=== PATIENT | female | born 1925 | race Caucasian/White ===

== ENCOUNTER 2016-12-23 00:51 | Inpatient (IN) | payer MEDICARE, OTHER ==
[~2016-12-23] VITALS: Ht 165.1 cm; Wt 59.8 kg
[2016-12-23] VITALS (8 sets, daily range): BP systolic 116–155; BP diastolic 66–88; PULSE 78–115; RESP 14–20; O2SAT 94–98
[~2016-12-23 00:51] MED LIST: ACET-171 PO; CEPH500C PO; CHOL10008 PO; ENOX40DI8 SUBQ; FOLI0.8T PO; FURO40TA4 PO; LIDOCAINE; OXYC5TAB72 PO; PRAM0.252 PO; TRAZ-115 PO; VERA180T5 PO; WARF5TAB7 PO
--- NOTE | 2016-12-23 01:17 | ED.REPORT ---
HPI-Abd Pain F 40 and Over Date of Service Dec 23, 2016 ED Provider: Dr. Cason Pt is an 89 year old female who presents to the ED with complaints of intermittent abdominal pain and an exacerbation of her restless leg syndrome. She reports a recent diagnosis of thickening of the lining of her colon found on a CT scan, ans she is scheduled for a colonoscopy in 6 days. She states that she has been having increased nausea and diarrhea tonight as well. She denies any fevers, vomiting, chest pain, shortness of breath or any other symptoms. Nursing Notes Stated Complaint: ABDOMINAL PAIN Chief Complaint: Female Abdominal Pain Nursing Notes Reviewed: Yes Allergies: Coded Allergies: No Known Allergies (Verified , 04/08/16) Scheduled Cephalexin (Cephalexin) 500 Mg Capsule 500 MG PO TID Cholecalciferol (Vitamin D3) (Vitamin D3) 1,000 Unit Tab.chew 1,000 UNIT PO DAILY Enoxaparin Sodium (Enoxaparin Sodium) 40 Mg/0.4 Ml Syringe 40 MG SUBQ Q24 Folic Acid (Folic Acid) 0.8 Mg Tablet 0.8 MG PO DAILY Furosemide (Furosemide) 40 Mg Tablet 40 MG PO DAILY Pantoprazole DR (Pantoprazole DR) 40 Mg Tablet.dr 40 MG PO DAILY Pramipexole Dihydrochloride (Mirapex) 0.25 Mg Tablet 0.5-1 TAB PO LATE AFTERNOON Pramipexole Dihydrochloride (Mirapex) 0.25 Mg Tablet 1-2 TAB PO HS Trazodone (Trazodone) 50 Mg Tablet 12.5-25 MG PO HS Verapamil ER (Verapamil ER) 180 Mg Tablet.er 180 MG PO DAILY Warfarin Sodium (Warfarin Sodium) 5 Mg Tablet 2.5 MG PO [id number] Warfarin Sodium (Warfarin Sodium) 5 Mg Tablet 5 MG PO MON-WED-FRI Scheduled PRN Acetaminophen (Acetaminophen) 500 Mg Tablet 1,000 MG PO Q8HR PRN PRN For Pain oxyCODONE (oxyCODONE) 5 Mg Tablet 5 MG PO Q4H PRN PRN For Moderate Pain Miscellaneous Medications ([Lidocaine]) General Time Seen by MD: 01:17 Chief Complaint Abdominal pain Hx Obtained From: Patient, Daughter Arrived By: Ambulance Sudden in Onset?: No Onset Occurred: More than a week ago... Symptom Duration: Intermittent Location: : Diffuse Quality: Painful Severity: Current: Mild Severity: Maximum: Mild Similar Sx Previous: Yes Past Medical History Past Medical History Chronic cough Palpitations Arthritis Hypertension CHF Atrial fibrillation Hyperlipidemia Past Surgical History Left hip surgery, fracture repair Family History non-contributory Smoking History Never Smoker Social History Alcohol Use: Denies alcohol use Drug Use: Denies drug use Ambulatory Status Independent Review of Systems Constitutional: Denies: Chills, Fever, Malaise Respiratory: Denies: Non-productive cough, Shortness of breath, Wheezing Cardiovascular: Denies: Chest pain GI: Reports: Abdominal pain, Diarrhea, Nausea, Denies: Constipation, Vomiting Female: Denies: Dysuria, Urinary frequency, Urinary urgency Musculoskeletal: Denies: Back pain Complete sys rev & neg: except as marked. Physical Exam Vital Signs Vital Signs (First) Date Time Temp Pulse Resp B/P Pulse Ox O2 Delivery O2 Flow Rate FiO2 12/23/16 00:55 36.9 104 14 124/73 96 Room Air Initial VS: Reviewed Head / Eyes: Atraumatic, Normocephalic, PERRL ENT: Mucous membranes moist, Conjunctiva normal, No scleral icterus Neck: Supple, Non-tender, Full range of motion Skin: Warm, Dry, No cyanosis Neurologic: Alert, Oriented, Nonfocal General/Constitutional: Awake, Alert Distress / Hydration: Positive: Distress mild Appearance / Presentation: Positive: Uncomfortable Cardiovascular: Heart rate NL, Regular rhythm, Heart sounds NL, No gallop, No murmurs, No rubs Heart Rate / Rhythm: Positive: Tachycardia Abdomen: Soft Bowel Sounds / Distention: Positive: Distention moderate Diffusely tender Back: Atraumatic, Inspection NL Interpretation & Diagnostics Lab Results Interpretation Result Diagram: 12/23/16 0612/23/16 06 Test 12/23/16 01:11 Prothrombin Time 27.3sec (8.1-12.5) Prothromb Time International Ratio 2.50ratio Lactic Acid Level 1.1mmol/L (0.4-2.0) Magnesium Level 2.1mg/dL (1.6-2.6) Troponin T 0.010ug/L (0.0-0.011) Lipase 21U/L (13-60) ECG Interpretation ECG Interpretation: A-fib - 117 Low voltage, extremity leads Prolonged QT interval Time: 01:12 Interpreted by: ED physician Re-Eval/Medical Decision Med Decision/Clinical Course Patient presents with rather intense abdominal pain. She has a diffusely tender and distended abdomen. X-rays are consistent with a small bowel obstruction. Air-fluid levels throughout. She has a leukocytosis and she is on warfarin so therefore were going to proceed with CT scan. I plan on admitting her to the hospitalist service with possible GI or surgical consultation. Source of Hx: Old records, Family Counseled Regarding: Diagnosis, Lab results, Need for admission Discharge & Departure Shift Change Sign-Out Response to Therapy: Improved Primary Impression: Bowel obstruction Intestinal obstruction type: other intestinal obstruction Qualified Code: K56.69 - Other intestinal obstruction Disposition: ADMITTED TO HOSPITAL Discharge Condition All VS Reviewed: Yes Condition: Stable Referrals: Manju Monge MD (PCP) Pia Attestation Portions of this note were transcribed by Sonali Turner. I, Dr. Cason personally performed the history, physical exam and medical decision-making; I reviewed and confirmed the accuracy of the information in the transcribed note. Signed by: Pia Palmer, 12/22/2016 [Time]. copies to: Manju Monge MD, Todd P DO Dec 23, 2016 01:17 MESERET TURNER Dec 23, 2016 01:26 Blood Urea Nitrogen 17mg/dL (8-27) Creatinine 0.50mg/dL (0.57-1.00) Estimat Glomerular Filtration Rate 166mL/min (>59) Glucose Level 135mg/dL (60-99) Lactic Acid Level 1.1mmol/L (0.4-2.0) Calcium Level 9.0mg/dL (8.5-10.1) Magnesium Level 2.1mg/dL (1.6-2.6) Total Bilirubin 0.4mg/dL (0.0-1.2) Aspartate Amino Transf (AST/SGOT) 16U/L (0-50) Alanine Aminotransferase (ALT/SGPT) 12U/L (0-32) Alkaline Phosphatase 94U/L (25-165) Troponin T 0.010ug/L (0.0-0.011) Total Protein 6.1g/dL (6.4-8.4) Albumin 3.2g/dL (3.4-5.0) Lipase 21U/L (13-60) ECG Interpretation ECG Interpretation: A-fib - 117 Low voltage, extremity leads Prolonged QT interval Time: 01:12 Interpreted by: ED physician Re-Eval/Medical Decision Med Decision/Clinical Course Patient presents with rather intense abdominal pain. She has a diffusely tender and distended abdomen. X-rays are consistent with a small bowel obstruction. Air-fluid levels throughout. She has a leukocytosis and she is on warfarin so therefore were going to proceed with CT scan. I plan on admitting her to the hospitalist service with possible GI or surgical consultation. Source of Hx: Old records, Family Counseled Regarding: Diagnosis, Lab results, Need for admission Discharge & Departure Primary Impression: Bowel obstruction Intestinal obstruction type: other intestinal obstruction Qualified Code: K56.69 - Other intestinal obstruction Disposition: ADMITTED TO HOSPITAL Discharge Condition All VS Reviewed: Yes Condition: Stable Referrals: Manju Monge MD (PCP) Pia Attestation Portions of this note were transcribed by Sonali Turner. I, Dr. Cason personally performed the history, physical exam and medical decision-making; I reviewed and confirmed the accuracy of the information in the transcribed note. Signed by: Pia Palmer, 12/22/2016 [Time]. copies to: Manju Monge MD, Todd P DO Dec 23, 2016 01:17 MESERET TURNER Dec 23, 2016 01:26
[2016-12-23 01:29] LABS: BASOPHILS % (AUTO) 0.3 % (0-3); EOSINOPHILS % (AUTO) 1.3 % (0-5); MONOCYTES % (AUTO) 9.1 % (4-12); Mean Corpuscular Hemoglobin 26.2 pg (27.0-35.0); Mean Corpuscular Volume 84.1 fL (81-100); NEUTROPHILS % (AUTO) 70.7 % (40-74); Platelet Count 377 bil/L (150-400)
[2016-12-23] MEDS ORDERED: 0.9% Sodium Chloride 500 ML IV ONE (01:35)
[2016-12-23] MEDS: HYDROmorphone 0.5 mg/0.5 mL iSecure Syringe IVPUSH PRN ×5 (01:39→23:20)
[2016-12-23] MEDS: Ondansetron 2 mg/mL 2 mL Inj IVPUSH PRN ×2 (01:39→03:06)
[2016-12-23 01:44] LABS: INR 2.5 ratio
[2016-12-23 01:57] LABS: TROPONIN T 0.01 ug/L (0.0-0.011)
[2016-12-23 02:07] LABS: Magnesium 2.1 mg/dL (1.6-2.6)
[2016-12-23] MEDS ORDERED: Ondansetron 2 mg/mL 2 mL Inj IVPUSH PRN ×2 (03:25→04:05)
--- NOTE | 2016-12-23 04:00 | NUR ---
Admission and NG Patient came the [facility] on an ER gurney with her [employer]. Patient was moved into bed with a slide board and assessment completed. Patient reported generalized abdominal pain and mild nausea without vomiting. Patient had an NG placed in ER. Placement verified by auscultation of the stomach and tube was secured to the nose with an adhesive NG hardy. NG tube at 65cm and set to low intermittent suction. Normal saline started at 100ml/hr and patient reports no needs at this time. Admission completed and fall precautions in place.
[2016-12-23] MEDS ORDERED: PANT40TA3 PO (04:38)
[2016-12-23] MEDS: 0.9% Sodium Chloride 1,000 ML IV SCH ×3 (05:15→22:56)
--- NOTE | 2016-12-23 05:20 | PCM.HPMED ---
Subjective Date of Service Dec 23, 2016 Primary Provider: Admitting Physician: Анна Brunner DO Primary Care Physician: Manju Monge MD Attending Physician: Анна Brunner DO Admit Status: From the Emergency Department Chief Complaint: Abdominal pain and nausea History of Present Illness: 89-year-old female patient with history of atrial fibrillation on Coumadin, hypertension, irritable bowel syndrome, arthritis presented to the ER with complaint of worsening abdominal pain. Patient reports for the past few months she has been experiencing worsening diarrhea, vomiting and abdominal pain. She states that she was seen by Dr. Cisneros of gastroenterology and they had planned/ scheduled a colonoscopy. Patient's daughter reports that Dr. Cisneros informed them that it was possible that there was a cancer/tumor causing an obstruction. Patient reports that tonight she felt increasingly weak and nauseated. Patient reports that she felt like she needed to vomit but was unable to. Patient states that she had a bowel movement this morning, but has not had anything since then. Patient reports that she is able to burp, but has not been able to pass gas. Patient describes the pain in her abdomen as diffuse and sharp. She denies any radiation of the pain. Patient denies any fever, chills, myalgias, chest pain or shortness of breath. Patient denies any hematochezia or melena. Vital signs in the ER as follows, temperature 36.9, pulse 104, respiratory rate 14, blood pressure 124/73, pulse ox 96 on room air. Review of Systems: A comprehensive review of systems was conducted with the patient and found to be negative except as above in the History of Present Illness. Allergies Coded Allergies: No Known Allergies (Verified , 04/08/16) Home Medications Furosemide 40 mg, one tablet daily Ketoconazole topical cream Pantoprazole 40 mg daily Potassium chloride 8 mEq 1 tablet daily Pramipexole 0.25 mg, 1 tablet in the afternoon and 2 tablets at bedtime Verapamil 180 mg 1 tablet daily Vitamin D3 1000 units 1 tablet daily Warfarin 5 mg tablet, 1 tablet Monday, half tablet Monday Iron supplements Folate acid supplements Trazodone PMH Atrial fibrillation on anticoagulation with Coumadin Hypertension Hyperlipidemia Mitral regurgitation Chronic cystitis Irritable bowel syndrome Restless leg syndrome Arthritis Sleep apnea requiring CPAP at night Spondylolysis of cervical spine Closed fracture of left femoral neck-2016 Surgical History Cholecystectomy Hysterectomy Bladder sling Tonsillectomy and adenoidectomy Appendectomy Left hip surgery Right hip replacement Family History Brother-cardiac issues Father-sudden cardiac Mother-CVA Social History Hx Alcohol Use: Yes (very rarely) Hx Substance Use: No Hx Tobacco Use: No Smoking Status: Never Smoker Living Arrangement: with Family Exam Vital Signs Vital Sign - Last Date Time Temp Pulse Resp B/P Pulse Ox O2 Delivery O2 Flow Rate FiO2 12/23/16 04:14 36.6 115 18 155/79 97 Room Air Intake and Output 12/22/16 12/22/16 12/23/16 Cumulative From/Thru 15:00 23:00 07:00 12/23/16 00:55 - 12/23/16 04:16 Intake Total 500 ml 500 ml Balance 500 ml 500 ml Intake IV Total 500 ml 500 ml Exam General: Mild distress, well-developed, well-nourished, appropriately interactive HEENT: NG tube in place .Normocephalic, atraumatic. External ears without defect. Pupils equal, round, and reactive to light and accommodation. Moist conjunctivae. Oropharynx with moist mucosa. Neck: Supple with full range of motion.No lymphadenopathy Cardiovascular: Irregularly irregular rate and rhythm with systolic murmur auscultated . No rubs, or gallops appreciated Pulmonary: Clear to auscultation bilaterally with no crackles, wheezes, or rhonchi. Normal respiratory effort with no use of accessory muscles. Abdomen: Diffusely tender abdomen. Hypotonic bowel tones present. Soft and nondistended abdomen . Extremities: Trace pitting edema bilateral lower extremities Skin: Normal temperature, turgor, and texture; no rash, ulcers, or subcutaneous nodules appreciated. Psychiatric: Normal mood and affect. Alert and oriented to person, place, and time. Lab and Diagnostics Result Diagram: 12/23/1611012/23/16 011 X-Rays, CTs and MRIs CT abdomen and pelvis with contrast-- -- In the mid to distal descending colon there is an irregular concentric lesion narrowing the bowel lumen. Beyond this point the colon is collapsed. Proximal to the lesion there is severe dilatation of the cecal region. There is associated diffuse dilatation of the distal and mid small bowel. There is no bowel wall thickening in the small bowel and no intramural air. There is some stranding in the mesenteric fat. -- Concentric lesion in the ascending colon producing colonic obstruction and secondary small bowel obstruction. The appearance is suspicious for adenocarcinoma of the colon Additional Diagnostics: Most recent echocardiogram was 03/11/2014 -"EF was 55-60%. Left atrium was severely dilated. Right atrium was severely dilated. There was mild to moderate mitral regurg. There was mild tricuspid regurg." Assessment & Plan Acute small bowel obstruction secondary to concentric lesion in the ascending colon, present on admission, ongoing -Patient presented with worsening abdominal pain and nausea -Patient previously seen by Dr. Cisneros of GI with plan for colonoscopy -CT performed in the ER demonstrating small bowel obstruction secondary to concentric lesion in the ascending colon, suspicious for adenocarcinoma -Discussed results with patient and family and are aware it could represent a malignancy -NG tube placed -Pt is NPO -NS 100mls/hr -Dilaudid available for pain management -ER physician spoke with GI, and they will see the patient in the AM -Continue to monitor labs Acute leukocytosis unknown etiology, present on admission, ongoing -Patient has mild leukocytosis 11.5, neutrophils 70.0 -UA pending -No clear etiology at this time -Have not started the patient on antibiotics Chronic atrial fibrillation anticoagulated with Coumadin, present on admission, stable -Continue with home dose of verapamil -Last echo done in 2013 -Pharmacy to dose warfarin Chronic hypertension, stable, present on admission, ongoing -Continue with home medications -Continue to monitor Obstructive sleep apnea managed with CPAP, stable, present on admission, ongoing -Day team to contact respiratory therapy for CPAP machine Restless leg syndrome, chronic, stable -Continue with home medications -Continue to monitor PCP: Gastroenterology: Dr. Cisneros Electrical Tester Battery: Dr. Rascon CODE STATUS: Full code Patient is admitted under inpatient status with expected length of stay greater than 2 midnights due to severity of presenting symptoms, risk of adverse event, and complexity of treatment plan. Pain Evaluation: Adequate Pain Control VTE Prophylaxis: SCDs Resuscitation Status: CPR: Attempt Resuscitation Attending Statement The patient was seen and examined together with house staff on 12/23/2016 and I agree with the history, exam and plan as outlined in the note above. copies to: Manju Monge MD, Tara L DO Dec 23, 2016 05:04 Анна Brunner DO Dec 23, 2016 05:42
[2016-12-23 06:27] LABS: BASOPHILS % (AUTO) 0.3 % (0-3); EOSINOPHILS % (AUTO) 0.3 % (0-5); Mean Corpuscular Hemoglobin 26.1 pg (27.0-35.0); Mean Corpuscular Volume 84.7 fL (81-100); NEUTROPHILS % (AUTO) 77.4 % (40-74); Platelet Count 368 bil/L (150-400)
--- NOTE | 2016-12-23 08:50 | DRSVH ---
PROCEDURE: CT ABDOMEN AND PELVIS WITH CONTRAST ([id number]) INDICATIONS: abdominal pain, known colon lesion, leukocytosis TECHNIQUE: After the administration of intravenous contrast, 5 mm thick sections acquired from the diaphragm to the symphysis. 5 mm coronal and sagittal reformats were acquired. For radiation dose reduction, the following was used: automated exposure control, adjustment of mA and/or kV according to patient elsie lakhani. COMPARISON: [facility], CT, CT ABD PELVIS W CON, 12/06/2016, 12:00. FINDINGS: Image quality: Excellent. ABDOMEN: Lung bases: Lung bases are clear. Heart size is normal. Solid organs: Liver and spleen are normal in size and enhancement. Gallbladder surgically absent. Th ere is mild intrahepatic biliary ductal dilatation and the common bile duct is mildly ectatic through out its course. Pancreas enhances normally. No adrenal nodules. Kidneys demonstrate normal size and enhancement, without hydronephrosis. Peritoneum and bowel: The stomach is fluid-filled. There is diffuse, moderate dilatation throughout t he small bowel. A thickwalled, enhancing mass is present within the mid ascending colon. There is mar ked dilatation of the cecum. The downstream colon is decompressed. Nodes and vessels: No retroperitoneal or mesenteric adenopathy by size criteria. Aorta and inferior vena cava are normal in size. There are scattered atheromatous calcifications throughout the aorta and iliac arteries bilaterally. Miscellaneous: No ventral hernias. PELVIS: Genitourinary: Bladder wall thickness is normal. The uterus is nonvisualized and may be surgically absent. Miscellaneous: No inguinal hernias or adenopathy. Bones: No suspicious bony lesions. No vertebral body compression fractures. Bilateral hip arthropl asties are grossly intact. IMPRESSION: 1. 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 Note: The preliminary [facility] interpretation and the final report are concordant. Dictated by: Brynn Marques M.D. on 12/23/2016 at 8:43 Approved by: Brynn Marques M.D. on 12/23/2016 at 8:48
--- NOTE | 2016-12-23 09:24 | DRSVH ---
PROCEDURE: X-RAY ACUTE ABDOMINAL SERIES ([id number]) INDICATIONS: acute abdominal pain TECHNIQUE: One view chest and two views of the abdomen were acquired. COMPARISON: Merged With [facility], CT, CT ABD PELVIS W CON, 12/23/2016, 2:50. FINDINGS: Surgical changes and devices: Bilateral hip arthroplasties and cholecystectomy clips. Chest: Lungs are clear. Heart size is normal. No pleural effusions. No pneumoperitoneum. Abdomen: Abnormal bowel gas pattern is present. Asymmetric dilatation of small bowel throughout the abdomen and pelvis with paucity of gas within the colon. No pneumatosis or bowel wall thickening. No pneumoperitoneum. Bones: No suspicious bony lesions. IMPRESSION: Persistent small bowel obstructive pattern. Dictated by: Marcial YIN Interpreted: Brynn Marques MD on 12/23/2016 at 9:22 Transcribed by: JONATAN on 12/23/2016 at 9:23 Approved by: Brynn Marques M.D. on 12/23/2016 at 14:53
--- NOTE | 2016-12-23 10:49 | PCM.PNMED ---
Subjective Date of Service Dec 23, 2016 Subjective 89-year-old female patient with history of atrial fibrillation on Coumadin, hypertension, irritable bowel syndrome, arthritis presented to the ER with complaint of worsening abdominal pain. Today, she states that she has had 2 loose bowel movements since last night. One bowel movement was very large. She is no longer nauseous. Her abdominal pain is still present, but feels better after the bowel movement. She noticed that her abdomen is also less distended. Exam Vital Signs Vital Sign - Last Date Time Temp Pulse Resp B/P Pulse Ox O2 Delivery O2 Flow Rate FiO2 12/23/16 08:00 96 12/23/16 04:14 36.6 18 155/79 97 Room Air Intake and Output 12/22/16 12/22/16 12/23/16 Cumulative From/Thru 15:00 23:00 07:00 12/23/16 00:55 - 12/23/16 06:43 Intake Total 500 ml 500 ml Balance 500 ml 500 ml Intake Oral 0 ml 0 ml IV Total 500 ml 500 ml # Voids 1 1 # Bowel Movements 1 1 Exam General: Mild distress, well-developed, well-nourished, appropriately interactive HEENT: NG tube in place .Normocephalic, atraumatic. External ears without defect. Pupils equal, round, and reactive to light and accommodation. Moist conjunctivae. Oropharynx with moist mucosa. Neck: Supple with full range of motion.No lymphadenopathy Cardiovascular: Irregularly irregular rate and rhythm with systolic murmur auscultated . No rubs, or gallops appreciated Pulmonary: Clear to auscultation bilaterally with no crackles, wheezes, or rhonchi. Normal respiratory effort with no use of accessory muscles. Abdomen: Mild diffusely tender abdomen. Hyperactive bowel tones present. Soft and nondistended abdomen . Extremities: Trace pitting edema bilateral lower extremities Skin: Normal temperature, turgor, and texture; no rash, ulcers, or subcutaneous nodules appreciated. Psychiatric: Normal mood and affect. Alert and oriented to person, place, and time. IVs and Medications Medications Reviewed: Medications were reviewed in detail Lab and Diagnostics Result Diagram: 12/23/1660412/23/16604 X-Rays, CTs and MRIs PROCEDURE: CT ABDOMEN AND PELVIS WITH CONTRAST IMPRESSION: 1. 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 Approved by: Brynn Marques M.D. on 12/23/2016 at 8:48 PROCEDURE: X-RAY ACUTE ABDOMINAL SERIES IMPRESSION: Persistent small bowel obstructive pattern. Dictated by: Marcial YIN Interpreted: Brynn Marques MD on 12/23/2016 at 9:22 Transcribed by: JONATAN on 12/23/2016 at 9:23 Additional Diagnostics Most recent echocardiogram was 03/11/2014 -"EF was 55-60%. Left atrium was severely dilated. Right atrium was severely dilated. There was mild to moderate mitral regurg. There was mild tricuspid regurg. Assessment & Plan #Acute bowel obstruction secondary to concentric lesion in the ascending colon , present on admission, resolving -Patient presented with worsening abdominal pain and nausea, which improved after bowel movements this morning. -Patient previously seen by Dr. Cisneros of GI with plan for colonoscopy -CT performed in the ER demonstrating small bowel obstruction secondary to concentric lesion in the ascending colon, suspicious for adenocarcinoma -Discussed results with patient and family and are aware it could represent a malignancy -NG tube placed -Pt is NPO -NS 100mls/hr -Dilaudid available for pain management -ER physician spoke with GI, and they will see the patient today -will hold warfarin in case colonoscopy and biopsy decided on current admission, current INR 2.5 # suspected colon cancer,under workup -awaiting colonoscopy and biopsy #Acute leukocytosis due to SBO, present on admission, ongoing -Patient had mild leukocytosis 11.5, neutrophils 70.0 initially. -UA pending -No clear etiology at this time -Have not started the patient on antibiotics #Chronic atrial fibrillation anticoagulated with Coumadin, present on admission , stable -Continue with home dose of verapamil -Last echo done in 2013 -hold warfarin for now #Chronic hypertension, stable, present on admission, ongoing -Continue with home medications -Continue to monitor #Obstructive sleep apnea managed with CPAP, stable, present on admission, ongoing -Day team to contact respiratory therapy for CPAP machine #Restless leg syndrome, chronic, stable -Continue with home medications -Continue to monitor PCP: Gastroenterology: Dr. Cisneros Operator Coating Furnace: Dr. Rascon CODE STATUS: Full code disposition:pending hspital course and GI recs VTE Prophylaxis: SCDs VTE Mechanical Devices: Intermittant Pneumatic CD Resuscitation Status: CPR: Attempt Resuscitation Joselyn Oseguera DO Dec 23, 2016 10:38 Ismael Vasquez MD Dec 23, 2016 14:18
--- NOTE | 2016-12-23 11:41 | NUR ---
Social Work: Initial Assessment D: Per EMR review, pt is an 89 year old female admitted for bowel obstruction/AFIB with RVR. Pt is Medicare with [employer] Supplement; pt has no LTC insurance or VA benefits. PCP is Manju Monge MD. NOK is Courtney Resendiz, Spouse, . Advanced directives completed but not on file- family will locate a copy and provide for pt's chart. Readmit score not entered at this this time. CIRCULATION ANALYST met with pt and family at bedside. Sw role explained and contact information provided. See initial assessment. Pt and spouse live in an Independent Living facility on [facility]. Pt is I with ADLs and uses a 4WW at baseline. Pt continues to drive and has no concerns about discharge home when medically stable. Pt states she has no steps to enter her home. She has a history with [facility] for RN and PT however is not currently open for services. Pt has also been a resident at [facility]. Pt has very good family support and has a daughter who is an RN and flying in to stay with the pt for several weeks. Pt and family would like a new order for home health. HH CHOICE LIST PROVIDED. Preference is for [facility]. CIRCULATION ANALYST will review pt's clinical progress and discuss with MD whether HH is appropriate for the pt. F2F is in folder for MD signature if pt meets criteria. A: Pt who is I at baseline. P: Anticipate pt to discharge home; CIRCULATION ANALYST to r/o HH for this pt. Preference is for [facility] if pt meets criteria. No referral made at this time. LUIS MANUEL Gilbert Addendum: 12/23/16 at 1146 by BRADLEY NOWAK SS Amended: Links added.
--- NOTE | 2016-12-23 18:05 | PCM.CHPMED ---
Subjective Date of Service: Dec 23, 2016 Primary Physician: Admitting Physician: Анна Brunner DO Primary Care Physician: Manju Monge MD Attending Physician: Анна Brunner DO Chief Complaint: Chief Complaint: GI consult note: Abdominal pain, nausea. History of Present Illness: This is an 89-year-old female with past medical history significant for atrial fibrillation on chronic Coumadin, hypertension, irritable bowel syndrome, past cholecystectomy who presented to [facility] on 12/22/2016 for nausea and abdominal pain. The patient's GI history is significant for chronic abdominal discomfort. The patient was seen in the GI clinic in May 2015 due to a change in bowel patterns, alternating diarrhea and constipation. The patient was diagnosed with narcotic bowel syndrome and EGD and colonoscopy were offered but patient declined. Her symptoms have progressed since this time and she states that now she has chronic diarrhea and bowel incontinence occurring several times per week. She also suffered from some unintentional weight loss. The patient most recently saw Dr. Cisneros on 12/14/2016 in GI clinic to review a CAT scan that showed irregularity with enhancement of colonic mucosa in the ascending colon. Dr. Cisneros felt the differential included cancer and spoke to patient about treatment such as surgery and possible chemotherapy. The patient did state at that time that she would like to pursue aggressive treatment. A colonoscopy was set up at that point to be performed on an outpatient basis. Beginning approximately one week ago the patient began to have worsening abdominal pain that was present in the right upper quadrant. The patient states that she had nausea associated but was not able to vomit. The patient continues to have multiple bowel movements per day that are described as diarrhea. She has had several episodes of incontinence as well. She denies any melena, hematochezia, hemoptysis, hematemesis, shortness of breath, chest pain or pressure, fevers, chills. Patient's initial vitals in the hospital were temperature 36.9 Celsius, pulse 104, respiratory rate 14, blood pressure 124/73 Her initial laboratory results showed a WBC of 11.7, hemoglobin 10.7, hematocrit 34.4, and platelets of 377. Her CMP showed a blood glucose of 135 but was otherwise without concerning abnormalities. Albumin was 3.2, lipase 21. Total bilirubin 0.4, AST 16, ALT 12 , alkaline phosphatase 94. Occult blood test was positive. 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 The patient was admitted to the hospital and NG tube was placed, NPO status, patient was given IV fluids, and Dilaudid was given for pain control. Today, the patient states that her abdominal pain is much improved. She continues to have multiple episodes of diarrhea today. She states that she has had bowel incontinence throughout the day. She denies any melena or hematochezia today. Review of Systems: A comprehensive review of systems was conducted with the patient and found to be negative except as above in the History of Present Illness. PMH Past Medical History History of chronic abdominal pain Recurrent UTIs History of chronic cystitis Hypertension Hyperlipidemia Atrial fibrillation on chronic warfarin Mitral regurgitation Chronic pain Irritable bowel syndrome Restless leg syndrome Sleep apnea requiring CPAP Closed fracture left femoral neck Chronic diarrhea. Surgical History Cholecystectomy Hysterectomy Bladder sling Tonsillectomy and adenoidectomy Appendectomy Left hip surgery Right hip replacement Home Medications Deisi Vera. [id number] 1925 12/14/2016 12:10 PM /5 acetaminophen 500 mg tablet take 2 tablet by oral route every 8 hours as needed FUROSEMIDE 40MG TABLET = TAKE ONE TABLET BY MOUTH ONCE DAILY TAKE AN EXTRA 1/2 TAB ONCE DAILY NEEDED FOR EDEMA pantoprazole 40 mg tablet,delayed release take 1 tablet by oral route every day potassium chloride ER 8 mEq tablet,extended release take 1 tablet by oral route every day with food pramipexole 0.25 mg tablet take 1 tablet in late afternoon and 2 tablets before bedtime for RLS verapamil ER 180 mg 24 hr capsule,extended release take 1 capsule by oral route every day Vitamin D3 1,000 unit capsule d1 daily warfarin 5 mg tablet take 1/2 tablet (2.5mg) daily except 1 tablet (5mg) MWF or as directed by coumadin clinic Allergies: Coded Allergies: No Known Allergies (Verified , 04/08/16) Family History Family History Family history is negative for gastrointestinal cancer. Father and brother both of heart attacks at the age of 80. Mother had CVA, colitis. Brother had colitis with colectomy. Social History Hx Alcohol Use: Yes (very rarely)Hx Substance Use: NoHx Tobacco Use: No Smoking Status: Never Smoker Living Arrangement: with Family Exam Vital Signs Vital Sign - Last Date Time Temp Pulse Resp B/P Pulse Ox O2 Delivery O2 Flow Rate FiO2 12/23/16 11:29 36.9 78 18 130/75 96 Room Air Intake and Output 12/22/16 12/22/16 12/23/16 Cumulative From/Thru 15:00 23:00 07:00 12/23/16 00:55 - 12/23/16 06:43 Intake Total 500 ml 500 ml Balance 500 ml 500 ml Intake Oral 0 ml 0 ml IV Total 500 ml 500 ml # Voids 1 1 # Bowel Movements 1 1 Additional Information: General: No acute distress, well-developed, well-nourished, appropriately interactive HEENT: Normocephalic, atraumatic. External ears without defect. Pupils equal, round, and reactive to light and accommodation. Anicteric sclerae, moist conjunctivae, and no lid lag. Neck: Supple with full range of motion. No jugular venous distension. No bruits. No lymphadenopathy or thyromegaly. Cardiovascular: Regular rate and rhythm with no murmurs, rubs, or gallops appreciated Pulmonary: Clear to auscultation bilaterally with no crackles, wheezes, or rhonchi. Normal respiratory effort with no use of accessory muscles. Abdomen: Bowel tones present. Soft, nondistended, nontender. No hepatosplenomegaly or masses appreciated. Extremities: No clubbing, cyanosis, edema, or lymphadenopathy appreciated. Skin: Normal temperature, turgor, and texture; no rash, ulcers, or subcutaneous nodules appreciated. Neurological: Cranial nerves grossly intact. Normal muscle strength, tone, and bulk. Reflexes, coordination, and sensory function within normal limits. No known gait impairment. Psychiatric: Normal mood and affect. Alert and oriented to person, place, and time. Lab and Diagnostics Result Diagram: 12/23/1660412/23/16 06 X-Rays, CTs and MRIs Abdominal x-ray 12/23/2016: IMPRESSION: Persistent small bowel obstructive pattern. Dictated by: Marcial Griffith RRSoham Interpreted: Brynn Marques MD on 12/23/2016 at 9:22 CT of the abdomen and pelvis with contrast on 12/23/2016: IMPRESSION: 1. 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 Note: [facility] and the final report are concordant. Dictated by: Brynn Marques M.D. on 12/23/2016 at 8:43 Assessment & Plan Assessment This is a 89-year-old female who states that since 2014 she has had alternating diarrhea and constipation. More recently she has had increasing episodes of diarrhea as well as bowel incontinence. She is also had an unintentional weight loss of approximately 10 pounds in last year. 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 Colonic mass: -Patient will need colonoscopy. Plan is for Monday. Will monitor INR with goal to be at 1.5. Full bowel prep tomorrow. -Continue NG tube. -Clear liquid diet ordered -CEA level ordered. Problems: Pain Evaluation: Adequate Pain Control VTE Prophylaxis: SCDs VTE Mechanical Devices: Intermittant Pneumatic CD Resuscitation Status: CPR: Attempt Resuscitation Attending Statement Patient seen and examined. Agree with assessment and plan as described by Dr Smith. Obstruction symptom have abated. Prep tomorrow. Colonoscopy Monday. Please do not assess a physician charge from me for this note. Juan Smith DO Dec 23, 2016 15:39 Willian Sanchez MD Dec 23, 2016 22:09
--- NOTE | 2016-12-23 18:48 | NUR ---
Shift: No c/o nausea or vomiting, NG tube with approx 100mL output. Pending Gi consult. Care ongoing.
[2016-12-24] VITALS (9 sets, daily range): BP systolic 105–157; BP diastolic 49–97; PULSE 67–128; RESP 16–20; O2SAT 92–97
[2016-12-24 03:32] LABS: BASOPHILS % (AUTO) 0.6 % (0-3); EOSINOPHILS % (AUTO) 3.6 % (0-5); MONOCYTES % (AUTO) 13.7 % (4-12); Mean Corpuscular Hemoglobin 26.2 pg (27.0-35.0); Mean Corpuscular Volume 86.6 fL (81-100); NEUTROPHILS % (AUTO) 55.6 % (40-74); Platelet Count 344 bil/L (150-400)
--- NOTE | 2016-12-24 03:35 | NUR ---
GI: NG secured and in place throughout shift to low intermittent suction. Green/brown NG output during shift. No bowel movements passed during shift. Denies nausea. No overt signs or symptoms of distress.
--- NOTE | 2016-12-24 05:02 | NUR ---
NG tube output: No previous shifts have appeared to have documented NG drainage amount for their shift, or have marked NG suction container for their prior shifts. Therefore, this shift, NG output of 800mL is the result of this shift and previous shifts NG output combined. Will notify following shifts that NG suction output is to be drained and documented each shift.
[2016-12-24] MEDS: HYDROmorphone 0.5 mg/0.5 mL iSecure Syringe IVPUSH PRN ×2 (06:09→15:19)
[2016-12-24 10:55] LABS: INR 2.73 ratio
--- NOTE | 2016-12-24 11:22 | PROG NOTE ---
[address] [address] PROGRESS NOTE PATIENT: ERNESTINE ENGLISH : 1925 MR#: [id number] ADMIT: 12/23/2016 JOB ID: [id number] DATE: 12/24/2016 SUBJECTIVE: The patient tolerated liquids but we inadvertently forgot to clamp her NG tube, so a lot of what she consumed simply ended up in the bedside canister. She certainly had no further symptoms of obstruction overnight. OBJECTIVE: Blood pressure this morning 145/49, breathing 20, pulse 106, temperature 36.6, 97% on room air. The patient was in no distress. Alert, oriented, appropriate, cooperative. Her daughter from [place] had arrived and was at the bedside. NG was in situ. Looked like there was a small amount of old blood in the tubing as well. LABORATORIES: INR is still pending for this morning. Hemoglobin is 10.0, white count 8.5, creatinine 0.42. The CEA level was within normal limits at 2.6. ASSESSMENT AND PLAN: An 89-year-old female with abnormal imaging concerning for an ascending colon malignancy. Her acute obstructive symptoms have subsided. She will receive bowel prep today by way of the NG tube. It will be a split prep with half the prep tomorrow morning between 6 and 8 a.m. NPO after 8 a.m. for procedure sometime mid to late morning. Based on her atrial fibrillation and age, I have requested anesthesia support for her sedation needs. Please do not apply a physician charge to this particular note today. This was a no charge visit. QUENTIN
[2016-12-24] MEDS: Verapamil SR 180 mg ER12 Tablet PO SCH (12:03)
--- NOTE | 2016-12-24 12:30 | PCM.PNMED ---
Subjective Date of Service Dec 24, 2016 Subjective 89-year-old female patient with history of atrial fibrillation on Coumadin, hypertension, irritable bowel syndrome, arthritis presented to the ER with complaint of worsening abdominal pain. Ms. Vera states that she continues to no longer have nausea or vomiting. Her abdominal pain has improved since she first come. She has no concerns this morning. Exam Vital Signs Vital Sign - Last Date Time Temp Pulse Resp B/P Pulse Ox O2 Delivery O2 Flow Rate FiO2 12/24/16 11:50 37.5 128 18 157/75 92 Room Air Intake and Output 12/23/16 12/23/16 12/24/16 Cumulative From/Thru 14:59 22:59 06:59 12/23/16 00:55 - 12/24/16 06:28 Intake Total 625 ml 832 ml 1957 ml Output Total 400 ml 1500 ml 1900 ml Balance 225 ml -668 ml 57 ml Intake Oral 0 ml 200 ml 200 ml IV Total 625 ml 632 ml 1757 ml Output Urine Total 400 ml 700 ml 1100 ml Gastric Drainage Total 800 ml 800 ml # Voids 2 2 5 # Bowel Movements 4 5 Exam General: Mild distress, well-developed, well-nourished, appropriately interactive HEENT: NG tube in place .Normocephalic, atraumatic. External ears without defect. Pupils equal, round, and reactive to light and accommodation. Moist conjunctivae. Oropharynx with moist mucosa. Neck: Supple with full range of motion.No lymphadenopathy Cardiovascular: Irregularly irregular rate and rhythm with systolic murmur auscultated . No rubs, or gallops appreciated Pulmonary: Clear to auscultation bilaterally with no crackles, wheezes, or rhonchi. Normal respiratory effort with no use of accessory muscles. Abdomen: Mild diffusely tender abdomen. Normal bowel tones present. Soft and nondistended abdomen . Extremities: Trace pitting edema bilateral lower extremities Skin: Normal temperature, turgor, and texture; no rash, ulcers, or subcutaneous nodules appreciated. Psychiatric: Normal mood and affect. Alert and oriented to person, place, and time. IVs and Medications Medications Reviewed: Medications were reviewed in detail Lab and Diagnostics Result Diagram: 12/24/16 0325 12/24/16 0325 X-Rays, CTs and MRIs PROCEDURE: CT ABDOMEN AND PELVIS WITH CONTRAST IMPRESSION: 1. 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 Approved by: Brynn Marques M.D. on 12/23/2016 at 8:48 PROCEDURE: X-RAY ACUTE ABDOMINAL SERIES IMPRESSION: Persistent small bowel obstructive pattern. Dictated by: Marcial YIN Interpreted: Brynn Marques MD on 12/23/2016 at 9:22 Transcribed by: JONATAN on 12/23/2016 at 9:23 Additional Diagnostics Most recent echocardiogram was 03/11/2014 -"EF was 55-60%. Left atrium was severely dilated. Right atrium was severely dilated. There was mild to moderate mitral regurg. There was mild tricuspid regurg. Assessment & Plan 89-year-old female patient with history of atrial fibrillation on Coumadin, hypertension, irritable bowel syndrome, arthritis presented to the ER with complaint of worsening abdominal pain. # suspected colon cancer,under workup -CT performed in the ER demonstrating small bowel obstruction secondary to concentric lesion in the ascending colon, suspicious for adenocarcinoma -Discussed results with patient and family and are aware it could represent a malignancy -CT abdomen and pelvis as above -awaiting colonoscopy and biopsy tomorrow -Bowel prep tonight and tomorrow morning -Clear liquid diet until midnight then NPO after midnight #Acute bowel obstruction secondary to concentric lesion in the ascending colon , present on admission, resolving -Patient presented with worsening abdominal pain and nausea, which improved after bowel movements on 12/23/16. -Patient previously seen by Dr. Cisneros of GI with plan for colonoscopy -NG tube placed -Dilaudid available for pain management -Hold warfarin in preparation for colonoscopy and biopsy with goal of INR 1.5. Colonoscopy tomorrow late morning or afternoon. #Acute leukocytosis due to SBO, present on admission, improving -Patient had mild leukocytosis 11.5, neutrophils 70.0 initially. -UA pending -No clear etiology at this time -Have not started the patient on antibiotics #Chronic atrial fibrillation anticoagulated with Coumadin, present on admission , stable -Continue with home dose of verapamil -Last echo done in 2013 -hold warfarin for now #Chronic hypertension, stable, present on admission, ongoing -Continue with furosemide -Continue to monitor #Obstructive sleep apnea managed with CPAP, stable, present on admission, ongoing -Contact respiratory therapy for CPAP machine once patient no longer has NG tube in place #Restless leg syndrome, chronic, stable -Continue with home medications -Continue to monitor PCP: Gastroenterology: Dr. Cisneros Accountant Cost: Dr. Rascon CODE STATUS: Full code disposition:pending hospital course and GI recs VTE Prophylaxis: SCDs VTE Mechanical Devices: Intermittant Pneumatic CD Resuscitation Status: CPR: Attempt Resuscitation Attending Statement The patient was seen and examined together with Dr. Oseguera on 12/24/2016 and I agree with the history, exam and plan as outlined in the note above. Joselyn Oseguera DO Dec 24, 2016 12:30 Ismael Vasquez MD Dec 24, 2016 16:57
[2016-12-24] MEDS ORDERED: Furosemide 10 mg/mL 2 mL Inj IVPUSH ONE (14:00)
[2016-12-24] MEDS: PEG/Electrolytes 4,000 mL Solution PO SCH (16:02)
--- NOTE | 2016-12-24 18:34 | NUR ---
Bowel Prep patient started prep at 1600hrs, GoLytely via NG tube. patient tolerated well. 2 liters in by 1830hrs. patient reported mild nausea once during prep, slowed intake of GoLytely and nausea resolved. continue to monitor.
[2016-12-25] VITALS (17 sets, daily range): BP systolic 85–149; BP diastolic 42–99; PULSE 63–130; RESP 16–20; O2SAT 88–98
[2016-12-25] MEDS: HYDROmorphone 1 mg/mL Inj IVPUSH PRN ×3 (00:11→17:31)
[2016-12-25 02:48] LABS: BASOPHILS % (AUTO) 0.3 % (0-3); EOSINOPHILS % (AUTO) 0.3 % (0-5); MONOCYTES % (AUTO) 10.7 % (4-12); Mean Corpuscular Hemoglobin 26.1 pg (27.0-35.0); NEUTROPHILS % (AUTO) 64.2 % (40-74); Platelet Count 315 bil/L (150-400)
[2016-12-25 03:14] LABS: INR 2.92 ratio
[2016-12-25] MEDS ORDERED: 0.9% Sodium Chloride 250 ML ONE (04:18)
[2016-12-25] MEDS: PEG/Electrolytes 4,000 mL Solution PO SCH (05:58)
--- NOTE | 2016-12-25 06:08 | NUR ---
INR/Colonoscopy prep: INR: 2.92 this a.m. 2 units FFP administered per physician order for INR >2. Repeat INR scheduled for 0900. FFP transfused with no adverse effects observed. Second half of go-lytely colonoscopy prep started at 0600 per physician order (2 liters to be administered between [id number]). Pt. to be NPO after 0800 per physician order.
[2016-12-25] MEDS ORDERED: KCl 40 mEq/D5W 500 mL 40 MEQ in IV Premix 500 EACH IV ONE (07:20)
[2016-12-25] MEDS ORDERED: Potassium Phos (mEq) Inj 40 MEQ in Dextrose 5% 500 ML IV ONE (07:35)
[2016-12-25] MEDS ORDERED: Potassium Chloride 20 mEq/15 mL 15mL Oral Soln PO ONE (07:35)
[2016-12-25] MEDS ORDERED: Potassium Chloride Inj 30 MEQ in Dextrose 5% 100 ML IV ONE (07:50)
[2016-12-25 09:57] LABS: INR 1.85 ratio
[2016-12-25] MEDS: Verapamil SR 180 mg ER12 Tablet PO SCH (10:25)
[2016-12-25] MEDS ORDERED: 0.9% Sodium Chloride 1,000 ML ONE (10:40)
[2016-12-25] MEDS ORDERED: fentaNYL-PF 50 mCg/mL 2 mL Inj ONE (10:41)
--- NOTE | 2016-12-25 10:42 | PCM.PNMED ---
Subjective Date of Service Dec 25, 2016 Subjective Overnight: Patient completed [employer] overnight. No complaints overnight. INR was 2.92 early AM, and pt received 2 U FFP Today: Pt reports sore throat from NG tube, and mild nausea, but no other complaints. Denies constipation, abdominal pain, vomiting, fevers, chills. Exam Vital Signs Vital Sign - Last Date Time Temp Pulse Resp B/P Pulse Ox O2 Delivery O2 Flow Rate FiO2 12/25/16 09:55 130 12/25/16 05:54 36.7 20 138/99 12/25/16 02:48 89 Room Air Intake and Output 12/24/16 12/24/16 12/25/16 Cumulative From/Thru 15:00 23:00 07:00 12/23/16 00:55 - 12/25/16 05:55 Intake Total 720 ml 464 ml 3141 ml Output Total 900 ml 800 ml 3600 ml Balance -180 ml -336 ml -459 ml Intake Oral 720 ml 0 ml 920 ml IV Total 1757 ml FFP 464 ml 464 ml Output Urine Total 900 ml 800 ml 2800 ml Gastric Drainage Total 800 ml # Voids 5 # Bowel Movements 6 0 11 Exam General: Alert, Oriented X3, Cooperative, No Acute Distress Head: Normocephalic, atraumatic. External ears normal. NG tube in place Eyes: PERRLA, EOMI. Anicteric sclerae. Mouth: Mouth Normal, Mucous Membranes Moist/[place] Neck: Neck supple with full range of motion. Chest & Lungs: Clear to auscultation bilaterally with no crackles, wheezes, or rhonchi. Cardiovascular: Irregular rhythm, systolic murmur present. Abdomen: Non-tender, Non-distended, No masses, Normoactive bowel tones, Soft Musculoskeletal: Normal Range of Motion Extremities: Mild edema Neurological: Grossly Neurologically Intact, Normal Speech Lab and Diagnostics Result Diagram: 12/25/1624412/25/16 024 X-Rays, CTs and MRIs PROCEDURE: CT ABDOMEN AND PELVIS WITH CONTRAST IMPRESSION: 1. 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 Approved by: Brynn Marques M.D. on 12/23/2016 at 8:48 PROCEDURE: X-RAY ACUTE ABDOMINAL SERIES IMPRESSION: Persistent small bowel obstructive pattern. Dictated by: Marcial YIN Interpreted: Brynn Marques MD on 12/23/2016 at 9:22 Transcribed by: JONATAN on 12/23/2016 at 9:23 Additional Diagnostics Most recent echocardiogram was 03/11/2014 -"EF was 55-60%. Left atrium was severely dilated. Right atrium was severely dilated. There was mild to moderate mitral regurg. There was mild tricuspid regurg. Assessment & Plan 89-year-old female patient with history of atrial fibrillation on Coumadin, hypertension, irritable bowel syndrome, arthritis presented to the ER with complaint of worsening abdominal pain. Admitted for acute bowel obstruction secondary to suspected colon cancer. 1. Suspected colon cancer,under workup -CT performed in the ER demonstrating small bowel obstruction secondary to concentric lesion in the ascending colon, suspicious for adenocarcinoma. Discussed results with patient and family and are aware it could represent a malignancy -CT abdomen and pelvis as above -Colonoscopy to be completed today.Dr Sanchez says he will consult surgery -reversed INR with FFPs for procedure 2. Acute bowel obstruction secondary to concentric lesion in the ascending colon, present on admission, resolving -Patient presented with worsening abdominal pain and nausea, which improved after bowel movements on 12/23/16. Patient previously seen by Dr. Cisneros of GI with plan for colonoscopy -NG tube placed -Dilaudid available for pain management -Colonoscopy scheduled for today. consider starting warfarin tomorrow if no plan for surgery . 3. Acute leukocytosis due to SBO, present on admission, improving -Patient had mild leukocytosis 11.5, neutrophils 70.0 initially. -UA pending -No clear etiology at this time -Have not started the patient on antibiotics 4. Chronic atrial fibrillation anticoagulated with Coumadin, present on admission, stable -Continue with home dose of verapamil -Last echo done in 2013 -Holding warfarin for colonoscopy. Will restart tomorrow if no plan for surgery on current admission 5. Chronic hypertension, stable, present on admission, ongoing -Continue with furosemide -Continue to monitor 6. Obstructive sleep apnea managed with CPAP, stable, present on admission, ongoing -Contact respiratory therapy for CPAP machine once patient no longer has NG tube in place 7. Restless leg syndrome, chronic, stable -Continue with home medications -Continue to monitor PCP: Gastroenterology: Dr. Cisneros Production Control Expert: Dr. Rascon CODE STATUS: Full code disposition:pending hospital course and GI recs VTE Prophylaxis: SCDs VTE Mechanical Devices: Intermittant Pneumatic CD Resuscitation Status: CPR: Attempt Resuscitation Attending Statement The patient was seen and examined together with Dr. Haque on 12/25/2016 and I agree with the history, exam and plan as outlined in the note above. Ethan Haque Dec 25, 2016 10:42 Ismael Vasquez MD Dec 25, 2016 15:18
[2016-12-25] MEDS ORDERED: fentaNYL-PF 50 mCg/mL 2 mL Inj IVPUSH PRN (10:45)
--- NOTE | 2016-12-25 11:12 | PCM.PHAPRO ---
Progress Warfarin Management by Pharmacy: -Indication: afib -Home Dose: warfarin 5mg on MoWeFr and 2.5mg aod -Inr Goal: 2-3 -Concurrent Anticoagulation: none -CHADSVASc Score: 4 -H/H 9.3/30.7 Plt 315 -Plan: pt had FFP in anticipation of colonoscopy today. Inr this morning was 1.85. called hospitalist to confirm if warfarin was to be resumed today or tomorrow. may begin this evening with dose of warfarin 2.5mg. serial inr's have been ordered Rosmery Tirado [facility] Dec 25, 2016 11:12
[2016-12-25] MEDS ORDERED: TPN Per Pharmacist XX ONE (15:45)
[2016-12-25] MEDS ORDERED: Sodium Chloride LOK Flush 10 mL Syringe IVFLUSH PRN ×2 (15:45)
--- NOTE | 2016-12-25 18:11 | NUR ---
PICC evaluation I and Debra Wills RN , IV therapy team looked and evaluated the patients arms for a vein large enough to support a picc line. Neither one of us could find a vein big enough to support a 5Fr catheter. The veins ranged from 50% to 54% in inside diameter. Shanice Strickland RN the patients nurse has been advised. She states she will contact Dr. Wilburn and inform him of our findings. Sudarshan London RN
--- NOTE | 2016-12-25 18:33 | CONS ---
[address] [address] CONSULTATION REPORT PATIENT: ERNESTINE ENGLISH : 1925 MR#: [id number] ADMIT: 12/23/2016 JOB ID: [id number] DATE OF SERVICE: 12/25/2016 CHIEF COMPLAINT/IDENTIFICATION: Dr. 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 HISTORY OF PRESENT ILLNESS: She presented to the emergency department on the complaining of increased abdominal pain. She was scheduled for a colonoscopy this week. She was admitted based on her CT scan that demonstrated a probable near obstructing colon cancer with a partial small bowel obstruction. She tolerated a clear liquid bowel prep and had a colonoscopy today which demonstrates probable colon cancer, biopsy pending. She and her family report that she has had progressive weight loss this year in the setting of recovering from two separate hip surgeries. Her feels that she has had increased abdominal bloating and abdominal discomfort for the past two years. PAST MEDICAL HISTORY: Bilateral hip fractures within the past six months both requiring surgery. She has never gotten back to her full level of activity which was quite high prior to this. She has had previous cholecystectomy, hysterectomy, bladder suspension and appendectomy. She has a history of recurrent UTIs, hypertension, hyperlipidemia, mitral regurgitation, restless leg syndrome and atrial fibrillation on chronic Coumadin. She also has sleep apnea requiring a CPAP at home. MEDICATIONS: 1. Acetaminophen. 2. Furosemide. 3. Pantoprazole. 4. Potassium. 5. Pramipexole for restless leg. 6. Verapamil. 7. Warfarin. 8. Vitamin D 3. ALLERGIES: No known allergies. SOCIAL HISTORY: The patient lives with her . She really is barely getting around with a walker these days since her hip surgeries. She is seen with her , her daughter who is a surgical nurse at another facility, and her son. She is not a smoker. She does not drink alcohol on a daily basis. FAMILY HISTORY: Negative for gastrointestinal cancer. REVIEW OF SYSTEMS: Per admission history and physical examination. PHYSICAL EXAMINATION: Very pleasant, alert, 89-year-old woman who appears younger than her stated age. Vital signs are recorded in the chart and are within normal limits. Heart sounds are irregularly irregular. Her abdomen is soft, with a fullness in the right upper quadrant. She has no evidence of groin adenopathy. LABORATORY DATA: Her hematocrit was 30 this morning, 34 on admission. White count was 11.5. Chemistries within normal limits except for a potassium of 2.9 this morning, repeat of 4.3 at 1:10. Her albumin is 2.5 currently, was 3.2 on admission. IMAGING: Abdominal CAT scan: Demonstrates a circumferential ascending colon mass consistent with primary colonic neoplasm but no evidence of metastatic disease. She has not had a chest x-ray in the past six months. IMPRESSION/PLAN: A relatively healthy, 89-year-old female with probable right colon cancer, near obstructing. Her albumin is low, representing her poor nutritional status. Given the fact that she is nearly completely obstructed, I think she should have her surgery this hospitalization. I discussed with the family the history and current viewpoint of the value of preoperative nutrition in a situation like this. I think it would be very reasonable to keep her in the hospital for a week or two of intensive nutritional therapy. As well, I think the option of early surgery after simply tuning her up over the next few days is a reasonable alternative; the family and the patient tend to want to move ahead in her best interest. We discussed the fact that I will be turning her care over to Dr. Caldwell and the final decision regarding timing of surgery and the value and amount of preoperative nutrition supplements will be left up to him and them. I will order TPN and Impact to start tonight. I will leave her on clear liquids until tomorrow morning.
--- NOTE | 2016-12-25 18:34 | NUR ---
Tele/PO intake/Pain Patient alert and oriented x3, up multiple times to BSC (daughter at bedside who is RN assisting with toileting), pure liquid yellow stool/urine mix. Tele Afib, 60s while sleeping up to 100s with BSC with PVC pairs. SPO2 on RA mid 90s, no reports of SOB, no n/v or abdominal pain, clear liquid diet started for dinner, ate approx 50% and tolerating well. Reported 5/10 cramping/spasm type pain from restless legs -- administered 0.5mg IV Dilaudid x2 -- patient reported significant relief. NG tube removed.
--- NOTE | 2016-12-25 19:47 | ENDO ---
[address] [address] ENDOSCOPY PROCEDURE PATIENT: ERNESTINE ENGLISH : 1925 MR#: [id number] ADMIT: 12/23/2016 JOB ID: [id number] DATE: 12/25/2016 PROCEDURE: 1. Colonoscopy with biopsy. 2. Hot snare polypectomy and Arabella ink tattoo placement. INDICATIONS: An 89-year-old female with obstructing lesion as identified by CT in the ascending colon. Acute obstructive symptoms have resolved. Colonoscopic interrogation is pursued. EQUIPMENT: [employer] H 180 AL. SEDATION: 3 mg Versed and 100 mcg fentanyl. COMPLICATIONS: None identified. BOWEL PREPARATION: Excellent distally. PROCEDURE INFORMATION: After the risks and benefits were explained, written and verbal informed consent was obtained. The patient was brought into the endoscopy suite and placed into the left lateral decubitus position. Sedation was achieved as above. A digital rectal examination accomplished. Moderate internal hemorrhoids noted. The scope was introduced into the rectum and advanced under direct visualization to the hepatic flexure. At that location we encountered an irregular ulcerated circumferential mass effect and could not advance the scope any further. Biopsy and Arabella ink tattoo were placed. The scope was then slowly withdrawn to carefully examine the mucosa for any defects or lesions. Multiple direct views were made through the dentate line for exclusion of pathology. The colon was decompressed. The scope removed from the patient who tolerated the procedure well. FINDINGS: There was an ulcerated, irregular mass lesion on the ascending colon side of the hepatic flexure. I could not navigate through this lesion into the cecum proper. A couple of biopsies were acquired for histopathologic purposes. We placed an approximately 1 mL Arabella ink tattoo just distal to the lesion in the proximal transverse colon right around the hepatic flexure. There was an approximately 1 cm polyp in the transverse colon that was removed with hot snare polypectomy. A portion of this polyp remained in situ after our initial snare and had to be removed with the Jumbo snare. After our efforts, all of the polyp appeared to have been excised. There was moderate diverticulosis in the left colon. No other significant pathology appreciated. ENDOSCOPIC DIAGNOSES: 1. Obstructing ascending colon mass lesion. 2. Transverse colon polyp. 3. Diverticulosis. 4. Hemorrhoids. RECOMMENDATIONS: 1. Await histopathology. 2. Surgical consultation. 3. Oncology consultation is additionally recommended. 4. The patient should be able to tolerate a smoothie consistency diet. I would perhaps, however, only advance to this diet from clear liquids at the discretion of the surgical service. It may be appropriate to continue holding her Coumadin and proceed with the surgery in the next day or two.
[2016-12-26] VITALS (9 sets, daily range): BP systolic 94–134; BP diastolic 52–83; PULSE 56–109; RESP 16–20; O2SAT 94–98
[2016-12-26 03:23] LABS: BASOPHILS % (AUTO) 0.3 % (0-3); EOSINOPHILS % (AUTO) 0.5 % (0-5); NEUTROPHILS % (AUTO) 70.8 % (40-74); Platelet Count 311 bil/L (150-400)
[2016-12-26 03:35] LABS: INR 2.22 ratio
--- NOTE | 2016-12-26 05:03 | NUR ---
Temp/O2 Pt had max temp of 38.2. Her room was very warm and she was covered in blankets. Attempted non pharmacologic therapies such as taking off blankets and cool cloths. When temp remained slightly elevated, called MD and got order for one time dose of PO acetaminophen. Pt did fall asleep before that dose was administered. Last set of vitals showed pt to be afebrile. SpO2 on RA when trying to sleep was high 80s. Placed pt on 2 L NC for sleep and she does have CPAP at home per report. Tolerated well and increased SpO2 to high 90s. Care ongoing
[2016-12-26] MEDS: Verapamil SR 180 mg ER12 Tablet PO SCH (08:18)
[2016-12-26] MEDS: HYDROmorphone 1 mg/mL Inj IVPUSH PRN ×3 (08:19→20:43)
--- NOTE | 2016-12-26 09:06 | PCM.PNSURG ---
Subjective Visit Information: Reason for Visit Bowel Obstruction/Afib With Rvr Surgery/Surgery Date Post-Op Day # Date of Admission: Dec 23, 2016 at 03:25 Hospital Day # Subjective: not able to get a PICC line in; no major abd pain, tolerated bowel prep via NGT ; INR 2.22 today Objective Objective Awake in bed Daughter in room Abd: mild distention but soft Vital Sign- Last 8 Hours Date Time Temp Pulse Resp B/P Pulse Ox O2 Delivery O2 Flow Rate FiO2 12/26/16 08:21 Supplement Oxygen 12/26/16 08:05 36.9 92 18 131/83 98 Nasal Cannula 2.00 12/26/16 04:03 37.1 93 20 112/79 97 Nasal Cannula 4.00 12/26/16 01:37 38.0 109 18 134/75 94 Nasal Cannula 2.00 Intake and Output- Last 8 Hour 12/26/16 Cumulative From/Thru 07:00 12/23/16 00:55 - 12/26/16 06:19 Intake Total 320 ml 4486 ml Output Total 300 ml 6600 ml Balance 20 ml -2114 ml Intake Oral 320 ml 1760 ml IV Total 2262 ml FFP 464 ml Output Urine Total 300 ml 3200 ml Urine/Stool Mix 2600 ml Gastric Drainage Total 800 ml # Voids 1 7 # Bowel Movements 0 11 Result Diagram: 12/26/16 0310 12/26/16 0310 Assessment & Plan Impression A fib on coumadin INR 2.22 this am R colon mass, likely CA Problems: Plan Discussed case with pt and her daughter Recommend po nutrition support with Impact Central line placement and start TPN Allow INR to correct down to normal range prior to operation sometime this week VTE Prophylaxis: SCDs Resuscitation Status: CPR: Attempt Resuscitation Jeremy Caldwell MD Dec 26, 2016 09:06
[2016-12-26] MEDS ORDERED: Sodium Chloride LOK Flush 10 mL Syringe IVFLUSH PRN ×2 (10:45)
--- NOTE | 2016-12-26 11:05 | NUR ---
NUTRITION ASSESSMENT: ASSESS: Pt is an 89yo F admitted for bowel obstruction. She is s/p colonoscopy that showed probable colon ca with partial small bowel obstruction. Pt is to start on TPN to help improve her nutritional status. She is currently on CL diet with Impact Recovery and Gelatein on all trays per Dr. Caldwell. PO has been good at 75-100%. Goal is to improve pt's nutritional status enough for surgery. PMHX: Afib, HTN, HLD, IBS LABS: Reviewed. Benzol Operator .40, Glu 115, Ca 8.2, Alb 2.7 MEDS: Reviewed. GI: 0 BM, new colon ca diagnosis. SKIN: Owen 16 CURRENT WTS: 58.5kg, BMI 21.5kg/m2. Family reporting progressive wt loss. Per chart review, wt has been stable x 1year. DIET: CL, PO 75-100% EST. NEEDS: colon ca, wt gain Kcals: 1780-2075kcal/day (30-35kcal/kg) Pro: 70-90g/day (1.2-1.5g/kg) Fluid: ~1500-1780mlday (25-30ml/kg) NUTRITION DIAGNOSIS: 1.) Inadequate oral intake related to altered GI function as evidence by current CL diet order and partial SBO. 2.) Increased nutrient needs related to new ca diagnosis as evidence by new colon ca NUTRITION INTERVENTION: 1.) Recommend start TPN at 150g Dex, 45g AA and 30g lipids to provide 1020kcal and 45g pro (~50% kcal and pro needs) 2.) Once tolerated recommend increase macronutrients to goal of 220g Dex, 70g AA and 45g lipids to provide 1480kcal and 70g pro (~80% kcal and 100% pro needs). TPN provides 80% kcal needs due to pt tolerating CL diet well at 75-100%. 3.) Adjust TPN goal macronutrients based on PO intake/diet order. 4.) Per Dr. Caldwell, Impact Recovery and Gelatein were added to all trays. MONITOR / EVAL: TPN start/tiffanie, labs, diet advance, wt, GI, PO intake, POC, nutrition status. Will continue to follow per high nutrition risk guidelines
--- NOTE | 2016-12-26 11:14 | PCM.CONPHA ---
Subjective Date of Service: Dec 26, 2016 TPN Reason for Pharmacy Consult: TPN Management Assessment/Plan Assessment/Plan A/ New TPN start. Electrolytes WNL, no glycemic concerns. P/ Substrates recommended by dietary are as follows; 150g dextrose, 45g AA and 30g lipids. Pharmacy will follow and adjust daily. Initial admixture to be hung today(12/26) @2100 : PARENTERAL NUTRITION ORDERS 1 - Standard Hang Time: 2100 Substrates Total kcal: 990 AMINO ACIDS 45 g DEXTROSE 150 g Total Volume (mL): 1000 LIPIDS 30 g Sterile Water for Injection QS mL To Infuse Over (hrs): 24 Total Volume 1000 mL At at a rate of (mL/hr): 42 Additives Sodium Chloride 50 mEq "typical" daily requirements Sodium Acetate 20 mEq Sodium 50-120mEq Potassium Chloride 40 mEq Potassium 60-120mEq Potassium Phosphate 10 mEq Phosphate 20-40mEq Calcium Gluconate 9 mEq Magnesium 8-32mEq Magnesium Sulfate 8 mEq Calcium 9-22mEq Acetate* 80-120mEq Chloride* 80-120mEq Regular Insulin units *Depending on acid-base status Famotidine mg Multivitamins 1 std dose Insulin Regimen Trace Elements 1 std dose none Thiamine mg Regular Low Intensity Subcut Folic Acid mg Regular Medium Intensity Subcut Ascorbic Acid mg Regular High Intensity Subcut Regular Insulin Infusion Alvarado Moreau Dec 26, 2016 11:14
--- NOTE | 2016-12-26 14:36 | DRSVH ---
PROCEDURE: X-RAY PICC LINE PLACEMENT BY NURSE ([id number]) INDICATIONS: need access for TPN COMPARISON: None. FINDINGS: PICC was placed by the intravenous therapy team from the right side. Fluoroscopic spot fi lm demonstrates tip projected over the lower SVC. IMPRESSION: Tip of PICC projected over the lower SVC . Dictated by: Marcial YIN Interpreted: Mckenzie Martini MD on 12/26/2016 at 14:35 Transcribed by: ANATOLIY on 12/26/2016 at 14:35 Approved by: Mckenzie Martini M.D. on 12/26/2016 at 16:04
[2016-12-26] MEDS ORDERED: Phytonadione (Adult) 10 MG in Dextrose 5%-Pha MIX 50 ML IV ONE (15:50)
--- NOTE | 2016-12-26 16:20 | NUR ---
Social Work Note: Continued Discharge Planning Data& Assessment: Per MD in morning rounds, pt may be started on TPN. SW met with pt and pt family at bedside to discuss discharge planning. Pt and pt family emphasized that pt will be returning home and not a SNF at time of discharge. Pt has had [facility] in the past and would like these services again. Referral sent to [facility], RN, [employer]. Pt and pt daughter deny any other needs at this time. SW to continue to follow. Plan: Anticipated discharge home with family support and [facility] RN, and [employer]. Pt and pt daughter deny any other needs at this time. SW to continue to follow. LUIS MANUEL Erickson
--- NOTE | 2016-12-26 18:51 | NUR ---
Tele/Respiratory/Bowel No reports of chest pain/pressure/discomfort. Tele AFIB 90s throughout shift. No reports of nausea or vomiting, patient had one episode of pure liquid light brown stool with urine mix, unable to obtain UA, NOC RN aware of need. No reports of SOB/dizziness at rest, patient on 2L NC during the day, SPO2 at 96-98%. Patient left for PICC insertion in OR, returned alert and oriented x3, in no apparent respiratory distress and denied SOB however SPO2 on 2L NC 89-90%, increased to 4LNC patient SPO2 now 96% on 4L NC. Vitamin K administered per MD orders.
--- NOTE | 2016-12-26 20:35 | PCM.PNMED ---
Subjective Date of Service Dec 26, 2016 Subjective Overnight: Patient had a colonoscopy yesterday. She had a temp of 38.2, which normalized with non pharmacologic therapies such as taking off blankets and cool cloths. PO acetaminophen was not administered because patient fell asleep. She has been afebrile since. She was placed on 2 L NC for sleep and tolerated well. She reports to be home CPAP at 2L. Tele afib 90s. Today: Patient reports to feel weak from the bowel prep yesterday, but has no pain complaint. She had one pure liquid light brown stool with urine mix this morning. NOC RN aware of need. No reports of SOB/dizziness at rest, patient on 2L NC during the day, SPO2 at 96-98%. Successful PICC insertion. INR went up to 2.22 today although warfarin has been held. Exam Vital Signs Vital Sign - Last Date Time Temp Pulse Resp B/P Pulse Ox O2 Delivery O2 Flow Rate FiO2 12/26/16 19:59 36.8 76 16 104/60 95 Nasal Cannula 3.00 Intake and Output 12/25/16 12/25/16 12/26/16 Cumulative From/Thru 14:59 22:59 06:59 12/23/16 00:55 - 12/26/16 06:19 Intake Total 1025 ml 320 ml 4486 ml Output Total 2700 ml 300 ml 6600 ml Balance -1675 ml 20 ml -2114 ml Intake Oral 520 ml 320 ml 1760 ml IV Total 505 ml 2262 ml FFP 464 ml Output Urine Total 100 ml 300 ml 3200 ml Urine/Stool Mix 2600 ml 2600 ml Gastric Drainage Total 800 ml # Voids 1 1 7 # Bowel Movements 0 11 Exam General: Alert, Oriented X3, Cooperative, No Acute Distress Head: Normocephalic, atraumatic. External ears normal. NG tube in place Eyes: EOMI. Anicteric sclerae. Mouth: Mouth Normal, Mucous Membranes Moist/[place] Neck: Neck supple with full range of motion. Chest & Lungs: Clear to auscultation bilaterally with no crackles, wheezes, or rhonchi. Cardiovascular: Irregular rhythm, systolic murmur present. Abdomen: Soft, Non-tender, Non-distended, No masses, Normoactive bowel tones. Musculoskeletal: Normal Range of Motion Extremities: Mild edema Neurological: Grossly Neurologically Intact, Normal Speech IVs and Medications Medications Reviewed: Medications were reviewed in detail Lab and Diagnostics Result Diagram: 12/26/1630912/26/16309 X-Rays, CTs and MRIs PROCEDURE: CT ABDOMEN AND PELVIS WITH CONTRAST IMPRESSION: 1. 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 Approved by: Brynn Marques M.D. on 12/23/2016 at 8:48 PROCEDURE: X-RAY ACUTE ABDOMINAL SERIES IMPRESSION: Persistent small bowel obstructive pattern. Dictated by: Marcial Griffith RRSoham Interpreted: Brynn Marques MD on 12/23/2016 at 9:22 Transcribed by: JONATAN on 12/23/2016 at 9:23 Additional Diagnostics Most recent echocardiogram was 03/11/2014 -"EF was 55-60%. Left atrium was severely dilated. Right atrium was severely dilated. There was mild to moderate mitral regurg. There was mild tricuspid regurg. Assessment & Plan 89-year-old female patient with history of atrial fibrillation on Coumadin, hypertension, irritable bowel syndrome, arthritis presented to the ER with complaint of worsening abdominal pain. Admitted for acute bowel obstruction secondary to suspected colon cancer. 1. Suspected colon cancer,under workup -CT performed in the ER demonstrating small bowel obstruction secondary to concentric lesion in the ascending colon, suspicious for adenocarcinoma. Discussed results with patient and family and are aware it could represent a malignancy -CT abdomen and pelvis as above -Colonoscopy was done yesterday 12/25. Biopsy pending. -2 units of FFPs were given prior to the colonoscopy. Will try to reverse INR with Vitamin K 10mg IV. -Check INR tomorrow -Dr. Caldwell (surgery) saw the patient and recommended TPN. No surgery until INR down to normal range. 2. Acute bowel obstruction secondary to concentric lesion in the ascending colon, present on admission, resolving -Patient presented with worsening abdominal pain and nausea, which improved after bowel movements on 12/23/16. Patient previously seen by Dr. Cisneros of GI with plan for colonoscopy -NG tube was D/C yesterday. -Dilaudid available for pain management -Surgical plan as above -PICC line placed today. Will start TPN at 2100 tonight. 3. Acute leukocytosis due to SBO, present on admission, active. -Patient had mild leukocytosis 11.5, neutrophils 70.0 initially. Today WBC of 12 and neutrophils 70.8. -Highest temp 38.1 last night -No clear etiology at this time. -Will continue to monitor signs and symptoms of infection. Will consider starting antibiotics if patient becomes febrile. 4. Chronic atrial fibrillation anticoagulated with Coumadin, present on admission, stable -Continue with home dose of verapamil -Last echo done in 2013 -INR is therapeutic, however, for surgical purpose, will hold warfarin until after the surgery. -Continue to monitor INR. 5. Chronic hypertension, stable, present on admission, ongoing -Continue with furosemide -Continue to monitor 6. Obstructive sleep apnea managed with CPAP, stable, present on admission, ongoing -O2 supplement. Will ask family to bring CPAP machine tomorrow. 7. Restless leg syndrome, chronic, active. -Patient reports no improvement with home dose Pramipexole, but improvement on Dilaudid. -Increase Pramipexole to 0.5mg QHS and 0.125-0.25 PRN during the day. -Continue to monitor PCP: Gastroenterology: Dr. Cisneros [employer] Craftsman: Dr. Rascon CODE STATUS: Full code disposition: Patient and daughters are anxious for the surgery. Risk of bleeding discussed with them, and they agreed to the plan of waiting for a normalized INR. Pending hospital course and Surgery recs Pain Evaluation: Adequate Pain Control VTE Prophylaxis: SCDs VTE Mechanical Devices: Intermittant Pneumatic CD Resuscitation Status: CPR: Attempt Resuscitation Attending Statement The patient was seen and examined together with Dr. Veronica on 12/26/2016 and I agree with the history, exam and plan as outlined in the note above. . Jairo Veronica DO Dec 26, 2016 20:35 Alvarado Mcqueen MD Dec 27, 2016 07:39
[2016-12-26] MEDS: TPN Per Pharmacist XX SCH (21:00)
[2016-12-26] MEDS: Total Parenteral Nutrition 1 BAG IV SCH (21:00)
[2016-12-27] VITALS (7 sets, daily range): BP systolic 94–151; BP diastolic 49–87; PULSE 62–108; RESP 19–20; O2SAT 93–97
--- NOTE | 2016-12-27 00:50 | PROG NOTE ---
[address] [address] PROGRESS NOTE PATIENT: ERNESTINE ENGLISH : 1925 MR#: [id number] ADMIT: 12/23/2016 JOB ID: [id number] DATE: 12/26/2016 SUBJECTIVE: No events overnight. The patient was ultimately able to get a PICC line in the right upper extremity. She is on a liquid diet. The plan is to start her on some temporary TPN to boost nutrition, hold her Coumadin, and plan for surgery before she leaves the hospital. No obstructive symptoms at the moment. OBJECTIVE: Vitals are stable. The patient was in good spirits. Conversational. ASSESSMENT AND PLAN: An 89-year-old female with obstructing ascending colon lesion, pathology is pending, but this will need to be operated on. I will sign off for now and defer management to Oncology and General Surgery.
[2016-12-27 05:00] LABS: BASOPHILS % (AUTO) 0.3 % (0-3); EOSINOPHILS % (AUTO) 2.8 % (0-5); MONOCYTES % (AUTO) 10.3 % (4-12); Mean Corpuscular Volume 86.2 fL (81-100); NEUTROPHILS % (AUTO) 59.8 % (40-74); Platelet Count 327 bil/L (150-400)
[2016-12-27 05:11] LABS: INR 1.36 ratio
--- NOTE | 2016-12-27 06:39 | NUR ---
TPN / Tele TPN started 2117 @ 41.7 Ml/hr Urine sample sent to lab , Tele A-Fib 65. restful sleep most of the night except when disturbed for care. A&O x3 , using call light sparingly.
[2016-12-27] MEDS: TPN Per Pharmacist XX SCH (08:30)
[2016-12-27] MEDS: Verapamil SR 180 mg ER12 Tablet PO SCH (08:44)
[2016-12-27] MEDS ORDERED: Heparin 5,000 Unit/mL Inj IVPUSH ONE (09:10)
[2016-12-27] MEDS ORDERED: Heparin 25K Unit/500mL 0.45 NS 25,000 UNIT in IV Premix 1 EACH IV SCH (09:10)
--- NOTE | 2016-12-27 10:01 | PCM.PNMED ---
Subjective Date of Service Dec 27, 2016 Subjective Overnight: no acute event. TPN started at 2117. Patient had restful sleep most of the night with no complaint. Had another bowel movement. She had 10mg of Vitamin K yesterday and her INR went down to 1.36 this morning. Today: Patient reports to feel well, except not much appetite. She is eager to get out of the bed and move around. She denies fever, chills, abdominal pain, nausea, vomiting, or headache. Exam Vital Signs Vital Sign - Last Date Time Temp Pulse Resp B/P Pulse Ox O2 Delivery O2 Flow Rate FiO2 12/27/16 07:56 37.3 108 20 144/87 97 Nasal Cannula 2.50 Intake and Output 12/26/16 12/26/16 12/27/16 Cumulative From/Thru 15:00 23:00 07:00 12/23/16 00:55 - 12/27/16 06:26 Intake Total 1142 ml 833 ml 6461 ml Output Total 750 ml 650 ml 8000 ml Balance 392 ml 183 ml -1539 ml Intake Oral 1040 ml 500 ml 3300 ml IV Total 102 ml 333 ml 2697 ml FFP 464 ml Output Urine Total 550 ml 650 ml 4400 ml Stool Total 200 ml 200 ml Urine/Stool Mix 2600 ml Gastric Drainage Total 800 ml # Voids 1 3 11 # Bowel Movements 1 1 13 Exam General: Alert, Oriented X3, Cooperative, No Acute Distress Head: Normocephalic, atraumatic. External ears normal. NG tube in place Eyes: EOMI. Anicteric sclerae. Mouth: Mouth Normal, Mucous Membranes Moist/[place] Neck: Neck supple with full range of motion. Chest & Lungs: Mild rales at the bilaterally bases. No wheezes, or rhonchi. Cardiovascular: Irregular rhythm, systolic murmur present. Abdomen: Soft, Non-tender, Non-distended, No masses, Normoactive bowel tones. Musculoskeletal: Normal Range of Motion Extremities: No edema Neurological: Grossly Neurologically Intact, Normal Speech IVs and Medications Medications Reviewed: Medications were reviewed in detail Lab and Diagnostics Result Diagram: 12/27/1642912/27/16429 X-Rays, CTs and MRIs PROCEDURE: CT ABDOMEN AND PELVIS WITH CONTRAST IMPRESSION: 1. 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 Approved by: Brynn Marques M.D. on 12/23/2016 at 8:48 PROCEDURE: X-RAY ACUTE ABDOMINAL SERIES IMPRESSION: Persistent small bowel obstructive pattern. Dictated by: Marcial Griffith [facility] Interpreted: Brynn Marques MD on 12/23/2016 at 9:22 Transcribed by: JONATAN on 12/23/2016 at 9:23 Additional Diagnostics Most recent echocardiogram was 03/11/2014 -"EF was 55-60%. Left atrium was severely dilated. Right atrium was severely dilated. There was mild to moderate mitral regurg. There was mild tricuspid regurg. Assessment & Plan 89-year-old female patient with history of atrial fibrillation on Coumadin, hypertension, irritable bowel syndrome, arthritis presented to the ER with complaint of worsening abdominal pain. Admitted for acute bowel obstruction secondary to suspected colon cancer. 1. Suspected colon cancer,under workup -CT performed in the ER demonstrating small bowel obstruction secondary to concentric lesion in the ascending colon, suspicious for adenocarcinoma. Discussed results with patient and family and are aware it could represent a malignancy -CT abdomen and pelvis as above -Colonoscopy was done yesterday 12/25. Biopsy pending. -2 units of FFPs were given prior to the colonoscopy. One dose of Vitamin K 10mg IV was given on 12/26. -IRN is 1.36 today. Continue to follow INR. -GI signed off. Followed by general surgery. -Will plan on lap R jenaro on morning 12/29 per surgery. 2. Acute bowel obstruction secondary to concentric lesion in the ascending colon, present on admission, resolving -Patient presented with worsening abdominal pain and nausea, which improved after bowel movements on 12/23/16. Patient previously seen by Dr. Cisneros of GI with plan for colonoscopy -NG tube was D/C on 12/25. -Dilaudid available for pain management -Surgical plan as above -PICC line placed 12/26. TPN started at 2100 on 12/26. 3. Acute leukocytosis due to SBO, present on admission, improved. -Patient had mild leukocytosis 11.5, neutrophils 70.0 initially. Today WBC of 11.5 and neutrophils 59.8. -No clear etiology at this time. -Will continue to monitor signs and symptoms of infection. Will consider starting antibiotics if patient becomes febrile. 4. Chronic atrial fibrillation anticoagulated with Coumadin, present on admission, stable -Continue with home dose of verapamil -Last echo done in 2013 -For surgical purpose, will hold warfarin until after the surgery. -Continue to monitor INR. 5. Chronic hypertension, stable, present on admission, ongoing -Continue with furosemide -Continue to monitor 6. Obstructive sleep apnea managed with CPAP, stable, present on admission, ongoing -On O2 supplement. 7. Restless leg syndrome, chronic, active. -Patient reports no improvement with home dose Pramipexole, but improvement on Dilaudid. -Pramipexole was increased to 0.5mg QHS and 0.125-0.25 PRN during the day. -Continue to monitor PCP: Gastroenterology: Dr. Cisneros Baggage Screener: Dr. Rascon CODE STATUS: Full code disposition: Patient and daughters are anxious for the surgery. Risk of bleeding discussed with them, and they agreed to the plan of waiting for a normalized INR. Pending hospital course and Surgery recs Pain Evaluation: Adequate Pain Control VTE Prophylaxis: SCDs VTE Mechanical Devices: Intermittant Pneumatic CD Resuscitation Status: CPR: Attempt Resuscitation Attending Statement The patient was seen and examined together with Dr. Veronica on 12/27/2016 and I agree with the history, exam and plan as outlined in the note above. . Jairo Veronica DO Dec 27, 2016 10:01 Alvarado Mcqueen MD Dec 29, 2016 17:32
--- NOTE | 2016-12-27 10:12 | PCM.PNSURG ---
Subjective Visit Information: Reason for Visit Bowel Obstruction/Afib With Rvr Surgery/Surgery Date Post-Op Day # Date of Admission: Dec 23, 2016 at 03:25 Hospital Day # Subjective: tolerated clears, TPN started last night, INR down to normal this am Objective Objective Awake in bed family in room Abd: soft Vital Sign- Last 8 Hours Date Time Temp Pulse Resp B/P Pulse Ox O2 Delivery O2 Flow Rate FiO2 12/27/16 07:56 37.3 108 20 144/87 97 Nasal Cannula 2.50 12/27/16 04:46 36.7 104 20 151/87 97 Nasal Cannula 2.50 Intake and Output- Last 8 Hour 12/27/16 Cumulative From/Thru 07:00 12/23/16 00:55 - 12/27/16 06:26 Intake Total 833 ml 6461 ml Output Total 650 ml 8000 ml Balance 183 ml -1539 ml Intake Oral 500 ml 3300 ml IV Total 333 ml 2697 ml FFP 464 ml Output Urine Total 650 ml 4400 ml Stool Total 200 ml Urine/Stool Mix 2600 ml Gastric Drainage Total 800 ml # Voids 3 11 # Bowel Movements 1 13 Result Diagram: 12/27/16 0430 12/27/16 0430 Assessment & Plan Impression R colon mass Malnutrition Problems: Plan Continue pre-op nutritional support Advance to full liquid and no further Will plan on lap assisted R jenaro on morning VTE Prophylaxis: SCDs Resuscitation Status: CPR: Attempt Resuscitation Jeremy Caldwell MD Dec 27, 2016 10:12
[2016-12-27 10:43] LABS: Phosphorus 2.5 mg/dL (2.5-4.9)
--- NOTE | 2016-12-27 10:58 | PCM.PHAPRO ---
Progress Date of Service: Dec 27, 2016 TPN A/ Electrolytes WNL. P/ Keep macros the same per dietary and I increased the sodium content in the TPN slightly, otherwise the same as yesterday. PARENTERAL NUTRITION ORDERS 2 27-Dec-16 Standard Hang Time: 2100 Substrates Total kcal: 990 AMINO ACIDS 45 g DEXTROSE 150 g Total Volume (mL): 1000 LIPIDS 30 g Sterile Water for Injection QS mL To Infuse Over (hrs): 24 Total Volume 1000 mL At at a rate of (mL/hr): 42 Additives Sodium Chloride 70 mEq "typical" daily requirements Sodium Acetate 30 mEq Sodium 50-120mEq Potassium Chloride 40 mEq Potassium 60-120mEq Potassium Phosphate 10 mEq Phosphate 20-40mEq Calcium Gluconate 9 mEq Magnesium 8-32mEq Magnesium Sulfate 8 mEq Calcium 9-22mEq Acetate* 80-120mEq Chloride* 80-120mEq Regular Insulin units *Depending on acid-base status Famotidine mg Multivitamins 1 std dose Insulin Regimen Trace Elements 1 std dose none Thiamine mg Regular Low Intensity Subcut Folic Acid mg Regular Medium Intensity Subcut Ascorbic Acid mg Regular High Intensity Subcut Alvarado Moreau Dec 27, 2016 10:58
--- NOTE | 2016-12-27 11:08 | NUR ---
NUTRITION FOLLOW-UP: ASSESS: Pt is an 89yo F admitted for bowel obstruction. She is s/p colonoscopy that showed probable colon ca with partial small bowel obstruction. TPN was started 12/26. Tolerating well so far. Pt is to have colectomy in next day or two. Continues to tolerate CL diet with Impact Recovery and Gelatein on all trays per Dr. Caldwell at 75-100% of all trays. PMHX: Afib, HTN, HLD, IBS LABS: Reviewed. Counseling Department Chair .38, Glu 113, Alb 2.9. Mg 2.0, phos 2.5 MEDS: Reviewed. GI: BMx1 12/27 SKIN: Owen 16 CURRENT WTS: 59.9kg, BMI 22.0kg/m2. Admit wt 57.6kg Family reporting progressive wt loss. Per chart review, wt has been stable x 1year. DIET: CL, PO 75-100% EST. NEEDS: colon ca, wt gain Kcals: 1780-2075kcal/day (30-35kcal/kg) Pro: 70-90g/day (1.2-1.5g/kg) Fluid: ~1500-1780mlday (25-30ml/kg) NUTRITION DIAGNOSIS: 1.) Inadequate oral intake related to altered GI function as evidence by current CL diet order and partial SBO. --IMPROVING 2.) Increased nutrient needs related to altered GI function as evidence by new colon ca diagnosis and colectomy surgery soon.--PERSISTS NUTRITION INTERVENTION: 1.) Recommend continue current TPN at 150g Dex, 45g AA and 30g lipids to provide 1020kcal and 45g pro (~50% kcal and pro needs)--Pharmacy aware. 2.) Once tolerated recommend increase macronutrients to goal of 220g Dex, 70g AA and 45g lipids to provide 1480kcal and 70g pro (~80% kcal and 100% pro needs). TPN provides 80% kcal needs due to pt tolerating CL diet well at 75-100%. 3.) Adjust TPN goal macronutrients based on PO intake/diet order. 4.) Per Dr. Caldwell, continue Impact Recovery and Gelatein to all trays. MONITOR / EVAL: TPN tiffanie/advance, labs, diet advance, wt, GI, PO intake, POC, nutrition status. Will continue to follow per high nutrition risk guidelines
[2016-12-27] MEDS ORDERED: Potassium Chloride 20 mEq SR Tablet PO ONE (11:45)
[2016-12-27] MEDS: HYDROmorphone 1 mg/mL Inj IVPUSH PRN ×2 (12:57→20:26)
[2016-12-27] MEDS: Heparin 5,000 Unit/mL Inj IVPUSH PRN (17:29)
--- NOTE | 2016-12-27 18:28 | NUR ---
Afib/Activity Cardiac: Pt denies CP, Afib 90s-100s, Cardiac heparin gtt started this AM. Resp: Pt denies SOB, SPO2 97% on RA. Family is very interested in getting pt up and ambulating to keep lungs clear. Pt ambulated with staff in the hallways, up in chair for lunch. GI/: No reports of n/v, mild LLQ abdominal pain with movement or palpation. Neuro: Alert and oriented x3, GUERRERO, reports full sensation -- generalized weakness. Pt gets PRN Dilaudid for restless leg, only given once this shift.
[2016-12-27] MEDS: Total Parenteral Nutrition 1 BAG IV SCH (21:35)
[2016-12-28] VITALS (7 sets, daily range): BP systolic 98–148; BP diastolic 56–84; PULSE 69–108; RESP 16–19; O2SAT 92–96
[2016-12-28 03:47] LABS: BASOPHILS % (AUTO) 0.3 % (0-3); EOSINOPHILS % (AUTO) 3.3 % (0-5); MONOCYTES % (AUTO) 12.9 % (4-12); Mean Corpuscular Hemoglobin 25.9 pg (27.0-35.0); NEUTROPHILS % (AUTO) 61.3 % (40-74); Platelet Count 296 bil/L (150-400)
[2016-12-28 04:00] LABS: INR 1.16 ratio
[2016-12-28] MEDS: Heparin 5,000 Unit/mL Inj IVPUSH PRN ×2 (05:20→10:24)
--- NOTE | 2016-12-28 06:30 | NUR ---
Heparin gtt/Activity/restless legs Heparin gtt running at 925 units/hr per protocol, no s/sx of bleeding noted. Pt up to BS for urination and tolerating well. Pt had one episode of restless legs and administered .5 mg of PRN Dilaudid and effective, no further complaints of restless legs. VSS and Tele Afib 60-70's
--- NOTE | 2016-12-28 08:22 | PCM.CONPHA ---
Subjective Date of Service: Dec 28, 2016 TPN Reason for Pharmacy Consult: TPN Management Objective Vital Signs Date Time Temp Pulse Resp B/P Pulse Ox O2 Delivery O2 Flow Rate FiO2 12/28/16 07:22 37.4 108 18 148/84 95 Nasal Cannula 1.00 12/28/16 04:09 93 12/28/16 03:01 37.1 106 19 129/78 92 Nasal Cannula 1.00 12/27/16 23:29 37.2 72 19 119/71 97 Nasal Cannula 1.00 12/27/16 21:36 Supplement Oxygen 12/27/16 20:22 37.0 77 20 113/63 97 Nasal Cannula 1.00 12/27/16 15:57 36.8 62 20 94/49 95 Nasal Cannula 2.50 12/27/16 12:04 36.8 75 20 105/55 93 Nasal Cannula 2.50 12/27/16 11:03 101 12/27/16 10:35 Supplement Oxygen Intake and Output 12/26/16 12/27/16 12/28/16 00:00 00:00 00:00 Intake Total 1489 ml 1462 ml 2020 ml Output Total 3500 ml 1050 ml 770 ml Balance -2011 ml 412 ml 1250 ml Weight (Kilograms): 59.900 Height (Feet): 5 Height (Inches): 5.00 Test 12/23/16 01:11 12/23/16 06:05 12/27/16 04:30 12/28/16 03:30 Lactic Acid Level 1.1mmol/L (0.4-2.0) Troponin T 0.010ug/L (0.0-0.011) Lipase 21U/L (13-60) Carcinoembryonic Antigen 2.6ng/mL (0.0-4.7) Hold Urine Received (Received) Phosphorus Level 2.5mg/dL (2.5-4.9) Magnesium Level 2.0mg/dL (1.6-2.6) White Blood Count 10.3th/mm3 (3.8-10.1) Red Blood Count 3.40mil/mm3 (3.90-5.20) Hemoglobin 8.8g/dL (12.0-15.6) Hematocrit 28.9% (35.0-46.0) Mean Corpuscular Volume 85.0fL (81-100) Mean Corpuscular Hemoglobin 25.9pg (27.0-35.0) Mean Corpuscular Hemoglobin Concent 30.4% (32.0-37.0) Red Cell Distribution Width 14.6% (12.3-15.4) Platelet Count 296bil/L (150-400) Neutrophils (%) (Auto) 61.3% (40-74) Lymphocytes (%) (Auto) 21.8% (14-46) Monocytes (%) (Auto) 12.9% (4-12) Eosinophils (%) (Auto) 3.3% (0-5) Basophils (%) (Auto) 0.3% (0-3) Prothrombin Time 12.4sec (8.1-12.5) Prothromb Time International Ratio 1.16ratio Activated Partial Thromboplast Time 49.2sec (22.8-33.0) Sodium Level 139mEq/L (134-144) Potassium Level 4.4mEq/L (3.5-5.2) Chloride Level 105mEq/L (97-108) Carbon Dioxide Level 25mmol/L (18-29) Blood Urea Nitrogen 28mg/dL (8-27) Creatinine 0.36mg/dL (0.57-1.00) Estimat Glomerular Filtration Rate 243mL/min (>59) Glucose Level 108mg/dL (60-99) Calcium Level 8.4mg/dL (8.5-10.1) Total Bilirubin 0.4mg/dL (0.0-1.2) Aspartate Amino Transf (AST/SGOT) 14U/L (0-50) Alanine Aminotransferase (ALT/SGPT) 9U/L (0-32) Alkaline Phosphatase 77U/L (25-165) Total Protein 5.2g/dL (6.4-8.4) Albumin 2.6g/dL (3.4-5.0) Assessment/Plan Assessment/Plan Assessment: * Patient is needing TPN management for diet supplementation. * Patient received TPN #2 on 12/27/16 at 2100. * Patient's BUN is slightly above the normal range at 28 mg/dL, but per the sales office manager, the patient is eating normally and the TPN is for diet supplementation in anticipation of colon surgery. Plan: * Patient will be started on TPN #3 on 12/28/16 at 2100 which will contain the following: PARENTERAL NUTRITION ORDERS 3 28-Dec-16 Standard Hang Time: 2100 Substrates Total kcal: 990 AMINO ACIDS 45 g DEXTROSE 150 g Total Volume (mL): 1000 LIPIDS 30 g Sterile Water for Injection QS mL To Infuse Over (hrs): 24 Total Volume 1000 mL At at a rate of (mL/hr): 42 Additives Sodium Chloride 70 mEq "typical" daily requirements Sodium Acetate 30 mEq Sodium 50-120mEq Potassium Chloride 40 mEq Potassium 60-120mEq Potassium Phosphate 10 mEq Phosphate 20-40mEq Calcium Gluconate 9 mEq Magnesium 8-32mEq Magnesium Sulfate 8 mEq Calcium 9-22mEq Acetate* 80-120mEq Chloride* 80-120mEq Regular Insulin units *Depending on acid-base status Famotidine mg Multivitamins 1 std dose Insulin Regimen Trace Elements 1 std dose none Thiamine mg Regular Low Intensity Subcut Folic Acid mg Regular Medium Intensity Subcut Ascorbic Acid mg Regular High Intensity Subcut Regular Insulin Infusion Other: * No changes from TPN #2 * BUN should be watched closely over the next couple of days. If the BUN continues to increase, the amino acid content will need to be decreased. * Will continue to follow. Allen Warren Dec 28, 2016 08:22
[2016-12-28] MEDS: TPN Per Pharmacist XX SCH (08:30)
[2016-12-28] MEDS: Verapamil SR 180 mg ER12 Tablet PO SCH (09:00)
--- NOTE | 2016-12-28 09:21 | NUR ---
NUTRITION FOLLOW-UP: ASSESS: Pt is an 89yo F admitted for bowel obstruction. She is s/p colonoscopy that showed probable colon ca with partial small bowel obstruction. Plan is for pt to undergo colectomy. TPN was started 12/26 as supplemental nutrition to help improve nutrition status prior to surgery. Tolerating well. Pt's BUN has increased today. Pharmacy is aware. Will continue to monitor lab trends and possible need to decrease AA. Pt's diet was advanced to FL yesterday per surgery. She continues to tolerate PO well at ~75% of most meals. PMHX: Afib, HTN, HLD, IBS LABS: Reviewed. Bun 28, Document Photographer .36, Glu 108, Ca 8.4, Alb 2.6 MEDS: Reviewed. GI: BMx2 12/27 SKIN: Owen 16 CURRENT WTS: 59.9kg, BMI 22.0kg/m2. Admit wt 57.6kg Family reporting progressive wt loss. Per chart review, wt has been stable x 1year. DIET: FL, PO 75% EST. NEEDS: colon ca, wt gain Kcals: 1780-2075kcal/day (30-35kcal/kg) Pro: 70-90g/day (1.2-1.5g/kg) Fluid: ~1500-1780mlday (25-30ml/kg) NUTRITION DIAGNOSIS: 1.) Inadequate oral intake related to altered GI function as evidence by current CL diet order and partial SBO. --IMPROVING 2.) Increased nutrient needs related to altered GI function as evidence by new colon ca diagnosis and colectomy surgery soon.--PERSISTS NUTRITION INTERVENTION: 1.) Recommend continue current TPN at 150g Dex, 45g AA and 30g lipids to provide 1020kcal and 45g pro (~50% kcal and pro needs)--Pharmacy aware. 2.) If pt's BUN continues to be elevated, recommend decrease pt's AA to 35g. 3.) Per Dr. Caldwell, continue Impact Recovery and Gelatein to all trays. MONITOR / EVAL: TPN tiffanie/advance, labs, diet advance, wt, GI, PO intake, POC, nutrition status. Will continue to follow per high nutrition risk guidelines Addendum: 12/29/16 at [address] Pt having surgery today. Continuing current TPN today. Pt's BUN improved to 24 today. Will monitor pt's nutrition status post-op. If pt needs to be NPO, recommend increasing pt's TPN to meet 100% of estimated needs (265g Dex, 85g AA and 55g lipids to provide 1790kcal and 85g pro). Will continue to monitor per high nutrition risk guidelines
--- NOTE | 2016-12-28 10:22 | PCM.PNSURG ---
Subjective Date of Service: Dec 28, 2016 Visit Information: Reason for Visit: Bowel Obstruction/Afib With Rvr Date of Admission: Dec 23, 2016 at 03:25 Hospital Day #5 Subjective: Patient is doing well this morning, pain is well controlled. She is ambulating and voiding without difficultly and tolerating liquid diet. Last bowel movement was this morning. Of note, she reports increased urinary frequency and a cough productive of clear sputum. She denies dysuria, hematuria, shortness of breath, chest pain, fever or chills. Postop General: No Shortness of Breath, No Chest Pain Gastrointestinal: Tolerating Oral Feedings, No N/V, Passing Stool Pain Management: IV Push Postop Activity: Ambulating Independently, Ambulating in Room Only Objective Vital Sign- Last 8 Hours Date Time Temp Pulse Resp B/P Pulse Ox O2 Delivery O2 Flow Rate FiO2 12/28/16 07:22 37.4 108 18 148/84 95 Nasal Cannula 1.00 12/28/16 04:09 93 12/28/16 03:01 37.1 106 19 129/78 92 Nasal Cannula 1.00 Intake and Output- Last 8 Hour 12/28/16 Cumulative From/Thru 07:00 12/23/16 00:55 - 12/28/16 06:46 Intake Total 886 ml 8534 ml Output Total 800 ml 8920 ml Balance 86 ml -386 ml Intake Oral 200 ml 4100 ml IV Total 201 ml 3485 ml TPN/PPN 485 ml 485 ml FFP 464 ml Output Urine Total 800 ml 5320 ml Stool Total 200 ml Urine/Stool Mix 2600 ml Gastric Drainage Total 800 ml # Voids 11 # Bowel Movements 0 14 General: Alert, Oriented X3 Lungs: Clear to Auscultation Heart: Exam Unremarkable Abdomen: Soft, Non-tender, Non-distended, Normoactive bowel tones Extremities: Distal Pulses Palpable, Warm, Thigh&Calf Soft/Nontender Neuro: Grossly Neurologically Intact Result Diagram: 12/28/16 03312/28/16 033 Lab & Micro Results: Laboratory Tests Test 12/27/16 16:44 12/27/16 21:19 12/28/16 03:30 Activated Partial Thromboplast Time 44.3sec (22.8-33.0) 51.6sec (22.8-33.0) 49.2sec (22.8-33.0) White Blood Count 10.3th/mm3 (3.8-10.1) Red Blood Count 3.40mil/mm3 (3.90-5.20) Hemoglobin 8.8g/dL (12.0-15.6) Hematocrit 28.9% (35.0-46.0) Mean Corpuscular Volume 85.0fL (81-100) Mean Corpuscular Hemoglobin 25.9pg (27.0-35.0) Mean Corpuscular Hemoglobin Concent 30.4% (32.0-37.0) Red Cell Distribution Width 14.6% (12.3-15.4) Platelet Count 296bil/L (150-400) Neutrophils (%) (Auto) 61.3% (40-74) Lymphocytes (%) (Auto) 21.8% (14-46) Monocytes (%) (Auto) 12.9% (4-12) Eosinophils (%) (Auto) 3.3% (0-5) Basophils (%) (Auto) 0.3% (0-3) Prothrombin Time 12.4sec (8.1-12.5) Prothromb Time International Ratio 1.16ratio Sodium Level 139mEq/L (134-144) Potassium Level 4.4mEq/L (3.5-5.2) Chloride Level 105mEq/L (97-108) Carbon Dioxide Level 25mmol/L (18-29) Blood Urea Nitrogen 28mg/dL (8-27) Creatinine 0.36mg/dL (0.57-1.00) Estimat Glomerular Filtration Rate 243mL/min (>59) Glucose Level 108mg/dL (60-99) Calcium Level 8.4mg/dL (8.5-10.1) Total Bilirubin 0.4mg/dL (0.0-1.2) Aspartate Amino Transf (AST/SGOT) 14U/L (0-50) Alanine Aminotransferase (ALT/SGPT) 9U/L (0-32) Alkaline Phosphatase 77U/L (25-165) Total Protein 5.2g/dL (6.4-8.4) Albumin 2.6g/dL (3.4-5.0) Diagnostics: CT ABDOMEN AND PELVIS WITH CONTRAST (12/28/16) FINDINGS: ABDOMEN: -Lung bases: Lung bases are clear. Heart size is normal. -Solid organs: Liver and spleen are normal in size and enhancement. Gallbladder surgically absent. There is mild intrahepatic biliary ductal dilatation and the common bile duct is mildly ectatic throughout its course. Pancreas enhances normally. No adrenal nodules. Kidneys demonstrate normal size and enhancement, without hydronephrosis. -Peritoneum and bowel: The stomach is fluid-filled. There is diffuse, moderate dilatation throughout the small bowel. A thickwalled, enhancing mass is present within the mid ascending colon. There is marked dilatation of the cecum. The downstream colon is decompressed. -Nodes and vessels: No retroperitoneal or mesenteric adenopathy by size criteria. Aorta and inferior vena cava are normal in size. There are scattered atheromatous calcifications throughout the aorta and iliac arteries bilaterally. -Miscellaneous: No ventral hernias. PELVIS: -Genitourinary: Bladder wall thickness is normal. The uterus is nonvisualized and may be surgically absent. -Miscellaneous: No inguinal hernias or adenopathy. -Bones: No suspicious bony lesions. No vertebral body compression fractures. Bilateral hip arthroplasties are grossly intact. 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 Dictated by: Brynn Marques M.D. on 12/23/2016 at 8:43 Approved by: Brynn Marques M.D. on 12/23/2016 at 8:48 X-RAY ACUTE ABDOMINAL SERIES (12/28/16) FINDINGS: -Surgical changes and devices: Bilateral hip arthroplasties and cholecystectomy clips. -Chest: Lungs are clear. Heart size is normal. No pleural effusions. No pneumoperitoneum. -Abdomen: Abnormal bowel gas pattern is present. Asymmetric dilatation of small bowel throughout the abdomen and pelvis with paucity of gas within the colon. No pneumatosis or bowel wall thickening. No pneumoperitoneum. -Bones: No suspicious bony lesions. IMPRESSION: Persistent small bowel obstructive pattern. Dictated by: Marcial YIN Interpreted: Brynn Marques MD on 12/23/2016 at 9:22 Transcribed by: JONATAN on 12/23/2016 at 9:23 Approved by: Brynn Marques M.D. on 12/23/2016 at 14:53 Assessment & Plan Impression 89 y/o female with a hx of Afib on Coumadin, irritable bowel syndrome, HTN, and recurrent UTIs who presented to [facility] on 12/22/2016 with the complaint of abdominal pain, nausea and unintentional weight loss of approximately 10 pounds in last year. Found to have a circumferential ascending colonic mass consistent with primary colonic neoplasm with resultant small bowel obstruction and marked cecal dilation on CT. Surgery has been pending INR reversal and improvement in patient's nutritional status. Problems: Plan - Laprascopic assisted right hemicolectomy planned for tomorrow morning. - NPO after midnight - INR 1.16 this AM - STOP Heparin drip at midnight VTE Prophylaxis: SCDs Resuscitation Status: CPR: Attempt Resuscitation Attending Statement: I agree with Dr. Posada's assessment and plan for upcoming surgery. Florence Posada DO Dec 28, 2016 08:15 Jeremy Caldwell MD Jan 11, 2017 10:59
[2016-12-28] MEDS: HYDROmorphone 1 mg/mL Inj IVPUSH PRN ×2 (10:23→19:27)
[2016-12-28] MEDS ORDERED: Heparin 25K Unit/500mL 0.45 NS 25,000 UNIT in IV Premix 1 EACH IV SCH ×2 (10:25→16:30)
[2016-12-28] MEDS ORDERED: Heparin 5,000 Unit/mL Inj IVPUSH PRN ×2 (10:25→16:30)
--- NOTE | 2016-12-28 18:37 | PCM.PNMED ---
Subjective Date of Service Dec 28, 2016 Subjective Overnight: No acute event. Patient walked to [facility] for urination and tolerating well. She had one episode of restless legs and administered 0.5 mg of PRN Dilaudid and effective, no further complaints of restless legs. Tele Afib 60-70 's. Today: patient is in good spirit and has no complaint. She reports very well pain control on the Dilaudid 0.5mg that lasts for approximately 12 hours. She reports some dry, intermittent cough that improves with cough drops. Exam Vital Signs Vital Sign - Last Date Time Temp Pulse Resp B/P Pulse Ox O2 Delivery O2 Flow Rate FiO2 12/28/16 07:22 37.4 108 18 148/84 95 Nasal Cannula 1.00 Intake and Output 12/27/16 12/27/16 12/28/16 Cumulative From/Thru 15:00 23:00 07:00 12/23/16 00:55 - 12/28/16 06:46 Intake Total 1187 ml 886 ml 8534 ml Output Total 120 ml 800 ml 8920 ml Balance 1067 ml 86 ml -386 ml Intake Oral 600 ml 200 ml 4100 ml IV Total 587 ml 201 ml 3485 ml TPN/PPN 485 ml 485 ml FFP 464 ml Output Urine Total 120 ml 800 ml 5320 ml Stool Total 200 ml Urine/Stool Mix 2600 ml Gastric Drainage Total 800 ml # Voids 11 # Bowel Movements 1 0 14 Exam General: Alert, Oriented X3, Cooperative, No Acute Distress Head: Normocephalic, atraumatic. External ears normal. NG tube in place Eyes: EOMI. Anicteric sclerae. Mouth: Mouth Normal, Mucous Membranes Moist/[place] Neck: Neck supple with full range of motion. Chest & Lungs: Mild rales at the bilaterally bases. No wheezes, or rhonchi. Cardiovascular: Irregular rhythm, systolic murmur present. Abdomen: Soft, Non-tender, Non-distended, No masses, Normoactive bowel tones. Musculoskeletal: Normal Range of Motion Extremities: No edema Neurological: Grossly Neurologically Intact, Normal Speech IVs and Medications Medications Reviewed: Medications were reviewed in detail Lab and Diagnostics Result Diagram: 12/28/16 0330 12/28/16 033 X-Rays, CTs and MRIs PROCEDURE: CT ABDOMEN AND PELVIS WITH CONTRAST IMPRESSION: 1. 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 Approved by: Brynn Marques M.D. on 12/23/2016 at 8:48 PROCEDURE: X-RAY ACUTE ABDOMINAL SERIES IMPRESSION: Persistent small bowel obstructive pattern. Dictated by: Marcial Griffith RR Interpreted: Brynn Marques MD on 12/23/2016 at 9:22 Transcribed by: JONATAN on 12/23/2016 at 9:23 Additional Diagnostics Most recent echocardiogram was 03/11/2014 -"EF was 55-60%. Left atrium was severely dilated. Right atrium was severely dilated. There was mild to moderate mitral regurg. There was mild tricuspid regurg. Assessment & Plan 89-year-old female patient with history of atrial fibrillation on Coumadin, hypertension, irritable bowel syndrome, arthritis presented to the ER with complaint of worsening abdominal pain. Admitted for acute bowel obstruction secondary to suspected colon cancer. 1. Suspected colon cancer, unknown chronicity, under workup -CT performed in the ER demonstrating small bowel obstruction secondary to concentric lesion in the ascending colon, suspicious for adenocarcinoma. Discussed results with patient and family and are aware it could represent a malignancy -CT abdomen and pelvis as above -Colonoscopy was done yesterday 12/25. Biopsy pending. -2 units of FFPs were given prior to the colonoscopy on 12/24. One dose of Vitamin K 10mg IV was given on 12/26. -IRN is 1.16 today. Continue to follow INR. -Followed by general surgery, who plan on a lap R jenaro on morning 12/29. 2. Acute bowel obstruction secondary to concentric lesion in the ascending colon, present on admission, resolving -Patient presented with worsening abdominal pain and nausea, which improved after bowel movements on 12/23/16. Patient previously seen by Dr. Cisneros of GI with plan for colonoscopy -NG tube was D/C on 12/25. -Dilaudid available for pain management -Surgical plan as above -PICC line placed 12/26. TPN started at 2100 on 12/26. 3. Acute leukocytosis due to SBO, present on admission, improved. -Patient had mild leukocytosis 11.5, neutrophils 70.0 initially. Today WBC of 10.3. -No clear etiology at this time. -Will continue to monitor signs and symptoms of infection. Will consider starting antibiotics if patient becomes febrile. 4. Chronic atrial fibrillation anticoagulated with Coumadin, present on admission, stable -Continue with home dose of verapamil. -Last echo done in 2013 -On heparin drip. Will hold at midnight for surgery in the morning. -Continue to monitor INR. 5. Chronic hypertension, stable, present on admission, ongoing -Continue with furosemide 40mg PO daily. -Continue to monitor 6. Obstructive sleep apnea managed with CPAP, stable, present on admission, ongoing -On O2 supplement. 7. Restless leg syndrome, chronic, active. -Patient reports no improvement with home dose Pramipexole, but improvement on Dilaudid. -Pramipexole was increased to 0.5mg QHS and 0.125-0.25 PRN during the day. -PRN Dilaudid available. - Continue to monitor PCP: Gastroenterology: Dr. Cisneros Loans Officer: Dr. Rascon CODE STATUS: Full code disposition: Pending hospital course and surgery. Pain Evaluation: Adequate Pain Control VTE Prophylaxis: Sub-Q Heparin (Unfractionated), SCDs VTE Mechanical Devices: Intermittant Pneumatic CD Resuscitation Status: CPR: Attempt Resuscitation Attending Statement The patient was seen and examined together with Dr. Veronica on 12/28/2016 and I agree with the history, exam and plan as outlined in the note above. . Jairo Veronica DO Dec 28, 2016 07:48 Alvarado Mcqueen MD Dec 29, 2016 17:35
--- NOTE | 2016-12-28 19:18 | NUR ---
Heparin/Activity Cardiac: Pt denies CP, Afib 90s-100s, Cardiac heparin gtt continues, instructions to turn off heparin at midnight prior to surgery passed on to NOC nurse. Resp: Denies SOB, SpO2 97% on 1L NC, slightly wheezy this AM and pt has coughing fits. Denies aspiration. GI/: Denies N/V bowel tones present. NPO at midnight posted. Neuro: Alert and oriented x3, GUERRERO, reports full sensation -- generalized weakness. Pt up to BR in room, sitting in chair for meals and walking in [place] with staff.
[2016-12-28] MEDS: Total Parenteral Nutrition 1 BAG IV SCH (20:11)
[2016-12-29] VITALS (20 sets, daily range): BP systolic 100–133; BP diastolic 50–96; PULSE 69–113; RESP 11–24; O2SAT 88–98
[2016-12-29 03:39] LABS: BASOPHILS % (AUTO) 0.5 % (0-3); EOSINOPHILS % (AUTO) 4.3 % (0-5); MONOCYTES % (AUTO) 12.6 % (4-12); Mean Corpuscular Hemoglobin 25.9 pg (27.0-35.0); Mean Corpuscular Volume 84.5 fL (81-100); NEUTROPHILS % (AUTO) 47.9 % (40-74); Platelet Count 320 bil/L (150-400)
[2016-12-29 04:06] LABS: INR 1.1 ratio
[2016-12-29 04:11] LABS: Magnesium 2.1 mg/dL (1.6-2.6); Phosphorus 3.5 mg/dL (2.5-4.9)
--- NOTE | 2016-12-29 04:40 | NUR ---
Heparin/NPO/Sleep Pt heparin turned off at midnight. NPO status started at that time as well. Goal of care for pt is to get adequate sleep. Care clustered for limited interruption. Care ongoing
[2016-12-29] MEDS: Lactated Ringer's 1,000 ML IV SCH ×2 (05:44→07:29)
--- NOTE | 2016-12-29 06:57 | PCM.PNMED ---
Subjective Date of Service Dec 29, 2016 Subjective Overngiht: No acute event. NPO and Heparin turned off at midnight. Today: Surgery this morning. Patient was seen post-op, a little sleepier than usually, but reports to feel great. She was alert and oriented. She has no pain complaint at this point. Exam Vital Signs Vital Sign - Last Date Time Temp Pulse Resp B/P Pulse Ox O2 Delivery O2 Flow Rate FiO2 12/29/16 06:22 69 12/29/16 04:04 36.6 16 131/84 94 Room Air 12/28/16 07:22 1.00 Intake and Output 12/28/16 12/28/16 12/29/16 Cumulative From/Thru 15:00 23:00 07:00 12/23/16 00:55 - 12/29/16 05:42 Intake Total 1411 ml 813 ml 11124 ml Output Total 1500 ml 650 ml 42837 ml Balance -89 ml 163 ml -312 ml Intake Oral 720 ml 100 ml 4920 ml IV Total 691 ml 713 ml 4889 ml TPN/PPN 485 ml FFP 464 ml Output Urine Total 1500 ml 650 ml 7470 ml Stool Total 200 ml Urine/Stool Mix 2600 ml Gastric Drainage Total 800 ml # Voids 11 # Bowel Movements 2 0 16 Exam General: Slightly sleepy, but alert when asked, Oriented X3, Cooperative, No Acute Distress Head: Normocephalic, atraumatic. External ears normal. NG tube in place Eyes: EOMI. Anicteric sclerae. Mouth: Mouth Normal, Mucous Membranes Moist/[place] Neck: Neck supple with full range of motion. Chest & Lungs: Mild rales at the bilateral bases. No wheezes, or rhonchi. Cardiovascular: Irregular rhythm, systolic murmur present. Abdomen: Soft, Non-distended, Surgical dressing in place with no drainage noted. Generalized tender to palpation. Extremities: No edema Neurological: Grossly Neurologically Intact, Normal Speech IVs and Medications Medications Reviewed: Medications were reviewed in detail Lab and Diagnostics Result Diagram: 12/29/16 0320 12/29/16 032 X-Rays, CTs and MRIs PROCEDURE: CT ABDOMEN AND PELVIS WITH CONTRAST IMPRESSION: 1. 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 Approved by: Brynn Marques M.D. on 12/23/2016 at 8:48 PROCEDURE: X-RAY ACUTE ABDOMINAL SERIES IMPRESSION: Persistent small bowel obstructive pattern. Dictated by: Marcial Griffith RRA Interpreted: Brynn Marques MD on 12/23/2016 at 9:22 Transcribed by: JONATAN on 12/23/2016 at 9:23 Additional Diagnostics Most recent echocardiogram was 03/11/2014 -"EF was 55-60%. Left atrium was severely dilated. Right atrium was severely dilated. There was mild to moderate mitral regurg. There was mild tricuspid regurg. Assessment & Plan 89-year-old female patient with history of atrial fibrillation on Coumadin, hypertension, irritable bowel syndrome, arthritis presented to the ER with complaint of worsening abdominal pain. Admitted for acute bowel obstruction secondary to suspected colon cancer. 1. Suspected colon cancer, unknown chronicity, under workup -CT performed in the ER demonstrating small bowel obstruction secondary to concentric lesion in the ascending colon, suspicious for adenocarcinoma. Discussed results with patient and family and are aware it could represent a malignancy -CT abdomen and pelvis as above -Colonoscopy was done yesterday 12/25. Biopsy pending. -2 units of FFPs were given prior to the colonoscopy on 12/24. One dose of Vitamin K 10mg IV was given on 12/26. -IRN is 1.10 today. Continue to follow INR. -Followed by general surgery, who performed a lap R jenaro this morning 12/29. Post- op pain management per surgery. -NPO per Surgery 2. Acute bowel obstruction secondary to concentric lesion in the ascending colon, present on admission, resolving -Patient presented with worsening abdominal pain and nausea, which improved after bowel movements on 12/23/16. Patient previously seen by Dr. Cisneros of GI with plan for colonoscopy -NG tube was D/C on 12/25. -Dilaudid available for pain management -PICC line placed 12/26. TPN started at 2100 on 12/26. 3. Acute leukocytosis due to SBO, present on admission, improved. -Patient had mild leukocytosis 11.5, neutrophils 70.0 initially. Today WBC of 10.2 preop. -No clear etiology at this time. -Will continue to monitor signs and symptoms of infection. Will consider starting antibiotics if patient becomes febrile. 4. Chronic atrial fibrillation anticoagulated with Coumadin, present on admission, stable -Stop PO verapamil due to no PO med. Switch to Diltiazem 10mg IV daily. -Last echo done in 2013 -Patient was on heparin drip. Will consult with surgery before resuming her anticoagulation . -Continue to monitor INR. 5. Chronic hypertension, stable. -Stop furosemide 40mg PO daily due to NPO and low blood pressure. -Continue to monitor BP. 6. Obstructive sleep apnea managed with CPAP, stable, present on admission, ongoing -On O2 supplement. 7. Restless leg syndrome, chronic, active. -Patient reports no improvement with home dose Pramipexole, but improvement on Dilaudid. -Pramipexole was increased to 0.5mg QHS and 0.125-0.25 PRN during the day. -PRN Dilaudid available. -Continue to monitor PCP: Gastroenterology: Dr. Cisneros Seasoner: Dr. Rascon CODE STATUS: Full code disposition: Pending hospital course and surgery. Pain Evaluation: Adequate Pain Control VTE Prophylaxis: Sub-Q Heparin (Unfractionated), SCDs Resuscitation Status: CPR: Attempt Resuscitation Attending Statement The patient was seen and examined together with Dr. Veronica on 12/29/2016 and I agree with the history, exam and plan as outlined in the note above. . Jairo Veronica DO Dec 29, 2016 06:57 Alvarado Mcqueen MD Dec 29, 2016 17:36
[2016-12-29] MEDS ORDERED: Lactated Ringer's 1,000 ML IV SCH (07:26)
[2016-12-29] MEDS ORDERED: Lactated Ringer's 500 ML IV PRN (07:26)
--- NOTE | 2016-12-29 07:26 | PCM.HPANE ---
Patient Data Date of Service: Dec 29, 2016 Surgeon Admitting Provider:Анна Brunner DO Attending Provider:Анна Brunner DO Primary Care Physician:Manju Monge MD Other Provider:[place] Anesthesia Reason for Visit Bowel Obstruction/Afib With Rvr Ht/WT & BMI Height (Feet): 5 Height (Inches): 5.00 Weight (Kilograms): 59.900 Body Mass Index 21.00 Allergies Coded Allergies: No Known Allergies (Verified , 04/08/16) Past Anesthesia History Anesthesia History: Denies:: Anesthesia Reactions Diabetes History Hx Diabetes?: No Current Bedside Blood Glucose: 94 MRSA MRSA: No Medications Active Scripts Cephalexin 500 Mg [id number] Mg PO TID #30 CAPSULE Ref 0 Prov:Sharon Reilly MD 04/08/16 Enoxaparin Sodium 40 Mg/0.4 Ml [id number] Mg SUBQ Q24 #3 SYR Ref 1 Prov:Arvind Cotter MD 03/30/16 oxyCODONE 5 Mg Tablet5 Mg PO Q4H PRN For Moderate Pain #20 TABLET Ref 0 Prov:Arvind Cotter MD 03/30/[address] 40 Mg Tablet.dr40 Mg PO DAILY Ref 0 12/23/16 Warfarin Sodium 5 Mg Tablet5 Mg PO MON-MON-MON 30 Days Ref 0 03/25/16 Warfarin Sodium 5 Mg Tablet2.5 Mg PO JG-BGM-BK-THUR 30 Days Ref 0 03/25/16 Cholecalciferol (Vitamin D3) (Vitamin D3)1,000 Unit Tab.chew1,000 Unit PO DAILY 03/25/16 Verapamil ER 180 Mg Tablet.er180 Mg PO DAILY Ref 0 03/25/16 Trazodone 50 Mg Sxuayy05.5-25 Mg PO HS Ref 0 03/25/16 Pramipexole Dihydrochloride (Mirapex)0.25 Mg Tablet1-2 Tab PO HS 03/25/16 Pramipexole Dihydrochloride (Mirapex)0.25 Mg Tablet0.5-1 Tab PO LATE AFTERNOON 03/25/16 [Lidocaine] No Conflict Check 03/25/16 Furosemide 40 Mg Pqhxoq85 Mg PO DAILY 03/25/16 Folic Acid 0.8 Mg Tablet0.8 Mg PO DAILY 03/25/16 Acetaminophen 500 Mg Tablet1,000 Mg PO Q8HR PRN For Pain 03/25/16 History History of ENT Problems?: Yes HEENT History: Positive for:: Cataracts (surg both eyes) Denies:: Dysphagia Glaucoma Sinus Problem Denture Type: Full- Upper Hx of Heart Problems?: Yes Cardiovascular History: Positive for:: Atrial Fibrillation Congestive Heart Failure (slight) Edema Hypertension Denies:: Cardiac Surgery Chest Pain Heart Murmur Irregular Heartbeat Pacemaker Thrombophlebitis Hx of Respiratory Problem?: Yes Respiratory History: Positive for:: Dyspnea (w/activity) Denies:: Asthma COPD Chest Surgery Emphysema Hemoptysis Pneumonia Tuberculosis Hx Neurologic Problems?: No Neurological History: Denies:: Alzheimer's Disease CVA Dementia Dizziness Headaches Parkinson's Disease Seizures Hx of GI Problems?: Yes Gastrointestinal History: Positive for:: Gastroesphageal Reflux Heartburn Denies:: Diverticulitis Gastrointestinal Bleeding Hepatitis Hiatal Hernia Rectal Bleeding Hx of Problems?: Yes Genitourinary History: Positive for:: Kidney Stones Denies:: HX of Hemodialysis Urinary Tract Infection HX of Peritoneal Dialysis: No Female Hx: Denies:: Currently Hx Musculoskeletal Problems?: Yes Musculoskeletal History: Denies:: Back Injury Joint Replacement Musculoskeletal Trauma Hx of Psycho/Social Problems?: Yes Psycho Social History: Positive for:: Anxiety Hx Depression Denies:: Bipolar Disorder Suicide Attempt Hx Surgeries?: Yes (tonsillectomy, appendectomy, juan, hysterectomy, bladder suspen surgery) Hx Any Other Health Problems?: Yes Other History: Positive for:: Hospitalization (juan) Denies:: Cancer Thyroid Disease History Blood Transfusions: Positive for:: Accept Blood Products? Blood Transfusions Denies:: Blood Transfuse Reaction Hx Diabetes: NoBedside Blood Glucose: 94 Hx Alcohol Use: Yes (very rarely)Hx Substance Use: No Smoking Status: Never Smoker Have You Smoked inLast 12 mo: No Stop/Bang Treated for Sleep Apnea?: No Do You Have a CPAP Machine?: Yes S-Snoring: Do You Snore Loudly: Yes T-Tired: feel tired, fatigued: No O-Obsered: Observed not breath: No P-Blood Pressure: treated: Yes B- Body Mass Index > 35 kg/m2: No A- Age over 50: Yes N- Neck Large Circumference: No G- Gender Male: No EVANGELISTA Total Score: 3 EVANGELISTA Risk Assessment: Low Risk, <3 Yes Risk Assessment Category Category 1A: Patient has history of documented sleep apnea, and HAS NOT received any narcotic, sedative or anesthesia administration during this stay. Category 1B: Patient has history of documented sleep apnea, and HAS received any narcotic , sedative or anesthesia administration during this stay Category 2: Patient has SUSPECTED Obstructive Sleep Apnea, and HAS received any narcotic , sedative or anesthesia administration during this stay. Category 3: Patient has SUSPECTED Obstructive Sleep Apnea and HAS NOT received narcotic, sedative or anesthesia administration during this stay. Category 4: Outpatient in Procedural Areas with known sleep apnea or who screen positive for High Risk via the STOP/BANG questionnaire. Exam Exam Vital Signs Vital Signs Date Time Temp Pulse Resp B/P Pulse Ox O2 Delivery O2 Flow Rate FiO2 12/29/16 06:22 69 12/29/16 04:04 36.6 85 16 131/84 94 Room Air 12/28/16 23:54 36.5 76 16 103/65 94 Room Air General Appearance: Alert, Oriented X3, Cooperative, No Acute Distress HEENT/AIRWAY: MP 2 (upper dentures) Lungs: Clear to Auscultation, Normal Air Movement Heart: Exam Unremarkable, Regular Rate/Rhythm, No Murmurs/Rubs/Gallops Meds/Labs/Diagnostics Admission Meds Current Medications Lactated Ringer's (Lr) 1,000 ml @ 120 mls/hr Q8H20M IV Last administered on t 05:44; Start 12/29/16 at 05:00; Stop 12/29/16 at 13:19 Bedside Blood Glucose: 94 Labs Test 12/23/16 01:11 12/23/16 06:05 12/27/16 04:30 12/28/16 20:55 Lactic Acid Level 1.1mmol/L (0.4-2.0) Troponin T 0.010ug/L (0.0-0.011) Lipase 21U/L (13-60) Carcinoembryonic Antigen 2.6ng/mL (0.0-4.7) Hold Urine Received (Received) Activated Partial Thromboplast Time 78.7sec (22.8-33.0) Test 12/29/16 03:20 White Blood Count 10.2th/mm3 (3.8-10.1) Red Blood Count 3.48mil/mm3 (3.90-5.20) Hemoglobin 9.0g/dL (12.0-15.6) Hematocrit 29.4% (35.0-46.0) Mean Corpuscular Volume 84.5fL (81-100) Mean Corpuscular Hemoglobin 25.9pg (27.0-35.0) Mean Corpuscular Hemoglobin Concent 30.6% (32.0-37.0) Red Cell Distribution Width 14.8% (12.3-15.4) Platelet Count 320bil/L (150-400) Neutrophils (%) (Auto) 47.9% (40-74) Lymphocytes (%) (Auto) 34.2% (14-46) Monocytes (%) (Auto) 12.6% (4-12) Eosinophils (%) (Auto) 4.3% (0-5) Basophils (%) (Auto) 0.5% (0-3) Prothrombin Time 11.8sec (8.1-12.5) Prothromb Time International Ratio 1.10ratio Sodium Level 138mEq/L (134-144) Potassium Level 4.1mEq/L (3.5-5.2) Chloride Level 104mEq/L (97-108) Carbon Dioxide Level 25mmol/L (18-29) Blood Urea Nitrogen 24mg/dL (8-27) Creatinine 0.42mg/dL (0.57-1.00) Estimat Glomerular Filtration Rate 203mL/min (>59) Glucose Level 103mg/dL (60-99) Calcium Level 8.3mg/dL (8.5-10.1) Phosphorus Level 3.5mg/dL (2.5-4.9) Magnesium Level 2.1mg/dL (1.6-2.6) Total Bilirubin 0.3mg/dL (0.0-1.2) Aspartate Amino Transf (AST/SGOT) 14U/L (0-50) Alanine Aminotransferase (ALT/SGPT) 9U/L (0-32) Alkaline Phosphatase 78U/L (25-165) Total Protein 5.3g/dL (6.4-8.4) Albumin 2.6g/dL (3.4-5.0) Plan Impression Patient chart reviewed, patient interviewed and anesthestic plan with risks, benefits, and alternatives discussed, and informed consent obtained. NPO Status: MIDNIGHT ASA Physical Status: ASA3 Severe Disease Anesthetic Plan: GA Bene/Risks/Altern/Consents: Yes HP Complete Prior to Induction: Yes Apollo Ball MD Dec 29, 2016 07:26
[2016-12-29] MEDS ORDERED: Phenylephrine 10,000 mCg/mL Inj IVPUSH PRN (07:30)
[2016-12-29] MEDS ORDERED: fentaNYL-PF 50 mCg/mL 2 mL Inj IVPUSH PRN (07:30)
[2016-12-29] MEDS ORDERED: hydrALAZINE 20 mg/mL Inj IVPUSH PRN (07:30)
[2016-12-29] MEDS ORDERED: EPHEDrine Sulfate 50 mg/mL Inj IVPUSH PRN (07:30)
[2016-12-29] MEDS ORDERED: Labetalol 5 mg/mL 4 mL Inj IV PRN (07:30)
[2016-12-29] MEDS ORDERED: MetoCLOpramide 5 mg/mL 2 mL Inj IVPUSH PRN (07:30)
[2016-12-29] MEDS ORDERED: HYDROmorphone 1 mg/mL Inj IVPUSH PRN (07:30)
[2016-12-29] MEDS ORDERED: Dexamethasone 4 mg/mL Inj IVPUSH PRN (07:30)
[2016-12-29] MEDS ORDERED: Ondansetron 2 mg/mL 2 mL Inj IVPUSH PRN ×2 (07:30→10:00)
[2016-12-29] MEDS ORDERED: metroNIDAZOLE Inj 500 MG in IV Premix 1 EACH IV ONE (08:05)
[2016-12-29] MEDS ORDERED: CeFAZolin Inj 2 GM in IV Premix 1 EACH IV ONE (08:10)
[2016-12-29] MEDS ORDERED: Bupivacaine-MPF 0.5% W/EPI 30 mL Inj INFILTRATE ONE (08:21)
[2016-12-29] MEDS: TPN Per Pharmacist XX SCH (08:30)
[2016-12-29] MEDS ORDERED: Phenylephrine/NS 100 mCg/mL 10 mL Syringe IVPUSH ONE (09:00)
[2016-12-29] MEDS ORDERED: Propofol 10,000 mCg/mL 20 mL Inj ONE (09:00)
[2016-12-29] MEDS ORDERED: fentaNYL-PF 50 mCg/mL 2 mL Inj ONE (09:00)
[2016-12-29] MEDS ORDERED: Neostigmine 1 mg/mL 5 mL Inj ONE (09:00)
[2016-12-29] MEDS ORDERED: Ondansetron 2 mg/mL 2 mL Inj ONE (09:00)
[2016-12-29] MEDS ORDERED: Ketamine 10 mg/mL 20 mL Inj ONE (09:00)
[2016-12-29] MEDS ORDERED: Dexamethasone 4 mg/mL Inj ONE (09:00)
[2016-12-29] MEDS ORDERED: SUGAMMADEX SODIUM IV ONE (09:59)
[2016-12-29] MEDS ORDERED: Lactated Ringer's 1,000 ML IV ONE (10:07)
[2016-12-29] MEDS ORDERED: HYDROmorphone 0.5 mg/0.5 mL iSecure Syringe ONE (10:34)
--- NOTE | 2016-12-29 11:14 | OP ---
[address] [address] OPERATIVE REPORT PATIENT: ERNESTINE ENGLISH : 1925 MR#: [id number] ADMIT: 12/23/2016 JOB ID: [id number] DATE OF SURGERY: 12/29/2016 SURGEON: Jeremy Caldwell MD. POLICE SPECIALIST: Fariha Saravia PA-C. ANESTHESIA: General. PREOPERATIVE DIAGNOSIS(ES): Right colon cancer. POSTOPERATIVE DIAGNOSIS(ES): Right colon cancer. PRINCIPAL PROCEDURE: 1. Laparoscopic-assisted right hemicolectomy. 2. Lysis of adhesions. 3. Liver biopsy. INDICATION FOR PROCEDURE: The patient is an 89-year-old female with right-sided colon cancer based on CT scan and colonoscopy. PRINCIPAL FINDING: Successful laparoscopically assisted right hemicolectomy with primary anastomosis, some lysis of adhesions, and liver biopsy. The assistance from a surgical PA was critical in completion of the case. PROCEDURE COURSE: The patient was brought to the operating table and was provided with general anesthesia. The patient was given IV antibiotics and SCDs. A time-out was performed. The patient's abdomen was then prepped and draped in the usual sterile fashion. The patient was given an OG tube and also a Rahman catheter. A time-out was performed. We started with insufflating her abdomen through the left upper quadrant site. A port was placed, and the laparoscope was introduced. A second port was placed in the left lateral abdomen and a third port was placed in the lower midline. There were some omental adhesions to the undersurface of the anterior abdominal wall, and these were taken down using electrocautery. We could clearly identify the hard right colon mass that was near the hepatic flexure, and we could see the endoscopically placed tattoo ink. At this point, we enlarged the midline port to approximately 6 cm and we placed a GelPort into her abdomen. With my left hand in her abdomen, we started to mobilize the ileum and the cecum. The right colon was then detached from the lateral abdominal wall and the hepatic flexure was freed until we were well beyond the tattoo inking. Care was taken not to injure the duodenum or any retroperitoneal structures. At this point, we could extract the entire specimen out of the lower midline incision very easily. The ileum was divided using a SATISH stapler and the transverse colon beyond the tattoo ink was also divided using a SATISH stapler. The mesentery was then divided using the Impact LigaSure device, and the specimen was then sent to Pathology. A [id number] functional end-to-end ileal to transverse colon anastomosis was achieved using another firing of the SATISH stapler, and the common channel was then closed using a fourth firing of the stapler. The anastomosis was palpated to be widely patent and a crotch stitch was placed at the end of the staple line. Hemostasis was controlled. During the laparoscopic phase of the procedure, we could see some whitish lesion or scar at the inferior edge of the liver. Photographs were obtained, and multiple biopsies of the liver were performed and sent to Pathology. Not sure if these represent metastatic disease or benign nodules. Next, irrigation of the abdomen was carried out and fluid was aspirated. Hemostasis was verified. Next, CO2 was allowed to escape and the GelPort was removed from the patient. The fascial opening was then reapproximated using a running #1 PDS suture. Local anesthetic was applied to both sides of the abdominal wall of the incision. Skin edges were then reapproximated using absorbable sutures. By the end of the procedure, needle counts and sponge counts were correct. The patient was then extubated and taken to the recovery room in stable satisfactory condition.
[2016-12-29 12:02] LABS: APPEARANCE,URINE HAZY (CLEAR,HAZY); COLOR,URINE STRAW (YELLOW); OCCULT BLOOD,URINE NEGATIVE (NEGATIVE); UROBILINOGEN,URINE NORMAL (NORMAL)
--- NOTE | 2016-12-29 12:25 | PCM.ANEP2 ---
Post Anesthesia Evaluation ASA/CMS Post Anesthesia VS in Patient's Normal Range?: Yes Resp Stable; Airway Patent?: Yes CV Function & Hydration Stable: Yes Mental Status Recovered?: Yes Pain control Satisfactory?: Yes N/V Control Satisfactory?: Yes Apollo Ball MD Dec 29, 2016 12:25
--- NOTE | 2016-12-29 12:25 | PCM.ANEP1 ---
Post Anesthesia Phase 1 PACU Phase 1 Assessment Date of Service: Dec 29, 2016 Vital Signs Vital Signs Date Time Temp Pulse Resp B/P Pulse Ox O2 Delivery O2 Flow Rate FiO2 12/29/16 12:12 36.4 89 19 102/53 96 Nasal Cannula 3.00 12/29/16 11:30 92 14 106/54 94 Nasal Cannula 3 12/29/16 11:15 91 11 100/63 96 Simple Mask 14 12/29/16 11:05 89 13 107/52 98 Simple Mask 14 12/29/16 11:00 89 15 120/59 98 Simple Mask 14 12/29/16 10:45 36.6 98 13 120/69 97 Simple Mask 14 12/29/16 10:40 104 22 121/50 95 Simple Mask 14 12/29/16 10:35 103 22 120/77 95 Simple Mask 14 12/29/16 10:30 105 24 113/62 95 Simple Mask 14 12/29/16 10:25 110 22 114/61 95 Simple Mask 14 12/29/16 10:20 102 20 101/62 94 Simple Mask 10 12/29/16 10:16 36.4 107 20 124/96 88 Simple Mask 10 12/29/16 07:32 113 12/29/16 06:22 69 Anesthetic Administered: GA Level of Alertness: Sleeping, hard to arouse GUERRERO's with Equal Strength: Yes Pain: No Pain Scale Score: 6 Nausea or Vomiting: No Oxygen Delivery: Simple Mask Lungs: Clear to Auscultation, Normal Air Movement Apollo Ball MD Dec 29, 2016 12:25
--- NOTE | 2016-12-29 14:14 | PCM.PHAPRO ---
Progress Date of Service: Dec 29, 2016 TPN No changes to admixture, reevaluate tomorrow with AM labs. PARENTERAL NUTRITION ORDERS 4 29-Dec-16 Standard Hang Time: 2100 Substrates Total kcal: 990 AMINO ACIDS 45 g DEXTROSE 150 g Total Volume (mL): 1000 LIPIDS 30 g Sterile Water for Injection QS mL To Infuse Over (hrs): 24 Total Volume 1000 mL At at a rate of (mL/hr): 42 Additives Sodium Chloride 70 mEq "typical" daily requirements Sodium Acetate 30 mEq Sodium 50-120mEq Potassium Chloride 40 mEq Potassium 60-120mEq Potassium Phosphate 10 mEq Phosphate 20-40mEq Calcium Gluconate 9 mEq Magnesium 8-32mEq Magnesium Sulfate 8 mEq Calcium 9-22mEq Acetate* 80-120mEq Chloride* 80-120mEq Regular Insulin units *Depending on acid-base status Famotidine mg Multivitamins 1 std dose Insulin Regimen Trace Elements 1 std dose none Thiamine mg Regular Low Intensity Subcut Folic Acid mg Regular Medium Intensity Subcut Ascorbic Acid mg Regular High Intensity Subcut Regular Insulin Infusion Alvarado Moreau Dec 29, 2016 14:14
[2016-12-29] MEDS: Diltiazem 5 mg/mL 5 mL Inj IVPUSH SCH ×2 (15:06→21:38)
--- NOTE | 2016-12-29 15:14 | NUR ---
Post-Op PCC Pt back from surgery at 12:00, report received from [facility]. Vitals taken, BP 100/50s, but stable, increasing steadily through shift. SCDs placed on pt, UA sent to lab. Cardiac:Denies CP. Tele afib 80s-110, PO meds changed to IV Diltiazem. Resp: Denies SOB. SpO2 mid 90s on RA. incentive spirometer at bedside. GI/: Denies n/v/d or abdominal pain. NPO, Ice chips OK per Dr Caldwell. Rahman draining to gravity. Neuro: A&O x 3. Able to GUERRERO with CMS intact. Dilaudid ordered for restless leg syndrome.
[2016-12-29] MEDS: CeFAZolin Inj 2 GM in IV Premix 1 EACH IV SCH (15:55)
[2016-12-29] MEDS: metroNIDAZOLE Inj 500 MG in IV Premix 1 EACH IV SCH ×2 (17:00→23:42)
[2016-12-29] MEDS: Ketorolac 15 mg/mL Inj IVPUSH PRN (18:05)
[2016-12-29] MEDS: HYDROmorphone 1 mg/mL Inj IVPUSH PRN (21:38)
[2016-12-29] MEDS: Total Parenteral Nutrition 1 BAG IV SCH (21:44)
[2016-12-30] VITALS (8 sets, daily range): BP systolic 120–136; BP diastolic 60–76; PULSE 80–99; RESP 16–18; O2SAT 93–98
[2016-12-30] MEDS: Ketorolac 15 mg/mL Inj IVPUSH PRN ×3 (00:20→15:01)
[2016-12-30] MEDS: CeFAZolin Inj 2 GM in IV Premix 1 EACH IV SCH (00:36)
[2016-12-30] MEDS: Diltiazem 5 mg/mL 5 mL Inj IVPUSH SCH ×4 (03:39→21:33)
[2016-12-30 04:00] LABS: BASOPHILS % (AUTO) 0.1 % (0-3); EOSINOPHILS % (AUTO) 0 % (0-5); MONOCYTES % (AUTO) 7.3 % (4-12); Mean Corpuscular Hemoglobin 25.9 pg (27.0-35.0); Mean Corpuscular Volume 83.4 fL (81-100); NEUTROPHILS % (AUTO) 80.2 % (40-74); Platelet Count 340 bil/L (150-400)
[2016-12-30] MEDS: HYDROmorphone 1 mg/mL Inj IVPUSH PRN ×2 (04:02→17:57)
[2016-12-30 04:20] LABS: INR 1.12 ratio
[2016-12-30 04:25] LABS: Magnesium 2.2 mg/dL (1.6-2.6); Phosphorus 3.6 mg/dL (2.5-4.9)
--- NOTE | 2016-12-30 04:55 | NUR ---
Pain Pt alert and oriented x3. [place] and wears hearing aide. She c/o abd pain 3-01/30 and reports pain relief from Toradol and Dilaudid for breakthrough pain. 02sat in mid 90s on 3L. Desat to high 80s on 3L when pt falls to deep sleep and started snoring. Pt prefers not to wear Oxymask if possible. 02sat goes up once pt is awake. IS at bedside and pt using while awake. Dressing CDI. No bm or flatus noted/reported at this time. Afib in 80s-100s.
[2016-12-30] MEDS: metroNIDAZOLE Inj 500 MG in IV Premix 1 EACH IV SCH ×2 (08:07→16:30)
--- NOTE | 2016-12-30 08:09 | PCM.PNSURG ---
Subjective Date of Service: Dec 30, 2016 Date of Service: Dec 30, 2016 Visit Information: Reason for Visit: Postop visit for right colon cancer Surgery: 1. Laparoscopic-assisted right hemicolectomy. 2. Lysis of adhesions. 3. Liver biopsy. Post-Op Day # 1 Date of Admission: Dec 23, 2016 at 03:25 Subjective: The patient is sitting in bed, resting comfortably. No complaints. Denies N/ V. Denies flatus or belching. Some incisional pain, but overall feels pretty good Postop General: No Complaints Gastrointestinal: No N/V Pain Management: IV Push Postop Activity: Other (Has not ambulated since surgery) Objective Vital Sign- Last 8 Hours Date Time Temp Pulse Resp B/P Pulse Ox O2 Delivery O2 Flow Rate FiO2 12/30/16 05:21 81 12/30/16 03:37 36.4 94 16 131/60 98 Nasal Cannula 3.00 Intake and Output- Last 8 Hour 12/30/16 Cumulative From/Thru 07:00 12/23/16 00:55 - 12/30/16 06:06 Intake Total 911 ml 92520 ml Output Total 700 ml 57400 ml Balance 211 ml 1694 ml Intake Oral 0 ml 4920 ml IV Total 911 ml 9355 ml TPN/PPN 485 ml FFP 464 ml Output Urine Total 700 ml 9900 ml Stool Total 200 ml Urine/Stool Mix 2600 ml Gastric Drainage Total 800 ml Estimated Blood Loss 30 ml # Voids 11 # Bowel Movements 16 General: Alert, Oriented X3 Lungs: Clear to Auscultation Heart: No Murmurs/Rubs/Gallops, Other (irregualr rate and rhythm) Abdomen: Soft, Appropriately tender, Non-distended, Other (bowel tones right side) SURGICAL WOUND : Wound General Appearence: Steri Strips, No Erythema, No Discharge Dressing & Drainage Status: Intact Extremities: Warm, Thigh&Calf Soft/Nontender Neuro: Grossly Neurologically Intact Catheters: Urethral 2 Way [place] Result Diagram: 12/30/16 03512/30/16 035 Assessment & Plan Impression 89 yo female S/P Right jenaro-Colectomy for Colon Cancer. Surgically and medically stable Primary Diagnosis: Right Colon Cancer Secondary diagnosis: Atrial fibrillation on anticoagulation with Coumadin Hypertension Hyperlipidemia Mitral regurgitation Chronic cystitis Irritable bowel syndrome Restless leg syndrome Arthritis Sleep apnea requiring CPAP at night Spondylolysis of cervical spine Closed fracture of left femoral neck-2016 Surgical History Cholecystectomy Hysterectomy Bladder sling Tonsillectomy and adenoidectomy Appendectomy Left hip surgery Right hip replacement Problems: Plan 1. May advance to clear liquid diet 2. Ambulate tid 3. D/C orellana later this afternoon 4. Continue with IV medication until tomorrow Pain Management: IV push VTE Prophylaxis: Sub-Q Heparin (Unfractionated), SCDs Resuscitation Status: CPR: Attempt Resuscitation Fariha Saravia PA-C Dec 30, 2016 08:09
--- NOTE | 2016-12-30 10:45 | NUR ---
NUTRITION FOLLOW-UP: ASSESS: 89 YO female admitted with bowel obstruction. Colonoscopy showed probable colon cancer with partial small bowel obstruction; POD #1 following laparoscopic-assisted right hemicolectomy, lysis of adhesions, liver biopsy. TPN initiated 12/26 as supplemental nutrition to help improve nutrition status prior to surgery; pt. appears to be tolerating TPN well. Diet has been NPO / clear liquids x 2 D; spoke with pharmacy and requested to increase the macronutrient content of the TPN for today's bag. The patient is doing well from a clinical standpoint; she has not had a BM since 12/28. Once diet advanced and patient consistently tolerating > 50% trays, will recommend to taper TPN. PMHX: Afib, HTN, HLD, IBS. LABS: Cr 0.34, Glu 161, Ca 8.3. MEDS:Reviewed. GI: BM x 2 (12/28). SKIN: Owen 16. WTS: 59.9 kg, BMI 22.0kg/m2. Admit wt 57.6kg Family reporting progressive wt loss. Per chart review, wt has been stable x 1year. DIET: NPO / clear liquids x 2 D. PO intake full liquid diet 12/27 75% trays x 1 D. TPN:150g Dex, 45g AA and 30g lipids to provide 1020kcal and 45g pro (~50% kcal and pro needs). EST. NEEDS: (colon ca, wt gain): Kcals: 1780-2075kcal/day (30-35kcal/kg) Pro: 70-90g/day (1.2-1.5g/kg) Fluid: ~1500-1780mlday (25-30ml/kg) NUTRITION DIAGNOSIS: 1) Inadequate oral intake related to altered GI function as evidence by current CL diet order and partial SBO - PERSISTS. 2) Increased nutrient needs related to altered GI function as evidence by new colon ca diagnosis and colectomy surgery soon - PERSISTS. NUTRITION INTERVENTION: 1)TPN macronutrient orders written today as follows: 265g Dex, 85g AA and 55g lipids to provide 1790 kcal and 85 g pro, sufficient to meet 100% nutrient needs). MONITOR / EVAL: TPN tiffanie/advance, labs, diet advance, wt, GI, PO intake, POC, nutrition status. Will continue to follow per high nutrition risk guidelines
--- NOTE | 2016-12-30 11:14 | PCM.PHAPRO ---
Progress Date of Service: Dec 30, 2016 Laboratory Tests Test 12/29/16 12:30 12/30/16 03:50 Hold Urine Received (Received) White Blood Count 13.9th/mm3 (3.8-10.1) Red Blood Count 3.32mil/mm3 (3.90-5.20) Hemoglobin 8.6g/dL (12.0-15.6) Hematocrit 27.7% (35.0-46.0) Mean Corpuscular Volume 83.4fL (81-100) Mean Corpuscular Hemoglobin 25.9pg (27.0-35.0) Mean Corpuscular Hemoglobin Concent 31.0% (32.0-37.0) Red Cell Distribution Width 14.8% (12.3-15.4) Platelet Count 340bil/L (150-400) Neutrophils (%) (Auto) 80.2% (40-74) Lymphocytes (%) (Auto) 12.1% (14-46) Monocytes (%) (Auto) 7.3% (4-12) Eosinophils (%) (Auto) 0% (0-5) Basophils (%) (Auto) 0.1% (0-3) Prothrombin Time 12.0sec (8.1-12.5) Prothromb Time International Ratio 1.12ratio Sodium Level 138mEq/L (134-144) Potassium Level 4.4mEq/L (3.5-5.2) Chloride Level 105mEq/L (97-108) Carbon Dioxide Level 24mmol/L (18-29) Blood Urea Nitrogen 16mg/dL (8-27) Creatinine 0.34mg/dL (0.57-1.00) Estimat Glomerular Filtration Rate 260mL/min (>59) Glucose Level 161mg/dL (60-99) Calcium Level 8.3mg/dL (8.5-10.1) Phosphorus Level 3.6mg/dL (2.5-4.9) Magnesium Level 2.2mg/dL (1.6-2.6) Triglycerides Level 69mg/dL (0-149) Microbiology 12/23/16 Stool Occult Blood (ROBBIE) - Final, Complete 12/29/16 Urine Culture - Preliminary, Resulted Pt continues on TPN. Labs are WNL. Per clinical supplier diversity director pt to continue on TPN & clear liquid diet a few more days. Macronutrients are at goal. Will continue same TPN formula tonight. BMP is ordered for am. Pharmacy will continue to follow this patient for TPN therapy. Elvi Freeman PharmD Dec 30, 2016 11:14
[2016-12-30] MEDS ORDERED: Acetaminophen IV 1,000 MG in IV Premix 1 EACH IV PRN (15:40)
[2016-12-30] MEDS: Heparin 25K Unit/500mL 0.45 NS 25,000 UNIT in IV Premix 1 EACH IV SCH (15:45)
--- NOTE | 2016-12-30 16:52 | PCM.PNMED ---
Subjective Date of Service Dec 30, 2016 Subjective Overnight: Pain is well controlled with Toradol Q6H around the clock (per patient's request) and Dilaudid PRN. She desat to high 80s on 3L with deep sleep but O2 sat goes up when awake. No acute event. Afib in 80s-100s. Today: patient reports to feel great. She has very minimal pain around the incision site, more like "soreness on the left side from lying." She has passed gas and voided with no difficulty. Ambulates around the halls with tax accounting assistant with no issue. She tolerates clear liquid diet well and would like to advance soon. No other complaint. Exam Vital Signs Vital Sign - Last Date Time Temp Pulse Resp B/P Pulse Ox O2 Delivery O2 Flow Rate FiO2 12/30/16 16:00 36.9 92 16 120/76 93 Room Air 12/30/16 08:00 2.00 Intake and Output 12/29/16 12/29/16 12/30/16 Cumulative From/Thru 15:00 23:00 07:00 12/23/16 00:55 - 12/30/16 06:06 Intake Total 2000 ml 1555 ml 911 ml 74169 ml Output Total 720 ml 1040 ml 700 ml 92468 ml Balance 1280 ml 515 ml 211 ml 1694 ml Intake Oral 0 ml 0 ml 4920 ml IV Total 2000 ml 1555 ml 911 ml 9355 ml TPN/PPN 485 ml FFP 464 ml Output Urine Total 690 ml 1040 ml 700 ml 9900 ml Stool Total 200 ml Urine/Stool Mix 2600 ml Gastric Drainage Total 800 ml Estimated Blood Loss 30 ml 30 ml # Voids 11 # Bowel Movements 16 Exam General: Alert, Oriented X3, Cooperative, No Acute Distress. Head: Normocephalic, atraumatic. External ears normal. Eyes: EOMI. Anicteric sclerae. Mouth: Mouth Normal, Mucous Membranes Moist/[place] Neck: Neck supple with full range of motion. Chest & Lungs: Clear to auscultation, no crackles, wheezes, or rhonchi. Cardiovascular: Irregular rhythm, soft systolic murmur present. Abdomen: Soft, Non-distended, Surgical dressing in place with no drainage noted. Mild tenderness to palpation on the LUQ. No guarding. Extremities: Trace edema on bilateral lower extremities. Neurological: Grossly Neurologically Intact, Normal Speech IVs and Medications Medications Reviewed: Medications were reviewed in detail Lab and Diagnostics Result Diagram: 12/30/16 0350 12/30/16 0350 X-Rays, CTs and MRIs PROCEDURE: CT ABDOMEN AND PELVIS WITH CONTRAST IMPRESSION: 1. 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 Approved by: Brynn Marques M.D. on 12/23/2016 at 8:48 PROCEDURE: X-RAY ACUTE ABDOMINAL SERIES IMPRESSION: Persistent small bowel obstructive pattern. Dictated by: Marcial Griffith RRSoham Interpreted: Brynn Marques MD on 12/23/2016 at 9:22 Transcribed by: JONATAN on 12/23/2016 at 9:23 Additional Diagnostics Most recent echocardiogram was 03/11/2014 -"EF was 55-60%. Left atrium was severely dilated. Right atrium was severely dilated. There was mild to moderate mitral regurg. There was mild tricuspid regurg. Assessment & Plan 89-year-old female patient with history of atrial fibrillation on Coumadin, hypertension, irritable bowel syndrome, arthritis presented to the ER with complaint of worsening abdominal pain. Admitted for acute bowel obstruction secondary to suspected colon cancer. 1. Suspected colon cancer, unknown chronicity, under workup -s/p laparoscopic right hemicolectomy by Dr. Caldwell on 12/29. POD#1. - CT performed in the ER demonstrating small bowel obstruction secondary to concentric lesion in the ascending colon, suspicious for adenocarcinoma. Discussed results with patient and family and are aware it could represent a malignancy -Colonoscopy was done yesterday 12/25. Biopsy pending. -2 units of FFPs were given prior to the colonoscopy on 12/24. One dose of Vitamin K 10mg IV was given on 12/26. -Post-op pain management and antibiotics per surgery, but given the risk of kidney injury on NSAIDs, will switch from Toradol to IV Tylenol. -Continue Flagyl. Patient also received 2 doses of Ancef post-op. -Diet advanced to clear liquid per Surgery. However, no PO med. 2. Acute bowel obstruction secondary to concentric lesion in the ascending colon, present on admission, resolved. -Patient presented with worsening abdominal pain and nausea, which improved after bowel movements on 12/23/16. Patient previously seen by Dr. Cisneros of GI with plan for colonoscopy -NG tube was D/C on 12/25. -IV Tylenol and Dilaudid available for pain management -PICC line placed 12/26. TPN started at 2100 on 12/26. 3. Acute leukocytosis due to SBO, present on admission, improved. -Patient had mild leukocytosis 11.5, neutrophils 70.0 initially. -WBC increased to 13.9 today, but likely due to post-op stress reaction. Will continue to monitor CBC. -Will continue to monitor signs and symptoms of infection. 4. Chronic atrial fibrillation anticoagulated with Coumadin, present on admission, stable -Rate controlled. Home Verapamil was d/c yesterday due to no PO med. Continue Diltiazem 10mg IV Q6H. -Last echo done in 2013 -Patient was on warfarin, which then changed to heparin drip before the surgery. Per surgery's recommendation, will resume Heparin drip today. NO Heparin bolus. 5. Chronic hypertension, stable. -Furosemide 40mg PO daily was discontinued after surgery due to NPO status and patient's low blood pressure. -BP has been stable around 130s/60s. Continue to monitor BP. 6. Obstructive sleep apnea managed with CPAP, stable, present on admission, ongoing -On O2 supplement. 7. Restless leg syndrome, chronic, active. -Patient reports no improvement with home dose Pramipexole, but improvement on Dilaudid. -Hold off on Pramipexole. -PRN Dilaudid available. -Continue to monitor PCP: Gastroenterology: Dr. Cisneros Book Mender: Dr. Rascon CODE STATUS: Full code disposition: Pending hospital course and surgery. Pain Evaluation: Adequate Pain Control VTE Prophylaxis: SCDs, Other (Heparin drip) VTE Mechanical Devices: Intermittant Pneumatic CD Resuscitation Status: CPR: Attempt Resuscitation Attending Statement The patient was seen and examined together with Dr. Veronica on 12/30/2016 and I agree with the history, exam and plan as outlined in the note above. . Jairo Veronica DO Dec 30, 2016 16:51 Alvarado Mcqueen MD Dec 31, 2016 14:09
--- NOTE | 2016-12-30 18:45 | NUR ---
GI//activity/pain Tolerating liquid diet. Denies nausea. Bowel sounds throughout. Belching, denies flatus. Up with SBA and walker, ambulated in halls x 3 this shift. Steady gait, tolerating increased activity levels. Rahman d/c mid-shift, minimal output since removal. Urine output decreased, 400cc racheal urine out this shift. Afib per media monitor, rate controlled. Normotensive. Afebrile. Sp02 >92% on room air while awake, 2L 02 per NC at sleep.
[2016-12-30] MEDS: TPN Per Pharmacist XX SCH (20:51)
[2016-12-30] MEDS: Total Parenteral Nutrition 1 BAG IV SCH (21:04)
[2016-12-31] VITALS (9 sets, daily range): BP systolic 98–142; BP diastolic 60–85; PULSE 73–93; RESP 16–18; O2SAT 95–97
[2016-12-31 03:32] LABS: BASOPHILS % (AUTO) 0.5 % (0-3); EOSINOPHILS % (AUTO) 3.9 % (0-5); MONOCYTES % (AUTO) 10.1 % (4-12); Mean Corpuscular Hemoglobin 25.5 pg (27.0-35.0); Mean Corpuscular Volume 84.2 fL (81-100); NEUTROPHILS % (AUTO) 59.7 % (40-74); Platelet Count 336 bil/L (150-400)
[2016-12-31 03:48] LABS: INR 1.13 ratio
[2016-12-31] MEDS: Heparin 5,000 Unit/mL Inj IVPUSH PRN ×3 (04:16→16:30)
[2016-12-31] MEDS: Diltiazem 5 mg/mL 5 mL Inj IVPUSH SCH ×2 (04:17→08:27)
--- NOTE | 2016-12-31 06:55 | NUR ---
Social Work: Readiness for Discharge (Late entry) D: Pt currently on day 8 of stay for bowel obstruction and AFIB with RVR. Pt discussed in am rounds on 12/30. Pt had colectomy on 12/29/16. Pt anticipated to require hospitalization through the weekend, no specific discharge timeframe provided. Pt remains on TPN and started on clear liquids. Pt was ambulating SBA on 12/30. RAMP SUPERVISOR met with pt at bedside to discuss discharge planning and assess for unmet needs. Pt states that she has no concerns about discharge back home with her spouse. She and family would like to have [employer] come for PT, RN and MARINE DIESEL TECHNICIAN. F2F obtained by . Pt denies any further needs or concerns at this time A: Pt who is I at baseline. P: Anticipate pt to discharge home via POV with [employer] for RN, PT, MARINE DIESEL TECHNICIAN once medically stable. RAMP SUPERVISOR to continue to follow. LUIS MANUEL Gilbert
--- NOTE | 2016-12-31 07:35 | PCM.PHAPRO ---
Progress PARENTERAL NUTRITION ORDERS 5 30-Dec-16 Standard Hang Time: 2100 Substrates Total kcal: 990 AMINO ACIDS 45 g DEXTROSE 150 g Total Volume (mL): 1000 LIPIDS 30 g Sterile Water for Injection QS mL To Infuse Over (hrs): 24 Total Volume 1000 mL At at a rate of (mL/hr): 42 Additives Sodium Chloride 70 mEq "typical" daily requirements Sodium Acetate 30 mEq Sodium 50-120mEq Potassium Chloride 40 mEq Potassium 60-120mEq Potassium Phosphate 10 mEq Phosphate 20-40mEq Calcium Gluconate 9 mEq Magnesium 8-32mEq Magnesium Sulfate 8 mEq Calcium 9-22mEq Acetate* 80-120mEq Chloride* 80-120mEq Regular Insulin units *Depending on acid-base status Famotidine mg Multivitamins 1 std dose Insulin Regimen Trace Elements 1 std dose none Thiamine mg Regular Low Intensity Subcut Folic Acid mg Regular Medium Intensity Subcut Ascorbic Acid mg Regular High Intensity Subcut Regular Insulin Infusion Other: Special Instructions: To be infused via central line only. For delay or inturruption of TPN contact the pharmacist for alternative replacement solution. Signature Date: ERNESTINE ENGLISH 2007 Nikos Gale Dec 31, 2016 07:35
[2016-12-31] MEDS: HYDROmorphone 1 mg/mL Inj IVPUSH PRN ×2 (08:27→18:11)
[2016-12-31] MEDS: TPN Per Pharmacist XX SCH (08:30)
[2016-12-31] MEDS ORDERED: Amoxicillin-Clav 500-125 mg Tablet PO SCH (10:00)
--- NOTE | 2016-12-31 10:03 | PCM.CONPHA ---
Subjective Date of Service: Dec 31, 2016 Requesting Provider: Jairo Veronica DO Reason for Pharmacy Consult: Anticoagulation Management Objective Vital Signs Date Time Temp Pulse Resp B/P Pulse Ox O2 Delivery O2 Flow Rate FiO2 12/31/16 09:24 87 12/31/16 08:15 36.6 90 18 139/81 95 Room Air 12/31/16 05:54 90 12/31/16 04:10 36.8 89 142/82 96 Room Air 12/31/16 00:21 36.6 81 18 118/68 96 Room Air 12/30/16 20:48 89 131/76 95 Room Air 12/30/16 16:00 36.9 92 16 120/76 93 Room Air 12/30/16 12:07 36.6 80 136/68 97 Room Air 12/30/16 11:33 36.8 88 18 124/63 94 Room Air Intake and Output 12/29/16 12/30/16 12/31/16 00:00 00:00 00:00 Intake Total 2297 ml 4368 ml 2599 ml Output Total 2300 ml 2410 ml 1125 ml Balance -3 ml 1958 ml 1474 ml Weight (Kilograms): 61.900 Height (Feet): 5 Height (Inches): 5.00 Test 12/23/16 01:11 12/23/16 06:05 12/29/16 03:20 12/29/16 07:45 Lactic Acid Level 1.1mmol/L (0.4-2.0) Troponin T 0.010ug/L (0.0-0.011) Lipase 21U/L (13-60) Carcinoembryonic Antigen 2.6ng/mL (0.0-4.7) Total Bilirubin 0.3mg/dL (0.0-1.2) Aspartate Amino Transf (AST/SGOT) 14U/L (0-50) Alanine Aminotransferase (ALT/SGPT) 9U/L (0-32) Alkaline Phosphatase 78U/L (25-165) Total Protein 5.3g/dL (6.4-8.4) Albumin 2.6g/dL (3.4-5.0) Urine Color Straw (YELLOW) Urine Appearance Hazy (CLEAR,HAZY) Urine pH 8.0 (5.0-8.0) Urine Specific [place] 1.010 (1.003-1.035) Urine Protein Negativemg/dL (NEG,TRACE) Urine Glucose (UA) Negativemg/dL (NEGATIVE) Urine Ketones Negativemg/dL (NEGATIVE) Urine Occult Blood Negative (NEGATIVE) Urine Nitrite Positive (NEGATIVE) Urine Bilirubin Negative (NEGATIVE) Urine Urobilinogen Normalmg/dL (NORMAL) Urine Leukocyte Esterase Negative (NEGATIVE) Urine RBC 0-2/hpf (0-2) Urine WBC 0-5/hpf (0-5) Urine Epithelial Cells Occasional/hpf (NONE-MOD) Urine Crystals None seen (NONE SEEN) Urine Bacteria Many/hpf (NONE-FEW) Urine Hyaline Casts None/lpf (NONE) Urine Granular Casts None seen (NONE SEEN) Urine Waxy Casts None seen (NONE SEEN) Urine Red Blood Cell Casts None seen (NONE SEEN) Urine White Blood Cell Casts None seen (NONE SEEN) Urine Mucus None seen (None Seen) Urine Trichomonas None seen (NONE SEEN) Urine Yeast None (NONE SEEN) Urinalysis Comment None Urine Culture Reflexed Indicated Test 12/29/16 12:30 12/30/16 03:50 12/31/16 03:20 12/31/16 09:37 Hold Urine Received (Received) Phosphorus Level 3.6mg/dL (2.5-4.9) Magnesium Level 2.2mg/dL (1.6-2.6) Triglycerides Level 69mg/dL (0-149) White Blood Count 11.0th/mm3 (3.8-10.1) Red Blood Count 3.30mil/mm3 (3.90-5.20) Hemoglobin 8.4g/dL (12.0-15.6) Hematocrit 27.8% (35.0-46.0) Mean Corpuscular Volume 84.2fL (81-100) Mean Corpuscular Hemoglobin 25.5pg (27.0-35.0) Mean Corpuscular Hemoglobin Concent 30.2% (32.0-37.0) Red Cell Distribution Width 14.9% (12.3-15.4) Platelet Count 336bil/L (150-400) Neutrophils (%) (Auto) 59.7% (40-74) Lymphocytes (%) (Auto) 25.5% (14-46) Monocytes (%) (Auto) 10.1% (4-12) Eosinophils (%) (Auto) 3.9% (0-5) Basophils (%) (Auto) 0.5% (0-3) Prothrombin Time 12.1sec (8.1-12.5) Prothromb Time International Ratio 1.13ratio Sodium Level 139mEq/L (134-144) Potassium Level 4.3mEq/L (3.5-5.2) Chloride Level 106mEq/L (97-108) Carbon Dioxide Level 25mmol/L (18-29) Blood Urea Nitrogen 25mg/dL (8-27) Creatinine 0.37mg/dL (0.57-1.00) Estimat Glomerular Filtration Rate 236mL/min (>59) Glucose Level 103mg/dL (60-99) Calcium Level 8.1mg/dL (8.5-10.1) Assessment/Plan Assessment/Plan Warfarin dosing per pharmacy Indication: atrial fibrillation INR goal: 2-3 Home warfarin dose: 5 mg on Mon/Mon/Mon, 2.5 mg on all other days of the week. Labs: INR: 1.13 Hct: 27.8 Plt: 335 Pertinent info - Anticoagulated on heparin drip - FFP on 12/25 prior to colonoscopy - Vitamin K 10 mg IV on 12/26 Warfarin was held for several days and INR is subtherapeutic. Anticipate some resistance to warfarin due to administration of vitamin K. Resume home dose of warfarin; give warfarin 5 mg PO today at 1700. Pharmacy to continue to monitor and dose warfarin daily. Thank you, Philip Berumen Pharmacist Philip Berumen Dec 31, 2016 10:03
--- NOTE | 2016-12-31 10:12 | PCM.PNMED ---
Subjective Date of Service Dec 31, 2016 Subjective Overnight: No acute event. Rahman was discontinued and patient had about 400cc urine output. Tele Afib per color television console monitor, rate controlled. Normotensive. Afebrile. Sp02 >92% on room air while awake, 2L 02 per NC at sleep. Today: Patient reports a large BM this morning and feels great afterward. She still has some soreness at the surgical sites that is well controlled with IV Tylenol. She has been ambulating with orthopedic assistant and her walker. Patient denies nausea, vomiting, fever, chills, or urinary symptoms. She is hungry an. No other complaint. Exam Vital Signs Vital Sign - Last Date Time Temp Pulse Resp B/P Pulse Ox O2 Delivery O2 Flow Rate FiO2 12/31/16 05:54 90 12/31/16 04:10 36.8 142/82 96 Room Air 12/31/16 00:21 18 12/30/16 08:00 2.00 Intake and Output 12/30/16 12/30/16 12/31/16 Cumulative From/Thru 15:00 23:00 07:00 12/23/16 00:55 - 12/31/16 06:11 Intake Total 1688 ml 250 ml 83986 ml Output Total 425 ml 400 ml 02449 ml Balance 1263 ml -150 ml 2807 ml Intake Oral 710 ml 250 ml 5880 ml IV Total 978 ml 02454 ml TPN/PPN 485 ml FFP 464 ml Output Urine Total 425 ml 400 ml 52567 ml Stool Total 200 ml Urine/Stool Mix 2600 ml Gastric Drainage Total 800 ml Estimated Blood Loss 30 ml # Voids 11 # Bowel Movements 16 Exam General: Alert, Oriented X3, Cooperative, No Acute Distress. Head: Normocephalic, atraumatic. External ears normal. Eyes: EOMI. Anicteric sclerae. Mouth: Mouth Normal, Mucous Membranes Moist/[place] Neck: Neck supple with full range of motion. Chest & Lungs: Clear to auscultation, no crackles, wheezes, or rhonchi. Cardiovascular: Irregular rhythm, soft systolic murmur present. Abdomen: Soft, Non-distended, Surgical incisions are well approximated with no erythema or discharge. Mild tenderness to palpation on the LUQ. No guarding. Extremities: +2 pedal edema on bilaterally. Neurological: Grossly Neurologically Intact, Normal Speech IVs and Medications Medications Reviewed: Medications were reviewed in detail Lab and Diagnostics Result Diagram: 12/31/16 0320 12/31/16 0320 X-Rays, CTs and MRIs PROCEDURE: CT ABDOMEN AND PELVIS WITH CONTRAST IMPRESSION: 1. 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 Approved by: Brynn Marques M.D. on 12/23/2016 at 8:48 PROCEDURE: X-RAY ACUTE ABDOMINAL SERIES IMPRESSION: Persistent small bowel obstructive pattern. Dictated by: Marcial Griffith RRSoham Interpreted: Brynn Marques MD on 12/23/2016 at 9:22 Transcribed by: JONATAN on 12/23/2016 at 9:23 Additional Diagnostics Most recent echocardiogram was 03/11/2014 -"EF was 55-60%. Left atrium was severely dilated. Right atrium was severely dilated. There was mild to moderate mitral regurg. There was mild tricuspid regurg. Assessment & Plan 89-year-old female patient with history of atrial fibrillation on Coumadin, hypertension, irritable bowel syndrome, arthritis presented to the ER with complaint of worsening abdominal pain. Admitted for acute bowel obstruction secondary to suspected colon cancer. 1. Suspected colon cancer, unknown chronicity, under workup -s/p laparoscopic right hemicolectomy by Dr. Caldwell on 12/29. POD#2. - CT performed in the ER demonstrating small bowel obstruction secondary to concentric lesion in the ascending colon, suspicious for adenocarcinoma. Discussed results with patient and family and are aware it could represent a malignancy -Colonoscopy was done 12/25. Biopsy pending. -2 units of FFPs were given prior to the colonoscopy on 12/24. One dose of Vitamin K 10mg IV was given on 12/26. -Post-op pain management and antibiotics per surgery. Transition to PO Tylenol today and PRN Dilaudid 0.5mg. -Flagyl was d/c today. Patient also received 2 doses of Ancef post-op. -diet advanced to soft and can resume PO meds per surgery. -Wean off TPN tonight. -Patient will be transferred down to [facility]. 2. Acute bowel obstruction secondary to concentric lesion in the ascending colon, present on admission, resolved. -Patient presented with worsening abdominal pain and nausea, which improved after bowel movements on 12/23/16. Patient previously seen by Dr. Cisneros of GI with plan for colonoscopy -NG tube was D/C on 12/25. -IV Tylenol and Dilaudid available for pain management -PICC line placed 12/26. TPN started at 2100 on 12/26. 3. Acute leukocytosis due to SBO, present on admission, improved. -Patient had mild leukocytosis 11.5, neutrophils 70.0 initially. -WBC increased slightly at POD#1, likely stress reaction. Trending down today. -Will continue to monitor signs and symptoms of infection. 4. Chronic atrial fibrillation anticoagulated with Coumadin, present on admission, stable -Rate controlled. Home Verapamil was d/c yesterday due to no PO med. Continue Diltiazem 10mg IV Q6H. -Last echo done in 2013 -Patient was on warfarin, which then changed to heparin drip before the surgery. - Per surgery's recommendation, will bridge Warfarin with heparin today. - Warfarin dosing per pharmacy. Avoid supratherapeutic INR. 5. Chronic hypertension, stable. -Furosemide 40mg PO daily was discontinued after surgery due to NPO status and patient's low blood pressure. -Will resume Furosemide today due to increased pedal edema. -BP has been stable. Continue to monitor BP. 6. Acute cystitis, not present on admission, active. - Urine culture grew E. coli that is pansensitive. - Patient is asymptomatic, but given her risks of infection, will start Ceftriaxone IV for 3 days. Should D/C Ceftriaxone on Tuesday 01/02. 7. Obstructive sleep apnea managed with CPAP, stable, present on admission, ongoing -On O2 supplement. 8. Restless leg syndrome, chronic, active. -Patient reports no improvement with home dose Pramipexole, but improvement on Dilaudid. -Can resume PO Pramipexole. -PRN Dilaudid available. -Continue to monitor PCP: Gastroenterology: Dr. Cisneros Curriculum Development Coordinator: Dr. Rascon CODE STATUS: Full code disposition: Pending hospital course and surgery. Pain Evaluation: Adequate Pain Control VTE Prophylaxis: SCDs, Other (Heparin drip) VTE Mechanical Devices: Intermittant Pneumatic CD Resuscitation Status: CPR: Attempt Resuscitation Attending Statement The patient was seen and examined together with Dr. Veronica on 12/31/2016 and I agree with the history, exam and plan as outlined in the note above. . Jairo Veronica 11, 2017 07:24 Alvarado Mcqueen MD Dec 31, 2016 17:20
[2016-12-31] MEDS: Verapamil SR 180 mg ER12 Tablet PO SCH (10:23)
--- NOTE | 2016-12-31 11:01 | PCM.PNSURG ---
Subjective Date of Service: Dec 31, 2016 Visit Information: Lap R Hemicolectomy 12/30/2016 Post-Op Day # 2 Date of Admission: Dec 23, 2016 at 03:25 Hospital Day # 9 Subjective: Had BM, hungry, feels good Objective Vital Sign- Last 8 Hours Date Time Temp Pulse Resp B/P Pulse Ox O2 Delivery O2 Flow Rate FiO2 12/31/16 09:24 87 12/31/16 08:15 36.6 90 18 139/81 95 Room Air 12/31/16 05:54 90 12/31/16 04:10 36.8 89 142/82 96 Room Air Intake and Output- Last 8 Hour 12/31/16 Cumulative From/Thru 07:00 12/23/16 00:55 - 12/31/16 06:11 Intake Total 250 ml 80695 ml Output Total 400 ml 53560 ml Balance -150 ml 2807 ml Intake Oral 250 ml 5880 ml IV Total 24257 ml TPN/PPN 485 ml FFP 464 ml Output Urine Total 400 ml 15481 ml Stool Total 200 ml Urine/Stool Mix 2600 ml Gastric Drainage Total 800 ml Estimated Blood Loss 30 ml # Voids 11 # Bowel Movements 16 Abdomen: Soft, Other (Incisions C/D/I) Result Diagram: 12/31/16 0320 12/31/16 0320 Assessment & Plan Impression Doing well Problems: Plan Soft diet Ambulate Wean off TPN Okay to transtion of IV pain meds later today if tolerating diet well Okay to start Warfain and other oral meds today Avoid supratherapeutic anticoagulation Might be ready to go home Monday Desmond Forrester MD Dec 31, 2016 11:01
[2016-12-31] MEDS: cefTRIAXone Inj 2,000 MG in Dextrose 5% Minibag Plus 50 ML IV SCH (11:35)
--- NOTE | 2016-12-31 12:36 | NUR ---
NUTRITION FOLLOW-UP: ASSESS: 89 YO female admitted with bowel obstruction. Colonoscopy showed probable colon cancer with partial small bowel obstruction; POD #2 following laparoscopic-assisted right hemicolectomy, lysis of adhesions, liver biopsy. TPN initiated 3/ as supplemental nutrition to help improve nutrition status prior to surgery. Order received to discontinue TPN today after taper, as diet has been advanced to mechanical soft, and pt. had large BM today. Surgery optimistic and tentatively plans to discharge patient Tuesday 01/02. PMHX: Afib, HTN, HLD, IBS. LABS: Cr 0.37, Glu 103, Ca 8.1. MEDS:Reviewed. Coumadin, Lasix. GI: BM x 1 today. SKIN: Owen 16. WTS: 61.9 kg, BMI 22.0 kg/m2. Admit wt 57.6kg Family reporting progressive wt loss. Per chart review, wt has been stable x 1year. DIET: Mechanical soft. PO intake not yet recorded; however, patient tolerated clear liquid diet well. TPN DISCONTINUED AFTER TODAY'S BAg Dex, 85g AA and 55g lipids to provide 1790 kcal and 85 g pro, sufficient to meet 100% nutrient needs). EST. NEEDS: (colon ca, wt gain): Kcals: 1780-2075kcal/day (30-35kcal/kg) Pro: 70-90g/day (1.2-1.5g/kg) Fluid: ~1500-1780mlday (25-30ml/kg) NUTRITION DIAGNOSIS: 1) Inadequate oral intake related to altered GI function as evidence by current CL diet order and partial SBO - RESOLVING. 2) Increased nutrient needs related to altered GI function as evidence by new colon ca diagnosis and colectomy surgery soon - PERSISTS. NUTRITION INTERVENTION: 1)Will add supplements to trays. MONITOR / EVAL: PO intake / tolerance, labs, diet advance, wt, GI, PO intake, POC, nutrition status. Will continue to follow per high nutrition risk guidelines.
--- NOTE | 2016-12-31 18:00 | NUR ---
Activity / Pain/ Diet/ Bowel: Patient ambulating in room to BR and in halls X3. c/o 4/10 pain to abdomen this morning, Dilaudid 1mg IVP was administered and reported pain 0/10 at reassessment. This afternoon pt reported abdomen 2/10 discomfort/tender and stated it was tolerable. Diet was advanced to soft and is tolerating it well. No reports of N/V/D. BM X2 soft formed.
[2016-12-31] MEDS: Heparin 25K Unit/500mL 0.45 NS 25,000 UNIT in IV Premix 1 EACH IV SCH (18:34)
--- NOTE | 2016-12-31 19:57 | NUR ---
Transfer Pt transferred to [facility] room 1021 at 1945 in bed on remote tele. Report called to Dina Webster RN ahead, as well as update given at bedside.
[2016-12-31] MEDS: Total Parenteral Nutrition 1 BAG IV SCH (21:00)
[2017-01-01] VITALS (8 sets, daily range): BP systolic 100–130; BP diastolic 62–82; PULSE 62–113; RESP 17–20; O2SAT 91–98
--- NOTE | 2017-01-01 | NUR ---
transfer from PCU Alert, rates incisional pain 3 with movement. Abd soft, no nausea, tolerating PO. TPN completed per order and DC'd @ 2200. Cardiac heparin gtt infusing at 975 units/hr, PTT @ 2200 72.1 within range, no changes made.
[2017-01-01 04:55] LABS: BASOPHILS % (AUTO) 0.5 % (0-3); EOSINOPHILS % (AUTO) 6.4 % (0-5); MONOCYTES % (AUTO) 13.1 % (4-12); Mean Corpuscular Hemoglobin 25.5 pg (27.0-35.0); Mean Corpuscular Volume 83.7 fL (81-100); NEUTROPHILS % (AUTO) 48.3 % (40-74); Platelet Count 324 bil/L (150-400)
[2017-01-01 05:12] LABS: INR 1.1 ratio
--- NOTE | 2017-01-01 06:00 | NUR ---
Heparin gtt PTT 0530 = 53.0 Rate increased by 25 units per hr. See heparin intervention. Next PTT draw per protocol @ 4685 today.
--- NOTE | 2017-01-01 07:31 | PCM.PHAPRO ---
Progress Jan 01-Dec 1.13 1.10 #VALUE! -0.03 5 mg 5 mg Nikos Gale Jan 01, 2017 07:31
[2017-01-01] MEDS: Verapamil SR 180 mg ER12 Tablet PO SCH (08:54)
--- NOTE | 2017-01-01 10:48 | PCM.PNSURG ---
Subjective Date of Service: Jan 01, 2017 Visit Information: Lap R Hemicolectomy 12/30/2016 Post-Op Day # 3 Date of Admission: Dec 23, 2016 at 03:25 Hospital Day # 10 Objective Vital Sign- Last 8 Hours Date Time Temp Pulse Resp B/P Pulse Ox O2 Delivery O2 Flow Rate FiO2 01/01/17 10:28 36.7 103 17 125/82 98 Nasal Cannula 1.00 01/01/17 08:59 113 01/01/17 05:49 36.9 74 18 100/62 98 Room Air Intake and Output- Last 8 Hour 01/01/17 Cumulative From/Thru 07:00 12/23/16 00:55 - 01/01/17 05:49 Intake Total 200 ml 31776 ml Output Total 450 ml 98763 ml Balance -250 ml 3450 ml Intake Oral 200 ml 6800 ml IV Total 59220 ml TPN/PPN 485 ml FFP 464 ml Output Urine Total 450 ml 69325 ml Stool Total 200 ml Urine/Stool Mix 2600 ml Gastric Drainage Total 800 ml Estimated Blood Loss 30 ml # Voids 2 13 # Bowel Movements 1 19 Abdomen: Soft, Other (Incision C/D/I) Result Diagram: 01/01/17 0445 01/01/17 0445 Assessment & Plan Impression Doing great Problems: Plan Wean off O2 Okay to discharge home - likely tomorrow Follow up with Dr. Caldwell in 2 weeks Desmond Forrester MD Jan 01, 2017 10:48
[2017-01-01] MEDS: cefTRIAXone Inj 2,000 MG in Dextrose 5% Minibag Plus 50 ML IV SCH (11:44)
[2017-01-01] MEDS ORDERED: 0.9% Sodium Chloride 100 ML ONE (11:45)
--- NOTE | 2017-01-01 12:35 | PCM.PNMED ---
Subjective Date of Service Jan 01, 2017 Subjective Patient was seen and examined at bedside today. Patient denies any chest pain, shortness of breath, nausea, vomiting, diarrhea. Patient does complain of acute on chronic back pain which seemed to respond well to only routine. Nursing also reports that the patient has been running tachycardic in the 160s with activity but the patient remains asymptomatic Exam Vital Signs Vital Sign - Last Date Time Temp Pulse Resp B/P Pulse Ox O2 Delivery O2 Flow Rate FiO2 01/01/17 10:28 36.7 103 17 125/82 98 Nasal Cannula 1.00 Intake and Output 12/31/16 12/31/16 01/01/17 Cumulative From/Thru 15:00 23:00 07:00 12/23/16 00:55 - 01/01/17 05:49 Intake Total 2293 ml 200 ml 47034 ml Output Total 1400 ml 450 ml 08496 ml Balance 893 ml -250 ml 3450 ml Intake Oral 720 ml 200 ml 6800 ml IV Total 1573 ml 31139 ml TPN/PPN 485 ml FFP 464 ml Output Urine Total 1400 ml 450 ml 76428 ml Stool Total 200 ml Urine/Stool Mix 2600 ml Gastric Drainage Total 800 ml Estimated Blood Loss 30 ml # Voids 2 13 # Bowel Movements 2 1 19 Exam Physical Exam: GEN: Patient was awake, alert, responding appropriately to questions HEENT: PERRLA, EOMI, Neck soft supple, trachea midline, nomocephalic/atraumatic CV: +S1/S2, irregular, tachycardic, no murmurs auscultated Respiratory: Decreased breath sounds bilaterally, no wheezes, rales, rhonchi GI: +bowel sounds x4, soft, compressible, non TTP EXT: no c/c/e Neuro: CN II-XII grossly intact Psych: mood and affect were appropriate IVs and Medications Medications Reviewed: Medications were reviewed in detail Lab and Diagnostics Result Diagram: 01/01/17 1155 01/01/17 0445 X-Rays, CTs and MRIs PROCEDURE: CT ABDOMEN AND PELVIS WITH CONTRAST IMPRESSION: 1. 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 Approved by: Brynn Marques M.D. on 12/23/2016 at 8:48 PROCEDURE: X-RAY ACUTE ABDOMINAL SERIES IMPRESSION: Persistent small bowel obstructive pattern. Dictated by: Marcial Griffith RRA Interpreted: Brynn Marques MD on 12/23/2016 at 9:22 Transcribed by: JONATAN on 12/23/2016 at 9:23 Additional Diagnostics Most recent echocardiogram was 03/11/2014 -"EF was 55-60%. Left atrium was severely dilated. Right atrium was severely dilated. There was mild to moderate mitral regurg. There was mild tricuspid regurg. Assessment & Plan 89-year-old female patient with history of atrial fibrillation on Coumadin, hypertension, irritable bowel syndrome, arthritis presented to the ER with complaint of worsening abdominal pain. Admitted for acute bowel obstruction secondary to suspected colon cancer. Suspected colon cancer, unknown chronicity, under workup -s/p laparoscopic right hemicolectomy by Dr. Caldwell on 12/29. POD#2. - CT performed in the ER demonstrating small bowel obstruction secondary to concentric lesion in the ascending colon, suspicious for adenocarcinoma. Discussed results with patient and family and are aware it could represent a malignancy -Colonoscopy was done 12/25. Biopsy pending. -2 units of FFPs were given prior to the colonoscopy on 12/24. One dose of Vitamin K 10mg IV was given on 12/26. -Post-op pain management and antibiotics per surgery. Transition to PO Tylenol and PRN Dilaudid 0.5mg. -Flagyl was d/c. 12/31/16. Patient also received 2 doses of Ancef post-op. -diet advanced to soft and can resume PO meds per surgery. -Wean off TPN tonight. -Patient will be transferred down to [facility]. Tachycardia (with activity) -Start metoprolol 12.5 mg twice a day -Patient most likely has deconditioning consult PT -We will continue to monitor Acute barbara l obstruction secondary to concentric lesion in the ascending colon , present on admission, resolved. -Patient presented with worsening abdominal pain and nausea, which improved after bowel movements on 12/23/16. Patient previously seen by Dr. Cisneros of GI with plan for colonoscopy -NG tube was D/C on 12/25. -PO Tylenol and prn Dilaudid available for pain management -PICC line placed 12/26. TPN started at 2100 on 12/26. Acute leukocytosis due to SBO, present on admission, improved. -Patient had mild leukocytosis 11.5, neutrophils 70.0 initially. -WBC increased slightly at POD#1, likely stress reaction. Trending down today. -Will continue to monitor signs and symptoms of infection. Chronic atrial fibrillation anticoagulated with Coumadin, present on admission, stable -Rate controlled. -Restart home dose of verapamil 180 mg daily discontinue Diltiazem 10mg IV Q6H. -Start metoprolol 12.5 mg twice a day -Last echo done in 2013 -Patient was on warfarin, which then changed to heparin drip before the surgery. - Per surgery's recommendation, will bridge Warfarin with heparin 12/31/16. - Warfarin dosing per pharmacy. Avoid supratherapeutic INR. Chronic hypertension, stable. -Furosemide 40mg PO daily was discontinued after surgery due to NPO status and patient's low blood pressure. -Continue Furosemide pedal edema improved. -BP has been stable. Continue to monitor BP. Acute cystitis, not present on admission, active. - Urine culture grew E. coli that is pansensitive. - Patient is asymptomatic, but given her risks of infection, continue Ceftriaxone IV for 3 days. Should D/C Ceftriaxone on Tuesday 01/02. Obstructive sleep apnea managed with CPAP, stable, present on admission, ongoing -On O2 supplement. Restless leg syndrome, chronic, active. -Patient reports no improvement with home dose Pramipexole, but improvement on Dilaudid. -Can resume PO Pramipexole. -PRN Dilaudid available. -Continue to monitor Disposition: Patient seems to be improving daily we will continue to monitor the patient's heart rate and blood pressure. If all remains well controlled and the patient remained stable the patient may be able to be discharged tomorrow after her last dose of antibiotics. PCP: Gastroenterology: Dr. Cisneros Paint Line Production Supervisor: Dr. Rascon CODE STATUS: Full code disposition: Pending hospital course and surgery. VTE Mechanical Devices: Intermittant Pneumatic CD Time spent Greater than 35 minutes Roselyn Narvaez DO Jan 01, 2017 12:35
--- NOTE | 2017-01-01 18:06 | NUR ---
Ambulation / Tele / Heparin Pt up with FWW SBA. Walking well although gets tacky and at one point was up into the 160s this morning. Per television parts tester Afib 70-90s most of time and tachy with exertion. Heparin Drip running @ 1025units per he. Next check 1900. Care continues
--- NOTE | 2017-01-01 20:30 | NUR ---
Heparin PTT at 59.5, rounded up to 60 puts pt in therapeutic range; no change to Heparin drip rate. Recheck PTT in 6 hours and adjust per protocol.
[2017-01-01] MEDS: Heparin 25K Unit/500mL 0.45 NS 25,000 UNIT in IV Premix 1 EACH IV SCH (23:06)
[2017-01-02 03:02] LABS: Mean Corpuscular Volume 81.8 fL (81-100)
[2017-01-02 03:28] LABS: INR 1.09 ratio
--- NOTE | 2017-01-02 03:30 | NUR ---
Heparin gtt / activity Heparin adjusted per protocol, rate increased, next PTT at 0930. Pt has been very restless all night, unable to sleep more than short amounts. Frequent urination, c/o restless legs despite receiving all available meds for sleep and leg relief. Supportive care provided, hourly rounding ongoing.
[2017-01-02] MEDS: Heparin 25K Unit/500mL 0.45 NS 25,000 UNIT in IV Premix 1 EACH IV SCH (03:45)
[2017-01-02 05:19] VITALS: BP 136/81; PULSE 95; RESP 20; O2SAT 97
[2017-01-02] MEDS: HYDROmorphone 1 mg/mL Inj IVPUSH PRN (07:02)
--- NOTE | 2017-01-02 08:17 | PCM.PNSURG ---
Subjective Date of Service: Jan 02, 2017 Visit Information: Reason for Visit Bowel Obstruction/Afib With Rvr Surgery/Surgery Date Post-Op Day #4 Date of Admission: Dec 23, 2016 at 03:25 Hospital Day # Subjective: Eating solid foods with no nausea or vomiting. Frequent soft bowel movements. Ambulatory in the hallway with a front wheeled walker. No surgical site pain complaints, complains of restless leg syndrome. Using IV analgesia for restless leg syndrome. Postop General: Other (as above) Gastrointestinal: Tolerating Oral Feedings, No N/V, Passing Stool Pain Management: No or Minimal Pain Postop Activity: Ambulates with Assist Device Objective Vital Sign- Last 8 Hours Date Time Temp Pulse Resp B/P Pulse Ox O2 Delivery O2 Flow Rate FiO2 01/02/17 05:19 36.8 95 20 136/81 97 Nasal Cannula 1.00 Intake and Output- Last 8 Hour 01/02/17 Cumulative From/Thru 07:00 12/23/16 00:55 - 01/02/17 06:00 Intake Total 546 ml 41797 ml Output Total 1600 ml 27442 ml Balance -1054 ml 3219 ml Intake Oral 300 ml 8100 ml IV Total 246 ml 35956 ml TPN/PPN 485 ml FFP 464 ml Output Urine Total 1200 ml 21237 ml Stool Total 400 ml 600 ml Urine/Stool Mix 2601 ml Gastric Drainage Total 800 ml Estimated Blood Loss 30 ml # Voids 6 20 # Bowel Movements 2 21 General: Alert, Cooperative, No Acute Distress Lungs: Clear to Auscultation Heart: Murmur (grade 3/6 systolic murmur), Other (irregular) Abdomen: Soft, Non-distended SURGICAL WOUND : Wound General Appearence: Steri Strips, Sutures, Intact, Well Approximated, No Erythema, No Discharge Extremities: Thigh&Calf Soft/Nontender Neuro: Normal Speech Catheters: None Result Diagram: 01/02/17 0245 01/02/17 0245 Assessment & Plan Impression Primary diagnoses: 1. Right colon cancer pending final pathology. POD #4, stable for discharge. 2. Hospital-acquired acute Escherichia coli cystitis. Other diagnoses: 1. Atrial fibrillation on anticoagulation with Coumadin 2. Hypertension 3. Hyperlipidemia 4. Mitral regurgitation 5. Chronic cystitis 6. Irritable bowel syndrome 7. Restless leg syndrome 8. Arthritis 9. 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 Closed fracture of left femoral neck-2016 Problems: Plan Surgically stable for discharge. Follow-up with Dr. Caldwell in 2 weeks. Pain Management: Oral Tylenol VTE Prophylaxis: Sub-Q Heparin (Unfractionated) Resuscitation Status: CPR: Attempt Resuscitation copies to: Manju Monge MD, Fred H PA-C Jan 02, 2017 08:17
--- NOTE | 2017-01-02 09:20 | NUR ---
Blood in BM Pt has liquid BM with blood noted. Guaiac sent as protocol. Hospitalist MD aware, Sx MD aware. Heparin Stopped at this time. Aptt STAT ordered. Vitals stable, asymptomatic, denies CP, SOB, Nausea, Pain. Care continues
[2017-01-02] MEDS: BusPIRone 15 mg Dividose Tablet PO SCH (09:41)
[2017-01-02] MEDS: Verapamil SR 180 mg ER12 Tablet PO SCH (09:42)
[2017-01-02 10:43] VITALS: BP 106/67; PULSE 90; RESP 24; O2SAT 95
[2017-01-02 10:49] VITALS: PULSE 104
[2017-01-02] MEDS: cefTRIAXone Inj 2,000 MG in Dextrose 5% Minibag Plus 50 ML IV SCH (11:36)
--- NOTE | 2017-01-02 13:05 | NUR ---
Restless legs / Bloody BM X 4 Pt complains of Restless legs frequently. Seems very anxious when this happens and wants pain medications in order to help the issue. Mirapex does not seem to work. MD notified. Bloody BMs continue. Pt incontinent of BMs in brief as she can't make ti to bathroom in time. Care continues
--- NOTE | 2017-01-02 13:34 | PCM.PNMED ---
Subjective Date of Service Jan 02, 2017 Subjective Patient was seen and examined at bedside today. Patient denies any chest pain, shortness of breath, nausea, vomiting, diarrhea. This morning the patient was doing well and was clinically stable however after rounds this morning the patient was noted to have a bloody bowel movement. All anticoagulation has been stopped at this time. Patient remains clinically stable patient denies any shortness of breath, lightheadedness, dizziness, chest pain. Exam Vital Signs Vital Sign - Last Date Time Temp Pulse Resp B/P Pulse Ox O2 Delivery O2 Flow Rate FiO2 01/02/17 10:49 104 01/02/17 10:43 36.5 24 106/67 95 Room Air 01/02/17 05:19 1.00 Intake and Output 01/01/17 01/01/17 01/02/17 Cumulative From/Thru 15:00 23:00 07:00 12/23/16 00:55 - 01/02/17 06:00 Intake Total 221 ml 1203 ml 546 ml 79700 ml Output Total 601 ml 1600 ml 07021 ml Balance 221 ml 602 ml -1054 ml 3219 ml Intake Oral 1000 ml 300 ml 8100 ml IV Total 221 ml 203 ml 246 ml 36946 ml TPN/PPN 485 ml FFP 464 ml Output Urine Total 600 ml 1200 ml 19341 ml Stool Total 400 ml 600 ml Urine/Stool Mix 1 ml 2601 ml Gastric Drainage Total 800 ml Estimated Blood Loss 30 ml # Voids 1 6 20 # Bowel Movements 2 21 Exam Physical Exam: GEN: Patient was awake, alert, responding appropriately to questions HEENT: PERRLA, EOMI, Neck soft supple, trachea midline, nomocephalic/atraumatic CV: irregular, systolic murmur auscultated Respiratory: CTAB, no wheezes, rales, rhonchi GI: +bowel sounds x4, soft, compressible, non TTP EXT: no c/c/e Neuro: CN II-XII grossly intact Psych: mood and affect were appropriate IVs and Medications Medications Reviewed: Medications were reviewed in detail Lab and Diagnostics Result Diagram: 01/02/17 1155 01/02/17 0245 X-Rays, CTs and MRIs PROCEDURE: CT ABDOMEN AND PELVIS WITH CONTRAST IMPRESSION: 1. 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 Approved by: Brynn Marques M.D. on 12/23/2016 at 8:48 PROCEDURE: X-RAY ACUTE ABDOMINAL SERIES IMPRESSION: Persistent small bowel obstructive pattern. Dictated by: Marcial Griffith [facility] Interpreted: Brynn Marques MD on 12/23/2016 at 9:22 Transcribed by: JONATAN on 12/23/2016 at 9:23 Additional Diagnostics Most recent echocardiogram was 03/11/2014 -"EF was 55-60%. Left atrium was severely dilated. Right atrium was severely dilated. There was mild to moderate mitral regurg. There was mild tricuspid regurg. Assessment & Plan 89-year-old female patient with history of atrial fibrillation on Coumadin, hypertension, irritable bowel syndrome, arthritis presented to the ER with complaint of worsening abdominal pain. Admitted for acute bowel obstruction secondary to suspected colon cancer. Acute Hematochezia most likely secondary to heparin -Discontinue heparin and warfarin -Blood pressure currently stable 106/67 -H&H is stable currently 8.8/28.4 -Repeat H&H in 6 hours -We will continue to monitor Suspected colon cancer, unknown chronicity, under workup -s/p laparoscopic right hemicolectomy by Dr. Caldwell on 12/29. POD#4. - CT performed in the ER demonstrating small bowel obstruction secondary to concentric lesion in the ascending colon, suspicious for adenocarcinoma. Discussed results with patient and family and are aware it could represent a malignancy -Colonoscopy was done 12/25. Biopsy pending. -2 units of FFPs were given prior to the colonoscopy on 12/24. One dose of Vitamin K 10mg IV was given on 12/26. -Post-op pain management and antibiotics per surgery. Transition to PO Tylenol and PRN Dilaudid 0.5mg. -Flagyl was d/c. 12/31/16. Patient also received 2 doses of Ancef post-op. -diet advanced to soft and can resume PO meds per surgery. -TPN discontinued 12/31/16 Tachycardia (with activity) -Increase metoprolol to 25 mg twice a day -Patient most likely has deconditioning consult PT -We will continue to monitor Acute barbara l obstruction secondary to concentric lesion in the ascending colon , present on admission, resolved. -Patient presented with worsening abdominal pain and nausea, which improved after bowel movements on 12/23/16. Patient previously seen by Dr. Cisneros of GI with plan for colonoscopy -NG tube was D/C on 12/25. -PO Tylenol and prn Dilaudid available for pain management -PICC line placed 12/26. TPN started at 2100 on 12/26. Acute leukocytosis due to SBO, present on admission, improved. -Patient had mild leukocytosis 11.5, neutrophils 70.0 initially. -WBC increased slightly at POD#1, likely stress reaction. Trending down today. -Will continue to monitor signs and symptoms of infection. Chronic atrial fibrillation anticoagulated with Coumadin, present on admission, stable -Rate controlled. -Continue home dose of verapamil 180 mg daily -Increase metoprolol to 25 mg twice a day -Last echo done in 2013 -Patient was on warfarin, which then changed to heparin drip before the surgery. - Per surgery's recommendation, will bridge Warfarin with heparin 12/31/16. - Warfarin dosing per pharmacy. Avoid supratherapeutic INR. Chronic hypertension, stable. -Furosemide 40mg PO daily was discontinued after surgery due to NPO status and patient's low blood pressure. -Continue Furosemide pedal edema improved. -BP has been stable. Continue to monitor BP. Acute cystitis, not present on admission, active. - Urine culture grew E. coli that is pansensitive. - Patient is asymptomatic, but given her risks of infection, continue Ceftriaxone IV for 3 days. Should D/C Ceftriaxone on Tuesday 01/02. Obstructive sleep apnea managed with CPAP, stable, present on admission, ongoing -On O2 supplement. Restless leg syndrome, chronic, active. -Patient reports no improvement with home dose Pramipexole, but improvement on Dilaudid. -Discontinue PO Pramipexole. -Discontinue PRN Dilaudid available. -Patient to drink 4 ounces of tonic water daily -Start gabapentin 100 mg twice a day -Follow up TSH, folate, B12 labs -Continue to monitor Anxiety -Start BuSpar 15 mg daily -We will continue to monitor Hypoxemia -Patient has been requiring transient use of oxygen to maintain sats above the high 80s once patient is stable we will have respiratory evaluate the patient for possible home O2. Disposition: Patient was improving and is still clinically stable however the patient had a bowel movement today mostly secondary to anticoagulation. All anticoagulation has been stopped will follow-up with the patient's H&H later today and in the morning. Patient may be more likely candidate for eliquis for her atrial fib but we will consider this after the patient is stabilized and no longer bleeding. PCP: Gastroenterology: Dr. Cisneros Cell Attendant Helper: Dr. Rascon CODE STATUS: Full code disposition: Pending hospital course and surgery. VTE Prophylaxis: Sub-Q Heparin (Unfractionated) VTE Mechanical Devices: Intermittant Pneumatic CD Resuscitation Status: CPR: Attempt Resuscitation Time spent Greater than 35 minutes Roselyn Narvaez DO Jan 02, 2017 13:34
[2017-01-02 14:20] VITALS: BP 95/59; PULSE 73; RESP 24; O2SAT 98
[2017-01-02 20:00] VITALS: PULSE 84
[2017-01-02 20:04] VITALS: BP 109/62; PULSE 67; RESP 24; O2SAT 97
[2017-01-03] VITALS (7 sets, daily range): BP systolic 94–113; BP diastolic 56–72; PULSE 72–107; RESP 20–23; O2SAT 94–99
--- NOTE | 2017-01-03 05:14 | NUR ---
Sleep Given PRN sleep aid with HS meds per request- pt seems to be sleeping well throughout NOC. Daughter in room, no signs of anxiety. No PRN requested for pain or restless legs. No SOB, no GI distress, no BM so far. Care continues
[2017-01-03 06:43] LABS: Mean Corpuscular Hemoglobin 25.2 pg (27.0-35.0); Mean Corpuscular Volume 83.2 fL (81-100)
[2017-01-03 07:07] LABS: INR 1.14 ratio
[2017-01-03] MEDS: BusPIRone 15 mg Dividose Tablet PO SCH (09:02)
[2017-01-03] MEDS: Verapamil SR 180 mg ER12 Tablet PO SCH (09:03)
--- NOTE | 2017-01-03 09:46 | PCM.PNSURG ---
Subjective Visit Information: Reason for Visit Bowel Obstruction/Afib With Rvr Surgery/Surgery Date Post-Op Day #5 Date of Admission: Dec 23, 2016 at 03:25 Hospital Day # Subjective: Events from yesterday morning are noted. Bowel movement this morning is not bloody, "dark". Continues to eat solid foods with no nausea. Ambulatory in the room and hallway with the use of a walker, denies being lightheaded. Pain well controlled with oral Tylenol. Postop General: No Complaints Gastrointestinal: Good Appetite, Tolerating Oral Feedings, No N/V, Passing Stool Pain Management: PO (Tylenol) Postop Activity: Ambulates with Assist Device Objective Vital Sign- Last 8 Hours Date Time Temp Pulse Resp B/P Pulse Ox O2 Delivery O2 Flow Rate FiO2 01/03/17 05:54 36.6 91 23 94/56 96 Nasal Cannula 2.00 01/03/17 01:48 36.2 82 22 113/67 99 Nasal Cannula 2.00 Intake and Output- Last 8 Hour 01/03/17 Cumulative From/Thru 07:00 12/23/16 00:55 - 01/03/17 00:20 Intake Total 05990 ml Output Total 30722 ml Balance 3077 ml Intake Oral 06978 ml IV Total 09947 ml TPN/PPN 485 ml FFP 464 ml Output Urine Total 55005 ml Stool Total 1215 ml Urine/Stool Mix 2601 ml Gastric Drainage Total 800 ml Estimated Blood Loss 30 ml # Voids 20 # Bowel Movements 21 General: Alert, Cooperative, No Acute Distress Lungs: Clear to Auscultation Heart: Other (irregular) Abdomen: Soft, Non-tender, Non-distended SURGICAL WOUND : Wound General Appearence: Steri Strips, Sutures, Intact, Well Approximated, No Erythema, No Discharge Neuro: Normal Speech Catheters: None Result Diagram: 01/03/17 0538 01/03/17 0538 Assessment & Plan Impression Primary diagnoses: 1. Right colon cancer pending final pathology. POD # 5, stable for discharge when hemoglobin and hematocrit stabilize. 2. Hospital-acquired acute Escherichia coli cystitis. 3. Acute blood loss anemia related to anticoagulation. Hemoglobin 7.5, no plan to transfuse. Other diagnoses: 1. Atrial fibrillation on anticoagulation with Coumadin 2. Hypertension 3. Hyperlipidemia 4. Mitral regurgitation 5. Chronic cystitis 6. Irritable bowel syndrome 7. Restless leg syndrome 8. Arthritis 9. 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 Closed fracture of left femoral neck-2016 Problems: Plan 1. A discussion was held with the hospitalist: Transfusion will be avoided unless absolutely necessary. 2. Discharged by hospitalist when H&H was stable. 3. Follow-up in the office with Yoselyn Shay PA-C in 2 weeks. Pain Management: Oral Tylenol Resuscitation Status: CPR: Attempt Resuscitation Eliecer Toro PA-C Jan 03, 2017 09:46
[2017-01-03] MEDS: cefTRIAXone Inj 2,000 MG in Dextrose 5% Minibag Plus 50 ML IV SCH (11:31)
--- NOTE | 2017-01-03 12:33 | NUR ---
Social work note - Readiness for d/c. MINISTER OF RELIGION completed EMR review: Pt continues to show improvement - advancing diet, continues to be independent in the room. identifies that pt may be ready for home in 1-2 days if her H&H and vital signs continues to be stable. Pt will d/c home with [employer] for RN PT [employer]. Plan: Home with [employer] RN PT [employer] when medicaly stable. Family to transport. JO Espinoza
--- NOTE | 2017-01-03 13:50 | NUR ---
NUTRITION FOLLOW-UP: ASSESS:89 YO female admitted with bowel obstruction. Colonoscopy showed probable colon cancer with partial small bowel obstruction; POD #5 following laparoscopic-assisted right hemicolectomy, lysis of adhesions, liver biopsy. TPN initiated 12/26 as supplemental nutrition to help improve nutrition status prior to surgery. TPN was discontinued on 12/31. Pt with bloody BM 01/02 so anticoagulation has been held. Pt has been eating 50-100% of meals. PMHX: Afib, HTN, HLD, IBS. LABS: Reviewed. Alb 2.6, Cr .45, Ca 8.2 MEDS:Reviewed. GI: BM x 2 (01/02) WTS: 63.8 kg. Admit wt 57.6 kg Family reporting progressive wt loss. Per chart review, wt has been stable x 1 year. DIET: Mechanical soft. Impact advanced recovery and Gelatein all trays. PO 50-100% of meals. EST. NEEDS: (probable colon ca, wt gain): Kcals: 0142-8337 kcal/day (30-35 kcal/kg BW) Protein: 70-90 g/day (1.2-1.5 g/kg BW) NUTRITION DIAGNOSIS: 1.) Inadequate oral intake related to altered GI function as evidence by current CL diet order and partial SBO - RESOLVED. 2,) Increased nutrient needs related to altered GI function as evidence by likely new colon ca diagnosis and s/p colectomy surgery--PERSISTS. NUTRITION INTERVENTION: 1) Continue to send Impact adv. recovery until 01/05. If po intake is not adequate to meet needs at that time, supplement can be changed to ensure. 2.) Discontinue gelatein supplement as pt is no longer on clear liquids MONITOR / EVAL: PO intake, labs, weights, GI/nutrition status. Continue to follow per moderate nutrition risk guidelines.
--- NOTE | 2017-01-03 17:21 | PCM.PNMED ---
Subjective Date of Service Jan 03, 2017 Subjective Patient was seen and examined at bedside today. Patient denies any chest pain, shortness of breath, nausea, vomiting, diarrhea. Patient states that her restless leg syndrome has significantly improved and she was able to get some rest with any medications that she was taking yesterday. Exam Vital Signs Vital Sign - Last Date Time Temp Pulse Resp B/P Pulse Ox O2 Delivery O2 Flow Rate FiO2 01/03/17 13:57 36.7 72 22 95/60 94 Room Air 01/03/17 05:54 2.00 Intake and Output 01/02/17 01/02/17 01/03/17 Cumulative From/Thru 15:00 23:00 07:00 12/23/16 00:55 - 01/03/17 00:20 Intake Total 2103 ml 16323 ml Output Total 2245 ml 77498 ml Balance -142 ml 3077 ml Intake Oral 2103 ml 00666 ml IV Total 39873 ml TPN/PPN 485 ml FFP 464 ml Output Urine Total 1630 ml 60198 ml Stool Total 615 ml 1215 ml Urine/Stool Mix 2601 ml Gastric Drainage Total 800 ml Estimated Blood Loss 30 ml # Voids 20 # Bowel Movements 21 Exam Physical Exam: GEN: Patient was awake, alert, responding appropriately to questions HEENT: PERRLA, EOMI, Neck soft supple, trachea midline, nomocephalic/atraumatic CV: +S1/S2, irregular, systolic murmur auscultated Respiratory: CTAB, no wheezes, rales, rhonchi GI: +bowel sounds x4, soft, compressible, non TTP EXT: no c/c/e Neuro: CN II-XII grossly intact Psych: mood and affect were appropriate IVs and Medications Medications Reviewed: Medications were reviewed in detail Lab and Diagnostics Result Diagram: 01/03/1738 01/03/17 0538 X-Rays, CTs and MRIs PROCEDURE: CT ABDOMEN AND PELVIS WITH CONTRAST IMPRESSION: 1. 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 Approved by: Brynn Marques M.D. on 12/23/2016 at 8:48 PROCEDURE: X-RAY ACUTE ABDOMINAL SERIES IMPRESSION: Persistent small bowel obstructive pattern. Dictated by: Marcial Griffith [facility] Interpreted: Brynn Marques MD on 12/23/2016 at 9:22 Transcribed by: JONATAN on 12/23/2016 at 9:23 Additional Diagnostics Most recent echocardiogram was 03/11/2014 -"EF was 55-60%. Left atrium was severely dilated. Right atrium was severely dilated. There was mild to moderate mitral regurg. There was mild tricuspid regurg. Assessment & Plan 89-year-old female patient with history of atrial fibrillation on Coumadin, hypertension, irritable bowel syndrome, arthritis presented to the ER with complaint of worsening abdominal pain. Admitted for acute bowel obstruction secondary to suspected colon cancer. Acute Hematochezia most likely secondary to heparin -Discontinue heparin and warfarin -Blood pressure currently stable 106/67 -H&H is stable currently 8.8/28.4 -Repeat H&H this morning was 7.5/24.8 similar to the patient's 2:00 H&H of 7.5/ 24.5 -We will continue to monitor Hypotension -Blood pressure was 95/60 -We will hold patient's Lasix -Restart IV fluids at 75 mg an hour Suspected colon cancer, unknown chronicity, under workup -s/p laparoscopic right hemicolectomy by Dr. Caldwell on 12/29. POD#4. - CT performed in the ER demonstrating small bowel obstruction secondary to concentric lesion in the ascending colon, suspicious for adenocarcinoma. Discussed results with patient and family and are aware it could represent a malignancy -Colonoscopy was done 12/25. Biopsy pending. -2 units of FFPs were given prior to the colonoscopy on 12/24. One dose of Vitamin K 10mg IV was given on 12/26. -Post-op pain management and antibiotics per surgery. Transition to PO Tylenol and PRN Dilaudid 0.5mg. -Flagyl was d/c. 12/31/16. Patient also received 2 doses of Ancef post-op. -diet advanced to soft and can resume PO meds per surgery. -TPN discontinued 12/31/16 Tachycardia (with activity)- seems to be resolving -Continue metoprolol to 25 mg twice a day -Patient most likely has deconditioning consult PT -We will continue to monitor Acute bowel obstruction secondary to concentric lesion in the ascending colon, present on admission, resolved. -Patient presented with worsening abdominal pain and nausea, which improved after bowel movements on 12/23/16. Patient previously seen by Dr. Cisneros of GI with plan for colonoscopy -NG tube was D/C on 12/25. -PO Tylenol and prn Dilaudid available for pain management -PICC line placed 12/26. TPN started at 2100 on 12/26. Acute leukocytosis due to SBO, present on admission, improved. -Patient had mild leukocytosis 11.5, neutrophils 70.0 initially. -WBC increased slightly at POD#1, likely stress reaction. Trending down today. -Will continue to monitor signs and symptoms of infection. Chronic atrial fibrillation anticoagulated with Coumadin, present on admission, stable -Rate controlled. -Continue home dose of verapamil 180 mg daily -Continue Increase metoprolol to 25 mg twice a day -Last echo done in 2013 -Patient was on warfarin, which then changed to heparin drip before the surgery. - Per surgery's recommendation, will bridge Warfarin with heparin 12/31/16. - Warfarin dosing per pharmacy. Avoid supratherapeutic INR. Chronic hypertension, stable. -Furosemide 40mg PO daily was discontinued after surgery due to NPO status and patient's low blood pressure. -Hold Furosemide as patient is currently hypotensive Acute cystitis, not present on admission, active. - Urine culture grew E. coli that is pansensitive. - Patient is asymptomatic, but given her risks of infection, continue Ceftriaxone IV for 3 days. Should D/C Ceftriaxone on Tuesday 01/02. Obstructive sleep apnea managed with CPAP, stable, present on admission, ongoing -On O2 supplement. Restless leg syndrome, chronic, active. -Patient reports no improvement with home dose Pramipexole, but improvement on Dilaudid. -Discontinue PO Pramipexole. -Discontinue PRN Dilaudid available. -Patient to drink 4 ounces of tonic water daily -Start gabapentin 200 mg 3 times a day -Follow up TSH within normal range - Folate within normal range -B12 labs within normal range -Continue to monitor Anxiety -Continue BuSpar 15 mg daily -Continue Restoril 15 mg by mouth daily at bedtime -We will continue to monitor Hypoxemia -Patient has been requiring transient use of oxygen to maintain sats above the high 80s once patient is stable we will have respiratory evaluate the patient for possible home O2. Disposition: Patient was improving and is still clinically stable however the patient had a bowel movement today mostly secondary to anticoagulation. All anticoagulation has been stopped will follow-up with the patient's H&H later today and in the morning. Patient may be more likely candidate for eliquis for her atrial fib but we will consider this after the patient is stabilized and no longer bleeding. PCP: Gastroenterology: Dr. Cisneros Boiler Or Engine Operator: Dr. Rascon CODE STATUS: Full code disposition: Pending hospital course and surgery. VTE Mechanical Devices: Intermittant Pneumatic CD Resuscitation Status: CPR: Attempt Resuscitation Time spent Greater than 35 minutes Roselyn Narvaez DO Jan 03, 2017 17:21
[2017-01-03] MEDS: 0.9% Sodium Chloride 1,000 ML IV SCH (18:27)
--- NOTE | 2017-01-03 18:40 | NUR ---
Restless legs/PICC line Pt had pain 4/10 with restless legs during shift, used Gabapentin scheduled. Pt had no problems with AM dose, but with afternoon dose family stated they felt pt was overly sleepy and possibly confused. MD aware and will monitor. Care notes on medication printed out and given to family. PICC line unable to get return for blood, IV therapy called for help. Lab called for draw.
[2017-01-04 00:19] VITALS: BP 112/69; PULSE 66; RESP 20; O2SAT 95
[2017-01-04 04:19] VITALS: BP 136/71; PULSE 71; RESP 18; O2SAT 98
[2017-01-04 05:47] LABS: Mean Corpuscular Hemoglobin 25.1 pg (27.0-35.0); Mean Corpuscular Volume 82.9 fL (81-100)
[2017-01-04 06:06] LABS: INR 1.07 ratio
[2017-01-04] MEDS: 0.9% Sodium Chloride 1,000 ML IV SCH (06:11)
--- NOTE | 2017-01-04 06:28 | NUR ---
RLS/Pain Pt reports pain 6/10 related to restless legs after rec'd routine gabapentin and trazadone. REc'd prn tylenol and temazepam as PT states she can not sleep due to RLS. + effects achieved. 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
--- NOTE | 2017-01-04 08:07 | PCM.PNSURG ---
Subjective Date of Service: Jan 04, 2017 Visit Information: Reason for Visit: Bowel Obstruction/Afib with RVR; Right colon cancer. Date of Admission: Dec 23, 2016 at 03:25 Surgery: Laparoscopic-assisted right hemicolectomy with lysis of adhesions and liver biopsy. Date of Surgery: Dec 29, 2016 Hospital Day #13 . Subjective: Patient is doing well and would like to go home. Her appetite is good and she is having regular bowel movements. She is ambulating with a walker in her room and the hallway without difficulty. She denies bloody or dark stool, nausea, vomiting, dizziness, chest pain or palpitations, shortness of breath and abdominal pain. She states that her pain is minimal and well controlled. . Postop General: No Complaints Gastrointestinal: Good Appetite, No N/V, Passing Stool Pain Management: PO Postop Activity: Ambulates with Assist Device Objective Vital Sign- Last 8 Hours Date Time Temp Pulse Resp B/P Pulse Ox O2 Delivery O2 Flow Rate FiO2 01/04/17 04:19 36.3 71 18 136/71 98 Nasal Cannula 2.00 01/04/17 00:19 36.6 66 20 112/69 95 Nasal Cannula 2.00 Intake and Output- Last 8 Hour 01/04/17 Cumulative From/Thru 07:00 12/23/16 00:55 - 01/04/17 06:25 Intake Total 1129 ml 14748 ml Output Total 550 ml 46357 ml Balance 579 ml 4126 ml Intake Oral 300 ml 23481 ml IV Total 829 ml 81039 ml TPN/PPN 485 ml FFP 464 ml Output Urine Total 550 ml 27548 ml Stool Total 1215 ml Urine/Stool Mix 3101 ml Gastric Drainage Total 800 ml Estimated Blood Loss 30 ml # Voids 22 # Bowel Movements 3 24 General: Alert, Oriented X3 Lungs: Clear to Auscultation, Normal Air Movement Heart: No Murmurs/Rubs/Gallops, Other (irregularly irregular) Abdomen: Soft, Non-tender, Non-distended Extremities: Warm, Thigh&Calf Soft/Nontender Neuro: Grossly Neurologically Intact Result Diagram: 01/04/17 0530 01/04/17 0530 Lab & Micro Results: Laboratory Tests Test 01/03/17 18:15 01/04/17 05:30 Hemoglobin 8.0g/dL (12.0-15.6) 7.5g/dL (12.0-15.6) Hematocrit 26.6% (35.0-46.0) 24.8% (35.0-46.0) White Blood Count 7.5th/mm3 (3.8-10.1) Red Blood Count 2.99mil/mm3 (3.90-5.20) Mean Corpuscular Volume 82.9fL (81-100) Mean Corpuscular Hemoglobin 25.1pg (27.0-35.0) Mean Corpuscular Hemoglobin Concent 30.2% (32.0-37.0) Red Cell Distribution Width 14.9% (12.3-15.4) Platelet Count 340bil/L (150-400) Prothrombin Time 11.5sec (8.1-12.5) Prothromb Time International Ratio 1.07ratio Sodium Level 141mEq/L (134-144) Potassium Level 4.0mEq/L (3.5-5.2) Chloride Level 107mEq/L (97-108) Carbon Dioxide Level 24mmol/L (18-29) Blood Urea Nitrogen 16mg/dL (8-27) Creatinine 0.50mg/dL (0.57-1.00) Estimat Glomerular Filtration Rate 166mL/min (>59) Glucose Level 85mg/dL (60-99) Calcium Level 8.0mg/dL (8.5-10.1) Total Bilirubin 0.2mg/dL (0.0-1.2) Aspartate Amino Transf (AST/SGOT) 17U/L (0-50) Alanine Aminotransferase (ALT/SGPT) 11U/L (0-32) Alkaline Phosphatase 72U/L (25-165) Total Protein 4.9g/dL (6.4-8.4) Albumin 2.6g/dL (3.4-5.0) Microbiology 01/03/17 Stool Occult Blood (ROBBIE) - positive 12/29/16 Urine Culture - positive for Escherichia Coli . Diagnostics: CT ABDOMEN AND PELVIS WITH CONTRAST (12/28/16) FINDINGS: ABDOMEN: -Lung bases: Lung bases are clear. Heart size is normal. -Solid organs: Liver and spleen are normal in size and enhancement. Gallbladder surgically absent. There is mild intrahepatic biliary ductal dilatation and the common bile duct is mildly ectatic throughout its course. Pancreas enhances normally. No adrenal nodules. Kidneys demonstrate normal size and enhancement, without hydronephrosis. -Peritoneum and bowel: The stomach is fluid-filled. There is diffuse, moderate dilatation throughout the small bowel. A thickwalled, enhancing mass is present within the mid ascending colon. There is marked dilatation of the cecum. The downstream colon is decompressed. -Nodes and vessels: No retroperitoneal or mesenteric adenopathy by size criteria. Aorta and inferior vena cava are normal in size. There are scattered atheromatous calcifications throughout the aorta and iliac arteries bilaterally. -Miscellaneous: No ventral hernias. PELVIS: -Genitourinary: Bladder wall thickness is normal. The uterus is nonvisualized and may be surgically absent. -Miscellaneous: No inguinal hernias or adenopathy. -Bones: No suspicious bony lesions. No vertebral body compression fractures. Bilateral hip arthroplasties are grossly intact. 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 Dictated by: Brynn Marques M.D. on 12/23/2016 at 8:43 Approved by: Brynn Marques M.D. on 12/23/2016 at 8:48 X-RAY ACUTE ABDOMINAL SERIES (12/28/16) FINDINGS: -Surgical changes and devices: Bilateral hip arthroplasties and cholecystectomy clips. -Chest: Lungs are clear. Heart size is normal. No pleural effusions. No pneumoperitoneum. -Abdomen: Abnormal bowel gas pattern is present. Asymmetric dilatation of small bowel throughout the abdomen and pelvis with paucity of gas within the colon. No pneumatosis or bowel wall thickening. No pneumoperitoneum. -Bones: No suspicious bony lesions. IMPRESSION: Persistent small bowel obstructive pattern. Dictated by: Marcial Griffith [facility] Interpreted: Brynn Marques MD on 12/23/2016 at 9:22 Transcribed by: JONATAN on 12/23/2016 at 9:23 Approved by: Brynn Marques M.D. on 12/23/2016 at 14:53 . Assessment & Plan Impression 89 y/o female with a hx of Afib on Coumadin, irritable bowel syndrome, HTN, and recurrent UTIs who presented to [facility] on 12/22/2016 with the complaint of abdominal pain, nausea and unintentional weight loss of approximately 10 pounds in last year. Found to have a circumferential ascending colonic mass consistent with primary colonic neoplasm with resultant small bowel obstruction and marked cecal dilation on CT. Primary diagnosis: -Right colon cancer. Post-operative day#6 from laprascopic assisted right hemicolectomy w/lysis of adhesions and liver biopsy. Pathology results pending. -Acute blood loss anemia related to anticoagulation. H/H stabilized (7.4/24.8), pt remains asymptomatic w/no signs or symptoms of active bleeding. -Hospital-acquired acute Escherichia coli cystitis. Treated w/ IV Ceftriaxone IV. . Problems: Plan - H/H stable, 7.5/24.8. Surgically stable for discharge. - Discharge per Hospitalist team. - Follow-up in the office with Yoselyn Shay PA-C in 2 weeks. . VTE Prophylaxis: SCDs Resuscitation Status: CPR: Attempt Resuscitation Attending Statement: I agree with Dr. Posada's assessment and plan. Florence Posada DO Jan 04, 2017 08:07 Jeremy Caldwell MD Jan 11, 2017 10:49 11. Closed fracture of left femoral neck-2016 . Problems: Plan - H/H stable, 7.5/24.8. Patient remains asymptomatic, no signs/symptoms of active bleeding. Surgically stable for discharge. - Follow-up in the office with Yoselyn Shay PA-C in 2 weeks. . VTE Prophylaxis: SCDs Resuscitation Status: CPR: Attempt Resuscitation Florence Posada DO Jan 04, 2017 08:07
[2017-01-04] MEDS: cefTRIAXone Inj 2,000 MG in Dextrose 5% Minibag Plus 50 ML IV SCH (09:04)
[2017-01-04] MEDS: Verapamil SR 180 mg ER12 Tablet PO SCH (09:04)
[2017-01-04] MEDS: BusPIRone 15 mg Dividose Tablet PO SCH (09:05)
[2017-01-04 09:43] VITALS: BP 107/65; PULSE 82; RESP 17; O2SAT 93
--- NOTE | 2017-01-04 11:00 | PCM.DIMED ---
Discharge Instructions Date of Service Jan 04, 2017 Dates of Hospitalization Dec 23, 2016 at 03:25 Discharge Diagnosis Discharge Diagnosis Drug induced Hematochezia Hypotension Acute bowel obstruction secondary to Colon cancer s/p R hemicolectomy (12/29/16) Tachycardia Leukocytosis Chronic A. fib Acute cystitis Obstructive sleep apnea Restless leg syndrome chronic Anxiety Medication Instructions You have been prescribed gabapentin for restless leg syndrome is taking as needed for restless leg syndrome up to 3 times a day. If you are experiencing multiple episodes throughout the day then it will be better to take the medication regularly scheduled dosages times a day. You have also been prescribed Restoril which will help with restless leg as well as insomnia. Please take this medication only at night. Diet No restrictions Activity No restrictions Call your provider Fever or Chills, Shortness of breath, Bleeding, Chest pain Patient Instructions Please follow with your primary care provider to have a hemoglobin and hematocrit drawn in order to follow up with your anemia secondary to blood loss. If hemoglobin is above 8.5 please start taking the Elaquis that was prescribed. Is very important that you follow-up with this lab to ensure that the urine no longer bleeding. Follow-up Provider: Manju Monge MD Follow-up with PCP in: 1 week (if appointment has not already been made to call to make an appointment) Provider: Yoselyn Shay Follow-up in: 2 weeks (please follow up with surgery in 2 weeks and appointment has not already been made please call to make an appointment) Roselyn Narvaez DO Jan 04, 2017 11:00
[2017-01-04 11:02] VITALS: PULSE 94
[2017-01-04] MEDS ORDERED: TEMA15CA3 PO (11:14)
[2017-01-04] MEDS ORDERED: APIX5TAB PO (11:14)
[2017-01-04] MEDS ORDERED: BUSP15TA3 PO (11:14)
[2017-01-04] MEDS ORDERED: GABA100C PO (11:14)
--- NOTE | 2017-01-04 11:24 | PATH ---
SURGICAL PATHOLOGY Attending Physician:Jeremy Caldwell M.D. CASE STATUS: Signed Out PATIENT NAME: ERNESTINE ENGLISH PID: [id number] : 1925 DATE COLLECTED:12/29/2016 16:34 SPECIMEN: 1: Colon, Segment Resection for Tumor 2: Liver, Needle Biopsy CLINICAL HISTORY: RIGHT COLON MASS 1). RIGHT SUJATA 2). LIVER BIOPSY FINAL DIAGNOSIS: 1.RIGHT HEMICOLECTOMY SPECIMEN (18.5 CM OF COLON AND 2.1 CM OF TERMINAL ILEUM): INVASIVE ADENOCARCINOMA WITH THE FOLLOWING FEATURES: 1. TUMOR SITE: ASCENDING COLON. 2. TUMOR SIZE: 6.3 X 6.0 X 2.3 CM. 3. HISTOLOGIC TYPE: ADENOCARCINOMA. 4. HISTOLOGIC GRADE: HIGH GRADE (POORLY-DIFFERENTIATED). 5. GROSS TUMOR CONFIGURATION: INFILTRATIVE. 6. TUMOR PERFORATION: NOT IDENTIFIED. 7. DEPTH OF TUMOR INFILTRATION: TUMOR INVADES THROUGH THE MUSCULARIS PROPRIA AND THE SEROSAL SOFT TISSUE AND DIRECTLY INVADES AN ADHERENT ADJACENT PORTION OF ASCENDING COLON. 8.TUMOR INVOLVMENT OF SEROSAL SURFACE: POSITIVE. 9.PREEXISTING CHANGES AT PRIMARY SITE: NONE IDENTIFIED. 10.SURGICAL MARGINS: ALL WIDELY FREE OF TUMOR. 11.LYMPHATIC/VASCULAR CHANNEL INVASION: NEGATIVE. 12.PERINEURAL SPACE INVASION: NEGATIVE. 13.TUMOR DEPOSITS (DISCONTINUOUS EXTRAMURAL EXTENSION): NEGATIVE. 14.LYMPH NODES: 1 OF 27 LYMPH NODES POSITIVE FOR METASTATIC CARCINOMA WITHOUT EVIDENCE OF EXTRANODAL EXTENSION BY TUMOR. 15. OTHER: IMMUNOHISTOCHEMISTRY MISMATCH REPAIR PANEL PENDING, TO BE REPORTED BY ADDENDUM 16. PATHOLOGIC STAGE: pT4b, pN1. 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 NEGATIVE FOR MALIGNANCY. ICD10 CODE C18.2 GROSS DESCRIPTION: The specimens are received in formalin, labeled with the patient's name, and sublabeled as the following: (1) right sujata; (2) liver biopsy. (1) The specimen (15.5 x 10.5 x 6.5 cm) consists of terminal ileum (length-2.1 cm, proximal diameter-2.5 cm), ileocecal valve, cecum and ascending colon (length-18.5 cm, distal diameter-2.8 cm), and mesentery (up to 5.6 cm in depth). The appendix is absent. The ascending colon is adhered to itself creating a U-shape. The resection margins are received stapled and are 5.5 cm away from each other. The ascending colon and contains a vanegas-bennett and green friable circumferential mass (6.3 x 6.0 x 2.3 cm). The mass is less than 0.1 cm from the serosa, 4.5 cm from the proximal, 3.3 cm from the distal, and 5.3 cm from the radial resection margins. The mass extends through the colon wall into the mesentery and involving another portion of colon causing the colon to adhere to itself. The mass does not involve the ileocecal valve. The terminal ileum has bennett mucosa with normal folds. The cecum and ascending colon have pale-bennett mucosa with normal folds with focal flattening. No other nodules, masses or lesions are identified. Multiple possible lymph nodes (0.2 x 0.2 x 0.2 cm-1.6 x 0.8 x 0.6 cm) are identified. Ink code: black-resection margin; blue-serosa. Section code: (1A) proximal resection margin, longitudinally sectioned, home furnishings sales representative; (1B, 1C) distal resection margin with mass, longitudinally sectioned, home furnishings sales representative; (1D) serosa with mass; (1E) radial resection margin, home furnishings sales representative; (1F) ileocecal valve, home furnishings sales representative; (1G-1J) mass, home furnishings sales representative; (1K) mass with normal mucosa, longitudinally sectioned, home furnishings sales representative; (1L) cecum, home furnishings sales representative; (1M-1Q) multiple intact lymph nodes; (1R-1U) one lymph node in each cassette, bisected. (2) The specimen consists of multiple fragments of bennett semi-translucent tissue (0.6 x 0.2 x 0.1 cm in aggregate). Section code: (2A) tissue fragments. Specimen entirely submitted. 12/31/16 JM MICRO DESCRIPTION: See diagnosis. ICD-9 CODES: CPT CODES: 1: 45416 2: 52046, 44443, 02006, 43383, 51948 PROCEDURE/ADDENDA: Immunohistochemistry SPI Interpretation {Not Entered} Results-Comments 1.RIGHT HEMICOLECTOMY SPECIMEN: This addendum is issued to report the results of immunohistochemistry testing for mismatch repair proteins. RESULTS: MLH1: Loss of nuclear expression. MSH2: Intact nuclear expression. MSH6: Intact nuclear expression. PMS2: Loss of nuclear expression. Background nonneoplastic tissue with intact nuclear expression. IHC INTERPRETATION: Loss of nuclear expression of MLH1 and PMS2: testing for methylation of the MLH1 promoter and/or mutation of BRAF is indicated (the presence of a BRAF V600E mutation and/or MLH1 methylation suggests that the tumor is sporadic and germline evaluation is probably not indicated; absence of both MLH1 methylation and of BRAF V600E mutation suggests the possibility of Linares syndrome, and sequencing and/or large deletion/duplication testing of germline MLH1 may be indicated* * There are exceptions to the above IHC interpretations. These results should not be considered in isolation, and clinical correlation with genetic counseling is recommended to assess the need for germline testing. * This test was developed and its performance characteristics determined by [employer]. It has not been cleared or approved by the U.S. Food and Drug Administration. The FDA has determined that such clearance or approval is not necessary. This test is used for clinical purposes. It should not be regarded as investigational or for research. Electronically Signed Out Heather Devine MD Electronically Signed Out Willian Copeland MD [facility] [address], [place] [address] Technical component performed at [facility], [address], [place], [address]
--- NOTE | 2017-01-04 11:36 | NUR ---
Social Work: Discharge Data: Pt is on day 12 of hospitalization. EMR reviewed. D/C orders are in. CLINICAL COUNSELOR notified [employer], spoke with Theo Valdez, . Access given. No further d/c planning needs at this time. CLINICAL COUNSELOR will continue to follow if needs arise. Assessment: Pt who is independent at baseline. Plan: Pt will d/c home via POV today with resume [employer], RN/PT/[employer]PERATOR. No further d/c planning needs at this time. CLINICAL COUNSELOR will continue to follow if needs arise. LUIS MANUEL Fry
[2017-01-04] MEDS ORDERED: GABA-500 PO (12:02)
--- NOTE | 2017-01-04 12:24 | PCM.DC.MED ---
Discharge Summary Date of Service Jan 04, 2017 Dates of Hospitalization Date of Hospital Admission Dec 23, 2016 at 03:25 Date of Discharge: Jan 04, 2017 Providers: Admitting Physician: Анна Brunner DO Primary Care Physician: Manju Monge MD Attending Physician: Анна Brunner DO Diagnosis at Time of Discharge Diagnosis at Time of Discharge Drug induced Hematochezia Hypotension Acute bowel obstruction secondary to colon mass s/p R hemicolectomy (12/29/16) Tachycardia Leukocytosis Chronic A. fib Acute cystitis Obstructive sleep apnea Restless leg syndrome chronic Anxiety Consultations Gen. surgery Cardiology Procedures XRay, CTs & MRIs PROCEDURE: CT ABDOMEN AND PELVIS WITH CONTRAST IMPRESSION: 1. 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 Approved by: Brynn Marques M.D. on 12/23/2016 at 8:48 PROCEDURE: X-RAY ACUTE ABDOMINAL SERIES IMPRESSION: Persistent small bowel obstructive pattern. Dictated by: Marcial Griffith [facility] Interpreted: Brynn Marques MD on 12/23/2016 at 9:22 Transcribed by: JONATAN on 12/23/2016 at 9:23 Other Diagnostics Most recent echocardiogram was 03/11/2014 -"EF was 55-60%. Left atrium was severely dilated. Right atrium was severely dilated. There was mild to moderate mitral regurg. There was mild tricuspid regurg. Brief History This is an 89-year-old female with past medical history significant for atrial fibrillation on chronic Coumadin, hypertension, irritable bowel syndrome, past cholecystectomy who presented to [facility] on 12/22/2016 for nausea and abdominal pain. The patient's GI history is significant for chronic abdominal discomfort. The patient was seen in the GI clinic in May 2015 due to a change in bowel patterns, alternating diarrhea and constipation. The patient was diagnosed with narcotic bowel syndrome and EGD and colonoscopy were offered but patient declined. Her symptoms have progressed since this time and she states that now she has chronic diarrhea and bowel incontinence occurring several times per week. She also suffered from some unintentional weight loss. The patient most recently saw Dr. Cisneros on 12/14/2016 in GI clinic to review a CAT scan that showed irregularity with enhancement of colonic mucosa in the ascending colon. Dr. Cisneros felt the differential included cancer and spoke to patient about treatment such as surgery and possible chemotherapy. The patient did state at that time that she would like to pursue aggressive treatment. A colonoscopy was set up at that point to be performed on an outpatient basis. Beginning approximately one week ago the patient began to have worsening abdominal pain that was present in the right upper quadrant. The patient states that she had nausea associated but was not able to vomit. The patient continues to have multiple bowel movements per day that are described as diarrhea. She has had several episodes of incontinence as well. She denies any melena, hematochezia, hemoptysis, hematemesis, shortness of breath, chest pain or pressure, fevers, chills. Patient's initial vitals in the hospital were temperature 36.9 Celsius, pulse 104, respiratory rate 14, blood pressure 124/73 Her initial laboratory results showed a WBC of 11.7, hemoglobin 10.7, hematocrit 34.4, and platelets of 377. Her CMP showed a blood glucose of 135 but was otherwise without concerning abnormalities. Albumin was 3.2, lipase 21. Total bilirubin 0.4, AST 16, ALT 12 , alkaline phosphatase 94. Occult blood test was positive. 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 The patient was admitted to the hospital and NG tube was placed, NPO status, patient was given IV fluids, and Dilaudid was given for pain control. Today, the patient states that her abdominal pain is much improved. She continues to have multiple episodes of diarrhea today. She states that she has had bowel incontinence throughout the day. She denies any melena or hematochezia today. Hospital Course 89-year-old female patient with history of atrial fibrillation on Coumadin, hypertension, irritable bowel syndrome, arthritis presented to the ER with complaint of worsening abdominal pain. Admitted for acute bowel obstruction secondary to suspected colon cancer. The patient was admitted with leukocytosis secondary to an acute bowel obstruction from a mass suspicous for adenocarcinoma. The patient had a right hemicolectomy and the mass was sent to pathology for analysis. The patient seems to tolerate the procedure well. The patient was then bridged with heparin before restarting her Coumadin however the patient had hematochezia and then had an acute blood loss anemia. The patient's H&H is stable with hemoglobin and hematocrit remaining around 7.5/24.8. The patient does have chronic A. fib and with the potential colon cancer in a family history of CVA the patient is at higher risk for stroke. The patient should follow up with her primary care physician for repeat H&H within 1 week if the patient's H&H is 8.5 or higher then the patient should start Elocon 5 mg twice a day. The patient and her family would prefer to be on Eliquis as opposed to warfarin. The patient should follow-up with her division engineer within 3 weeks as well. Further management of the patient's anticoagulation should be discussed and managed by her division engineer. The patient did have several bouts of hypotension while here. The patient was placed on metoprolol 25 mg twice a day due to tachycardia and this was stopped and the patient should remain solely on the Cardizem and follow up with cardiology. The patient's Lasix has been stopped as her blood pressure has been low and the patient does look hemodynamically stable. The patient should follow-up with her division engineer for further management. The patient has a history of restless leg syndrome which has been very active during this admission. The patient has been started on gabapentin 3 times a day which seems to alleviate the patient's symptoms. The patient has been told to stop the Mirapex and to continue with the gabapentin. The patient states that sometimes after the gabapentin afternoon dose she feels a little "loopy" so the patient was told to take either 100 mg over 200 mg as her afternoon dose as indicated. The patient will take 200 mg in the morning and if she still has symptoms by the afternoon she can either take 100 or 200 mg. The patient has also been given Restoril to be taken daily at bedtime for restless leg syndrome and this seems to have been working well for the patient. The patient has had a significant amount of anxiety and was started on BuSpar 15 mg daily. The patient seems to be responding well to this and should continue this as an outpatient. The patient has been instructed to follow-up with her primary care physician for further management of her anxiety. There were some concerns with hypoxemia in this patient. The patient was reported to have some hypoxic episodes with activity. However I think this may have been related to the patient's tachycardia which is now resolved. Respiratory therapy test the patient and found that she was able to remain at 95 % on room air with activity. The patient should go home and continue using her nighttime oxygen only for sleep apnea. The patient was discharged home in stable condition with home health with home health. All of these instructions were explained to both the patient and her daughter who stated that they understood and had no further questions. Hospital plan during stay Acute Hematochezia most likely secondary to heparin -Discontinue heparin and warfarin -Blood pressure currently stable 106/67 -H&H is stable currently 8.8/28.4 -Repeat H&H this morning was 7.5/24.8 similar to the patient's 2:00 H&H of 7.5/ 24.5 -We will continue to monitor Hypotension -Blood pressure was 95/60 -We will hold patient's Lasix -Restart IV fluids at 75 mg an hour Suspected colon cancer, unknown chronicity, under workup -s/p laparoscopic right hemicolectomy by Dr. Caldwell on 12/29. POD#4. - CT performed in the ER demonstrating small bowel obstruction secondary to concentric lesion in the ascending colon, suspicious for adenocarcinoma. Discussed results with patient and family and are aware it could represent a malignancy -Colonoscopy was done 12/25. Biopsy pending. -2 units of FFPs were given prior to the colonoscopy on 12/24. One dose of Vitamin K 10mg IV was given on 12/26. -Post-op pain management and antibiotics per surgery. Transition to PO Tylenol and PRN Dilaudid 0.5mg. -Flagyl was d/c. 12/31/16. Patient also received 2 doses of Ancef post-op. -diet advanced to soft and can resume PO meds per surgery. -TPN discontinued 12/31/16 Tachycardia (with activity)- seems to be resolving -Continue metoprolol to 25 mg twice a day -Patient most likely has deconditioning consult PT -We will continue to monitor Acute bowel obstruction secondary to concentric lesion in the ascending colon, present on admission, resolved. -Patient presented with worsening abdominal pain and nausea, which improved after bowel movements on 12/23/16. Patient previously seen by Dr. Cisneros of GI with plan for colonoscopy -NG tube was D/C on 12/25. -PO Tylenol and prn Dilaudid available for pain management -PICC line placed 12/26. TPN started at 2100 on 12/26. Acute leukocytosis due to SBO, present on admission, improved. -Patient had mild leukocytosis 11.5, neutrophils 70.0 initially. -WBC increased slightly at POD#1, likely stress reaction. Trending down today. -Will continue to monitor signs and symptoms of infection. Chronic atrial fibrillation anticoagulated with Coumadin, present on admission, stable -Rate controlled. -Continue home dose of verapamil 180 mg daily -Continue Increase metoprolol to 25 mg twice a day -Last echo done in 2013 -Patient was on warfarin, which then changed to heparin drip before the surgery. - Per surgery's recommendation, will bridge Warfarin with heparin 12/31/16. - Warfarin dosing per pharmacy. Avoid supratherapeutic INR. Chronic hypertension, stable. -Furosemide 40mg PO daily was discontinued after surgery due to NPO status and patient's low blood pressure. -Hold Furosemide as patient is currently hypotensive Acute cystitis, not present on admission, active. - Urine culture grew E. coli that is pansensitive. - Patient is asymptomatic, but given her risks of infection, continue Ceftriaxone IV for 3 days. Should D/C Ceftriaxone on Tuesday 01/02. Obstructive sleep apnea managed with CPAP, stable, present on admission, ongoing -On O2 supplement. Restless leg syndrome, chronic, active. -Patient reports no improvement with home dose Pramipexole, but improvement on Dilaudid. -Discontinue PO Pramipexole. -Discontinue PRN Dilaudid available. -Patient to drink 4 ounces of tonic water daily -Start gabapentin 100 mg 3 times a day May have 200mg TID as needed -Follow up TSH within normal range - Folate within normal range -B12 labs within normal range -Continue to monitor Anxiety -Continue BuSpar 15 mg daily -Continue Restoril 15 mg by mouth daily at bedtime -We will continue to monitor Hypoxemia -Patient has been requiring transient use of oxygen to maintain sats above the high 80s once patient is stable we will have respiratory evaluate the patient for possible home O2 -Patient passed her respiratory evaluation with respiratory therapy maintaining 95% oxygen saturations with activity.. Disposition: Patient was improving and is still clinically stable however the patient had a bowel movement today mostly secondary to anticoagulation. All anticoagulation has been stopped will follow-up with the patient's H&H later today and in the morning. Patient may be more likely candidate for eliquis for her atrial fib but we will consider this after the patient is stabilized and no longer bleeding. PCP: Gastroenterology: Dr. Cisneros Fireproof Door Assembler: Dr. Rascon CODE STATUS: Full code disposition: Pending hospital course and surgery. Exam Vital Signs (Last) Date Time Temp Pulse Resp B/P Pulse Ox O2 Delivery O2 Flow Rate FiO2 01/04/17 11:02 94 01/04/17 10:29 Supplement Oxygen 01/04/17 09:43 36.5 17 107/65 93 01/04/17 04:19 2.00 Exam Physical Exam: GEN: Patient was awake, alert, responding appropriately to questions HEENT: PERRLA, EOMI, Neck soft supple, trachea midline, nomocephalic/atraumatic CV: +S1/S2, irregular, no murmur auscultated Respiratory: CTAB, no wheezes, rales, rhonchi GI: +bowel sounds x4, soft, compressible, non TTP EXT: no c/c/e Neuro: CN II-XII grossly intact Psych: mood and affect were appropriate Test 12/23/16 01:11 12/23/16 06:05 12/29/16 07:45 12/29/16 12:30 Lactic Acid Level 1.1mmol/L (0.4-2.0) Troponin T 0.010ug/L (0.0-0.011) Lipase 21U/L (13-60) Carcinoembryonic Antigen 2.6ng/mL (0.0-4.7) Urine Color Straw (YELLOW) Urine Appearance Hazy (CLEAR,HAZY) Urine pH 8.0 (5.0-8.0) Urine Specific Luck 1.010 (1.003-1.035) Urine Protein Negativemg/dL (NEG,TRACE) Urine Glucose (UA) Negativemg/dL (NEGATIVE) Urine Ketones Negativemg/dL (NEGATIVE) Urine Occult Blood Negative (NEGATIVE) Urine Nitrite Positive (NEGATIVE) Urine Bilirubin Negative (NEGATIVE) Urine Urobilinogen Normalmg/dL (NORMAL) Urine Leukocyte Esterase Negative (NEGATIVE) Urine RBC 0-2/hpf (0-2) Urine WBC 0-5/hpf (0-5) Urine Epithelial Cells Occasional/hpf (NONE-MOD) Urine Crystals None seen (NONE SEEN) Urine Bacteria Many/hpf (NONE-FEW) Urine Hyaline Casts None/lpf (NONE) Urine Granular Casts None seen (NONE SEEN) Urine Waxy Casts None seen (NONE SEEN) Urine Red Blood Cell Casts None seen (NONE SEEN) Urine White Blood Cell Casts None seen (NONE SEEN) Urine Mucus None seen (None Seen) Urine Trichomonas None seen (NONE SEEN) Urine Yeast None (NONE SEEN) Urinalysis Comment None Urine Culture Reflexed Indicated Hold Urine Received (Received) Test 12/30/16 03:50 01/01/17 04:45 01/02/17 02:45 01/02/17 10:15 Phosphorus Level 3.6mg/dL (2.5-4.9) Magnesium Level 2.2mg/dL (1.6-2.6) Triglycerides Level 69mg/dL (0-149) Neutrophils (%) (Auto) 48.3% (40-74) Lymphocytes (%) (Auto) 31.3% (14-46) Monocytes (%) (Auto) 13.1% (4-12) Eosinophils (%) (Auto) 6.4% (0-5) Basophils (%) (Auto) 0.5% (0-3) Thyroid Stimulating Hormone (TSH) 2.070uIU/mL (0.450-4.500) Free Thyroxine 1.28ng/dL (0.82-1.77) Activated Partial Thromboplast Time 61.8sec (22.8-33.0) Test 01/02/17 16:52 01/04/17 05:30 Vitamin B12 Level 665pg/mL (211-946) Folate 14.2ng/mL (>3.0) White Blood Count 7.5th/mm3 (3.8-10.1) Red Blood Count 2.99mil/mm3 (3.90-5.20) Hemoglobin 7.5g/dL (12.0-15.6) Hematocrit 24.8% (35.0-46.0) Mean Corpuscular Volume 82.9fL (81-100) Mean Corpuscular Hemoglobin 25.1pg (27.0-35.0) Mean Corpuscular Hemoglobin Concent 30.2% (32.0-37.0) Red Cell Distribution Width 14.9% (12.3-15.4) Platelet Count 340bil/L (150-400) Prothrombin Time 11.5sec (8.1-12.5) Prothromb Time International Ratio 1.07ratio Sodium Level 141mEq/L (134-144) Potassium Level 4.0mEq/L (3.5-5.2) Chloride Level 107mEq/L (97-108) Carbon Dioxide Level 24mmol/L (18-29) Blood Urea Nitrogen 16mg/dL (8-27) Creatinine 0.50mg/dL (0.57-1.00) Estimat Glomerular Filtration Rate 166mL/min (>59) Glucose Level 85mg/dL (60-99) Calcium Level 8.0mg/dL (8.5-10.1) Total Bilirubin 0.2mg/dL (0.0-1.2) Aspartate Amino Transf (AST/SGOT) 17U/L (0-50) Alanine Aminotransferase (ALT/SGPT) 11U/L (0-32) Alkaline Phosphatase 72U/L (25-165) Total Protein 4.9g/dL (6.4-8.4) Albumin 2.6g/dL (3.4-5.0) Discharge Medications Discharge Medications Apixaban (Eliquis) 5 Mg Tablet 5 MG PO BID Prescribed by: ORVILLE ALVARADO DO Buspirone (Buspirone) 15 Mg Tablet 15 MG PO DAILY Prescribed by: ORVILLE ALVARADO DO Cholecalciferol (Vitamin D3) (Vitamin D3) 1,000 Unit Tab.chew 1,000 UNIT PO DAILY (Reported) Folic Acid (Folic Acid) 0.8 Mg Tablet 0.8 MG PO DAILY (Reported) Gabapentin (Gabapentin) 100 Mg Capsule 100 MG PO TID Prescribed by: ORVILLE ALVARADO DO Pantoprazole DR (Pantoprazole DR) 40 Mg Tablet.dr 40 MG PO DAILY (Reported) Pramipexole Dihydrochloride (Mirapex) 0.25 Mg Tablet 0.5-1 TAB PO LATE AFTERNOON (Reported) Trazodone (Trazodone) 50 Mg Tablet 12.5-25 MG PO HS (Reported) Verapamil ER (Verapamil ER) 180 Mg Tablet.er 180 MG PO DAILY (Reported) As needed Acetaminophen (Acetaminophen) 500 Mg Tablet 1,000 MG PO Q8HR PRN PRN For Pain ( Reported) Temazepam (Restoril) 15 Mg Capsule 15 MG PO HS PRN PRN Insomnia Prescribed by: ORVILLE ALVARADO DO oxyCODONE (oxyCODONE) 5 Mg Tablet 5 MG PO Q4H PRN PRN For Moderate Pain Prescribed by: JIMENEZ REYES MD Miscellaneous Medications ([Lidocaine]) (Reported) Additional med instructions You have been prescribed gabapentin for restless leg syndrome is taking as needed for restless leg syndrome up to 3 times a day. If you are experiencing multiple episodes throughout the day then it will be better to take the medication regularly scheduled dosages times a day. You have also been prescribed Restoril which will help with restless leg as well as insomnia. Please take this medication only at night. Followup Plan Discharge Diet: No restrictions Discharge Activity: No restrictions Patient Instructions Please follow with your primary care provider to have a hemoglobin and hematocrit drawn in order to follow up with your anemia secondary to blood loss. If hemoglobin is above 8.5 please start taking the Elaquis that was prescribed. Is very important that you follow-up with this lab to ensure that the urine no longer bleeding. Please follow-up with Gen. surgery in 2 weeks Please follow-up with your division engineer within 2-3 weeks Follow-up Provider: Manju Monge MD Follow-up with PCP in: 1 week (if appointment has not already been made to call to make an appointment) Provider: Yoselyn Shay Follow-up in: 2 weeks (please follow up with surgery in 2 weeks and appointment has not already been made please call to make an appointment) Time spent Greater than 35 minutes copies to: Dirk Rascon MD; Manju Monge MD; Yoselyn Shay Precious L DO Jan 04, 2017 11:19
--- NOTE | 2017-01-04 13:39 | NUR ---
Discharge Pt discharged with and daughter home. All belongings with pt. PICC line removed by IV therapy. Discharge instruction reviewed. No questions at this time. Instructions were reviewed with daughter and pt.
== END 2017-01-04 13:30 | disposition home health service (06) | DRG 330 ==
LOC: SED 00:51 → PCC 03:25 → OSC 12-31 19:51
PROVIDERS: ADMIT Internal Medicine; ATTEND Internal Medicine
PROC: 0DBL8ZZ Excision of Transverse Colon, Via Natural or Artificial Opening Endoscopic (ICD-10-PCS; 2016-12-25 10:45)
PROC: 0DBK8ZX Excision of Ascending Colon, Via Natural or Artificial Opening Endoscopic, Diagnostic (ICD-10-PCS; 2016-12-25 10:45)
PROC: 30233K1 Transfusion of Nonautologous Frozen Plasma into Peripheral Vein, Percutaneous Approach (ICD-10-PCS; 2016-12-25 10:45)
PROC: 0FB04ZX Excision of Liver, Percutaneous Endoscopic Approach, Diagnostic (ICD-10-PCS; 2016-12-29)
PROC: 0DTF4ZZ Resection of Right Large Intestine, Percutaneous Endoscopic Approach (ICD-10-PCS; principal; 2016-12-29 07:30)
DX: K56.69 Other intestinal obstruction (principal); C18.2 Malignant neoplasm of ascending colon; N30.00 Acute cystitis without hematuria; K92.1 Melena; D68.32 Hemorrhagic disorder due to extrinsic circulating anticoagulants; D62 Acute posthemorrhagic anemia; I48.2 Chronic atrial fibrillation; G47.33 Obstructive sleep apnea (adult) (pediatric); G25.81 Restless legs syndrome; I10 Essential (primary) hypertension; E78.5 Hyperlipidemia, unspecified; Z79.01 Long term (current) use of anticoagulants; D12.3 Benign neoplasm of transverse colon; K63.5 Polyp of colon; B96.20 Unspecified Escherichia coli [E. coli] as the cause of diseases classified elsewhere; T45.515A Adverse effect of anticoagulants, initial encounter; R00.0 Tachycardia, unspecified